=== PATIENT | female | born 1945 | race Two or more races ===

== ENCOUNTER 2021-08-08 07:05 | Inpatient (IN) | payer MEDICARE, OTHER ==
[~2021-08-08] VITALS: Ht 172.7 cm; Wt 96.0 kg
[2021-08-08] MEDS ORDERED: ONDANSETRON HCL 4 MG/2 ML VIAL IV ONE (07:45)
[2021-08-08] MEDS ORDERED: HYDROmorphone HCL 2 MG/ML VL/or syr IV ONE (07:45)
[2021-08-08 08:00] LABS: Basophils # (auto) 0 10 ^3/uL (0-0.2); Basophils % (auto) 0.3 % (0.0-2.0); Eosinophils # (auto) 0 10 ^3/uL (0-0.8); Hematocrit 43.4 % (36.0-46.0); Hemoglobin 14.5 g/dL (12.2-16.2); Lymphocytes # (auto) 1.3 10 ^3/uL (0.4-5.4); Lymphocytes % (auto) 7.5 % (10.0-50.0); Mean Corpuscular Hemoglobin 29.1 pg (28.0-32.0); Mean Corpuscular Hgb Conc. 33.4 g/dL (32.0-36.0); Monocytes # (auto) 0.5 10 ^3/uL (0-1.3); Monocytes % (auto) 2.7 % (0.0-12.0); Neutrophils # (auto) 15.3 10 ^3/uL (1.6-8.6); Neutrophils % (auto) 89.5 % (37.0-80.0); Nucleated Red Blood Cells % 0.2 %; Red Blood Cells 4.99 10^6/uL (4.0-5.20); White Blood Cell 17.1 10^3/uL (4.4-10.8)
[2021-08-08 08:07] LABS: Albumin 3.6 g/dL (3.4-5.0); BUN/Creatinine Ratio 14.9; Bilirubin, Total 0.3 mg/dL (0.2-1.0); Calcium 9.4 mg/dL (8.5-10.1); Lactic Acid w/Reflex 4.5 mmol/L (0.4-2.0); Total Protein 7.7 g/dL (6.4-8.2)
[2021-08-08 08:16] LABS: Potassium 3.9 mmol/L (3.5-5.1)
[2021-08-08] MEDS ORDERED: SODIUM CHLORIDE 0.9% 2,000 ML IV ONE (08:45)
[2021-08-08] MEDS ORDERED: IOHEXOL 300 MG/ML 100ML BOTTLE IJ ONE (09:00)
[2021-08-08 09:49] LABS: Cholesterol 165 mg/dL (< 200)
[2021-08-08 09:52] LABS: HDL Cholesterol 71 mg/dL (40-59); LDL Cholesterol 78 mg/dL (< 100); Triglycerides 146 mg/dL (< 150)
[2021-08-08] MEDS ORDERED: NITROGLYCERIN 0.4 MG SL TAB SL PRN (10:15)
[2021-08-08] MEDS ORDERED: MORPHINE SULFATE INJECTION 2 MG/ML SYRG IV PRN ×2 (10:15)
[2021-08-08] MEDS ORDERED: PANTOPRAZOLE 40 MG/10 ML VIAL INJ IV ONE (10:15)
[2021-08-08 10:24] LABS: Urine Bacteria FEW /hpf (None Seen); Urine Blood Negative /uL (Negative); Urine Specific Gravity 1.045 (1.001-1.035); Urine WBC <1 /hpf (0 - 5)
[2021-08-08] MEDS ORDERED: IPRATROPIUM BROM 0.5 MG/2.5ML INH SOL NEB ONE ×2 (12:45)
[2021-08-08] MEDS ORDERED: MONTELUKAST SODIUM 10 MG TAB PO ONE ×2 (12:45→15:00)
[2021-08-08] MEDS ORDERED: LORazepam 0.5 MG TAB PO PRN ×2 (12:45→13:45)
[2021-08-08] MEDS ORDERED: DOCUSATE SOD 100 MG CAP PO PRN (12:45)
[2021-08-08] MEDS ORDERED: D5W/LACTATED RINGERS 1,000 ML IV SCH (12:45)
[2021-08-08] MEDS ORDERED: BUDESONIDE (INHALATION) 0.5 MG/2 ML NEB NEB ONE ×2 (12:45→14:30)
[2021-08-08] MEDS ORDERED: LACTULOSE 20Gm/30ML SOLN PO PRN (12:45)
[2021-08-08] MEDS ORDERED: hydrALAZINE HCL 20 MG/ML VL IV PRN (12:45)
[2021-08-08] MEDS ORDERED: ONDANSETRON HCL 4 MG/2 ML VIAL IV PRN (12:45)
[2021-08-08] MEDS ORDERED: HYDROcodone-ACET 5/325MG TAB PO ONE ×2 (12:45)
[2021-08-08] MEDS ORDERED: HYDROcodone-ACET 5/325MG TAB PO PRN (12:45)
[2021-08-08] MEDS ORDERED: PIPERACILLIN-TAZOB 3.375GM 100 ML IV ONE ×2 (13:30→14:30)
[2021-08-08] MEDS: D5W/LACTATED RINGERS 1,000 ML IV SCH (13:45)
[2021-08-08 14:00] VITALS: BP 136/94
[2021-08-08] MEDS ORDERED: IPRATROPIUM BROM 0.5 MG/2.5ML INH SOL NEB SCH ×2 (14:00)
[2021-08-08] MEDS ORDERED: ACETYLCYSTEINE 10 %(100MG/ML) SOL 4ML NEB SCH ×2 (14:00→14:15)
[2021-08-08 14:52] LABS: INR 1.12 (0.9-1.15); Partial Thromboplastin Time 27.1 sec (23.6-33.0)
[2021-08-08 14:59] LABS: Magnesium 2.1 mg/dL (1.6-2.6); Phosphorus 2.3 mg/dL (2.5-4.90)
[2021-08-08 16:00] VITALS: BP 153/80
[2021-08-08] MEDS: ONDANSETRON HCL 4 MG/2 ML VIAL IV PRN (16:12)
[2021-08-08] MEDS: HYDROcodone-ACET 5/325MG TAB PO PRN ×2 (16:12→22:14)
[2021-08-08] MEDS ORDERED: HYDR1TAB97 (17:57)
[2021-08-08] MEDS ORDERED: SIMV-8 PO (17:57)
[2021-08-08] MEDS ORDERED: TRAZ1TAB12 PO (17:57)
[2021-08-08] MEDS ORDERED: PIPERACILLIN-TAZOB 3.375GM 100 ML IV SCH (18:00)
[2021-08-08] MEDS: PIPERACILLIN-TAZOB 3.375GM 100 ML IV SCH (21:02)
[2021-08-08 22:00] VITALS: BP 141/75
[2021-08-08] MEDS ORDERED: MONTELUKAST SODIUM 10 MG TAB PO SCH (22:00)
[2021-08-08] MEDS ORDERED: BUDESONIDE (INHALATION) 0.5 MG/2 ML NEB NEB SCH ×2 (22:00)
[2021-08-08] MEDS: DOCUSATE SOD 100 MG CAP PO PRN (22:13)
[2021-08-09] MEDS: PIPERACILLIN-TAZOB 3.375GM 100 ML IV SCH ×2 (03:02→09:28)
[2021-08-09] MEDS: D5W/LACTATED RINGERS 1,000 ML IV SCH ×3 (03:05→23:21)
[2021-08-09] MEDS: HYDROcodone-ACET 5/325MG TAB PO PRN ×3 (04:15→19:59)
[2021-08-09 05:00] VITALS: BP 121/65
[2021-08-09 06:51] LABS: Cholesterol 115 mg/dL (< 200); HDL Cholesterol 69 mg/dL (40-59); LDL Cholesterol 38 mg/dL (< 100); Lipase 2112 U/L (73-393); Triglycerides 61 mg/dL (< 150)
[2021-08-09 08:00] VITALS: BP 135/68
[2021-08-09] MEDS: ONDANSETRON HCL 4 MG/2 ML VIAL IV PRN ×2 (08:04→21:56)
[2021-08-09] MEDS: DOCUSATE SOD 100 MG CAP PO PRN (08:05)
[2021-08-09] MEDS: LACTULOSE 20Gm/30ML SOLN PO PRN (08:05)
[2021-08-09 09:00] VITALS: BP 135/68
[2021-08-09] MEDS: PANTOPRAZOLE 40 MG/10 ML VIAL INJ IV SCH (09:21)
[2021-08-09] MEDS ORDERED: ASPirin 81 mg TAB PO SCH ×2 (10:00)
[2021-08-09] MEDS: HYDROmorphone HCL 2 MG/ML VL/or syr IV PRN ×3 (12:02→21:56)
[2021-08-09 12:45] VITALS: BP 136/72
[2021-08-09 17:00] VITALS: BP 123/63
[2021-08-09] MEDS: MONTELUKAST SODIUM 10 MG TAB PO SCH (21:55)
[2021-08-09 22:00] VITALS: BP 103/53
[2021-08-10] MEDS: ONDANSETRON HCL 4 MG/2 ML VIAL IV PRN (03:08)
[2021-08-10] MEDS: HYDROmorphone HCL 2 MG/ML VL/or syr IV PRN ×5 (03:08→21:31)
[2021-08-10 05:00] VITALS: BP 109/54
[2021-08-10 06:00] LABS: Basophils # (auto) 0 10 ^3/uL (0-0.2); Basophils % (auto) 0.1 % (0.0-2.0); Eosinophils # (auto) 0.1 10 ^3/uL (0-0.8); Eosinophils % (auto) 0.4 % (0.0-7.0); Hematocrit 34.9 % (36.0-46.0); Hemoglobin 11.3 g/dL (12.2-16.2); Lymphocytes # (auto) 1.2 10 ^3/uL (0.4-5.4); Lymphocytes % (auto) 6.5 % (10.0-50.0); Mean Corpuscular Hemoglobin 28.6 pg (28.0-32.0); Mean Corpuscular Hgb Conc. 32.3 g/dL (32.0-36.0); Mean Corpuscular Volume 88.8 fL (80.0-100.0); Monocytes % (auto) 5.4 % (0.0-12.0); Neutrophils # (auto) 16.3 10 ^3/uL (1.6-8.6); Neutrophils % (auto) 87.6 % (37.0-80.0); Nucleated Red Blood Cells % 0.1 %; Red Blood Cells 3.93 10^6/uL (4.0-5.20); Red Cell Distribution Width 14.7 % (11.8-14.3); White Blood Cell 18.6 10^3/uL (4.4-10.8)
[2021-08-10 07:45] LABS: Alanine Aminotransferase 10 U/L (13-56); Alkaline Phosphatase 57 U/L (45-117); Anion Gap 6 (5-15); Aspartate Aminotransferase 11 U/L (15-37); BUN/Creatinine Ratio 13.2; Blood Urea Nitrogen 10 mg/dL (7-18); Carbon Dioxide 26 mmol/L (21-32); Chloride 108 mmol/L (98-107); GFR African American 95 mL/min; GFR Non-African American 79 mL/min; Glucose 142 mg/dL (74-106); Potassium 3.3 mmol/L (3.5-5.1); Sodium 140 mmol/L (136-145)
[2021-08-10 07:46] LABS: Albumin 2.2 g/dL (3.4-5.0); Bilirubin, Total 0.5 mg/dL (0.2-1.0); Calcium 7.3 mg/dL (8.5-10.1); Cholesterol 108 mg/dL (< 200); HDL Cholesterol 56 mg/dL (40-59); LDL Cholesterol 39 mg/dL (< 100); Total Protein 5.9 g/dL (6.4-8.2); Triglycerides 60 mg/dL (< 150)
[2021-08-10] MEDS: levoFLOXacin 500MG 100 ML IV SCH (08:29)
[2021-08-10] MEDS: PANTOPRAZOLE 40 MG/10 ML VIAL INJ IV SCH (08:36)
[2021-08-10 09:00] VITALS: BP 142/46
[2021-08-10] MEDS ORDERED: FLEET ENEMA(ADULT) 135 ML PR ONE (12:45)
[2021-08-10 13:00] VITALS: BP 101/57
[2021-08-10] MEDS: D5W/LACTATED RINGERS 1,000 ML IV SCH ×2 (13:09→23:36)
[2021-08-10 16:36] VITALS: BP 116/66
[2021-08-10] MEDS: MONTELUKAST SODIUM 10 MG TAB PO SCH (21:29)
[2021-08-10 22:00] VITALS: BP 125/68
[2021-08-11] MEDS: HYDROmorphone HCL 2 MG/ML VL/or syr IV PRN ×5 (01:28→19:49)
[2021-08-11] MEDS: D5W/LACTATED RINGERS 1,000 ML IV SCH ×3 (04:45→23:20)
[2021-08-11 05:00] VITALS: BP_SYST 117; BP_SYST 130; BP_DIAS 67; BP_DIAS 69
[2021-08-11 09:00] VITALS: BP 115/59
[2021-08-11] MEDS ORDERED: POTASSIUM CHL 20MEQ/100ML 100 ML IV ONE (10:00)
[2021-08-11] MEDS: DOCUSATE SOD 100 MG CAP PO SCH ×2 (10:00→21:58)
[2021-08-11] MEDS: DOCUSATE SOD 100 MG CAP PO PRN (10:22)
[2021-08-11] MEDS: PANTOPRAZOLE 40 MG/10 ML VIAL INJ IV SCH (10:22)
[2021-08-11] MEDS: levoFLOXacin 500MG 100 ML IV SCH (10:22)
[2021-08-11 13:00] VITALS: BP 114/56
[2021-08-11 17:00] VITALS: BP 106/49
[2021-08-11] MEDS: LACTULOSE 20Gm/30ML SOLN PO PRN (21:59)
[2021-08-11] MEDS: MONTELUKAST SODIUM 10 MG TAB PO SCH (21:59)
[2021-08-12] MEDS: HYDROmorphone HCL 2 MG/ML VL/or syr IV PRN ×5 (00:05→18:53)
[2021-08-12 06:29] LABS: Basophils # (auto) 0 10 ^3/uL (0-0.2); Basophils % (auto) 0.2 % (0.0-2.0); Eosinophils # (auto) 0.2 10 ^3/uL (0-0.8); Eosinophils % (auto) 1.5 % (0.0-7.0); Hematocrit 34.4 % (36.0-46.0); Hemoglobin 11.3 g/dL (12.2-16.2); Lymphocytes # (auto) 1.2 10 ^3/uL (0.4-5.4); Lymphocytes % (auto) 8.7 % (10.0-50.0); Mean Corpuscular Hemoglobin 28.9 pg (28.0-32.0); Mean Corpuscular Hgb Conc. 32.8 g/dL (32.0-36.0); Monocytes % (auto) 7.3 % (0.0-12.0); Neutrophils # (auto) 11.3 10 ^3/uL (1.6-8.6); Neutrophils % (auto) 82.3 % (37.0-80.0); Red Cell Distribution Width 14.3 % (11.8-14.3); White Blood Cell 13.8 10^3/uL (4.4-10.8)
[2021-08-12 07:24] LABS: BUN/Creatinine Ratio 9.2; Potassium 3.2 mmol/L (3.5-5.1)
[2021-08-12 09:12] VITALS: BP 134/56
[2021-08-12] MEDS: DOCUSATE SOD 100 MG CAP PO SCH ×2 (09:35→22:43)
[2021-08-12] MEDS: levoFLOXacin 500MG 100 ML IV SCH (09:35)
[2021-08-12] MEDS ORDERED: IOHEXOL 300 MG/ML 100ML BOTTLE IJ ONE (10:24)
[2021-08-12 12:00] VITALS: BP 122/61
[2021-08-12] MEDS: POTASSIUM CHL 20MEQ/100ML 100 ML IV SCH ×2 (12:26→17:32)
[2021-08-12] MEDS: D5W/LACTATED RINGERS 1,000 ML IV SCH ×2 (12:41→20:15)
[2021-08-12] MEDS: metroNIDAZOLE 500MG/100ML 100 ML IV SCH ×2 (14:07→22:43)
[2021-08-12 17:00] VITALS: BP 145/80
[2021-08-12 22:00] VITALS: BP 121/71
[2021-08-12] MEDS: HYDROcodone-ACET 5/325MG TAB PO PRN (22:44)
[2021-08-12] MEDS: MONTELUKAST SODIUM 10 MG TAB PO SCH (22:45)
[2021-08-13] MEDS: HYDROmorphone HCL 2 MG/ML VL/or syr IV PRN ×6 (00:14→22:42)
[2021-08-13 05:00] VITALS: BP 123/76
[2021-08-13] MEDS: metroNIDAZOLE 500MG/100ML 100 ML IV SCH ×3 (05:52→22:01)
[2021-08-13] MEDS: D5W/LACTATED RINGERS 1,000 ML IV SCH ×2 (06:04→16:18)
[2021-08-13 06:34] LABS: Basophils # (auto) 0 10 ^3/uL (0-0.2); Basophils % (auto) 0.3 % (0.0-2.0); Eosinophils # (auto) 0.3 10 ^3/uL (0-0.8); Eosinophils % (auto) 2.4 % (0.0-7.0); Hematocrit 32.1 % (36.0-46.0); Hemoglobin 10.5 g/dL (12.2-16.2); Lymphocytes # (auto) 1.3 10 ^3/uL (0.4-5.4); Mean Corpuscular Hemoglobin 28.2 pg (28.0-32.0); Mean Corpuscular Hgb Conc. 32.6 g/dL (32.0-36.0); Mean Corpuscular Volume 86.6 fL (80.0-100.0); Monocytes # (auto) 0.9 10 ^3/uL (0-1.3); Monocytes % (auto) 7.7 % (0.0-12.0); Neutrophils # (auto) 9.1 10 ^3/uL (1.6-8.6); Neutrophils % (auto) 78.6 % (37.0-80.0); Red Cell Distribution Width 14.2 % (11.8-14.3); White Blood Cell 11.6 10^3/uL (4.4-10.8)
[2021-08-13 06:45] LABS: BUN/Creatinine Ratio 4.9; Calcium 7.4 mg/dL (8.5-10.1); Magnesium 2.2 mg/dL (1.6-2.6); Potassium 3.1 mmol/L (3.5-5.1)
[2021-08-13 09:00] VITALS: BP 135/68
[2021-08-13] MEDS: DOCUSATE SOD 100 MG CAP PO SCH (09:34)
[2021-08-13] MEDS: levoFLOXacin 500MG 100 ML IV SCH (09:35)
[2021-08-13] MEDS ORDERED: TPN PER PHARMACY 0 ML IV SCH (10:00)
[2021-08-13] MEDS ORDERED: ENOXAPARIN SOD 40 MG/0.4 ML SYRINGE SC ONE (10:00)
[2021-08-13] MEDS ORDERED: PANTOPRAZOLE 40 MG/10 ML VIAL INJ IV ONE (10:00)
[2021-08-13] MEDS: POTASSIUM CHL 20MEQ/100ML 100 ML IV SCH ×2 (10:54→13:14)
[2021-08-13 11:48] LABS: Magnesium 2.1 mg/dL (1.6-2.6)
[2021-08-13 11:57] LABS: Albumin 1.8 g/dL (3.4-5.0); BUN/Creatinine Ratio 7.1; Bilirubin, Total 0.6 mg/dL (0.2-1.0); Calcium 7.8 mg/dL (8.5-10.1); Total Protein 5.6 g/dL (6.4-8.2)
[2021-08-13 13:00] VITALS: BP 127/72
[2021-08-13] MEDS ORDERED: SODIUM PHOSPHATES 40 MEQ in D5W 5% 250 ML IV ONE (13:30)
[2021-08-13] MEDS ORDERED: DEXTROSE (50%) 50ML SYRG IV SCH (13:30)
[2021-08-13 16:47] VITALS: BP 140/83
[2021-08-13] MEDS: ACCU-CHEK COMFORT CURVE STRIP VI SCH (17:54)
[2021-08-13] MEDS: InsuLIN REG 1unit/0.01ml Soln (100units/ml) SC SCH (17:55)
[2021-08-13] MEDS ORDERED: PPN PER PHARMACY IV NR ×8 (20:00)
[2021-08-13] MEDS: HYDROcodone-ACET 5/325MG TAB PO PRN (21:46)
[2021-08-13 22:00] VITALS: BP 158/71
[2021-08-14] MEDS: InsuLIN REG 1unit/0.01ml Soln (100units/ml) SC SCH ×5 (00:04→23:26)
[2021-08-14] MEDS: ACCU-CHEK COMFORT CURVE STRIP VI SCH ×5 (00:04→23:26)
[2021-08-14] MEDS: D5W/LACTATED RINGERS 1,000 ML IV SCH (02:15)
[2021-08-14] MEDS: HYDROmorphone HCL 2 MG/ML VL/or syr IV PRN ×5 (04:49→23:25)
[2021-08-14 05:00] VITALS: BP 147/67
[2021-08-14] MEDS: metroNIDAZOLE 500MG/100ML 100 ML IV SCH ×3 (05:34→22:00)
[2021-08-14 06:35] LABS: Basophils # (auto) 0 10 ^3/uL (0-0.2); Basophils % (auto) 0.3 % (0.0-2.0); Eosinophils # (auto) 0.2 10 ^3/uL (0-0.8); Eosinophils % (auto) 1.7 % (0.0-7.0); Hematocrit 30.7 % (36.0-46.0); Hemoglobin 10.3 g/dL (12.2-16.2); Lymphocytes # (auto) 1.2 10 ^3/uL (0.4-5.4); Lymphocytes % (auto) 10.5 % (10.0-50.0); Mean Corpuscular Hemoglobin 29.2 pg (28.0-32.0); Mean Corpuscular Hgb Conc. 33.7 g/dL (32.0-36.0); Mean Corpuscular Volume 86.6 fL (80.0-100.0); Monocytes % (auto) 8.9 % (0.0-12.0); Neutrophils # (auto) 9.3 10 ^3/uL (1.6-8.6); Neutrophils % (auto) 78.6 % (37.0-80.0); Nucleated Red Blood Cells % 0.1 %; Red Blood Cells 3.54 10^6/uL (4.0-5.20); Red Cell Distribution Width 14.6 % (11.8-14.3); White Blood Cell 11.8 10^3/uL (4.4-10.8)
[2021-08-14 06:42] LABS: Albumin 1.6 g/dL (3.4-5.0); Calcium 7.6 mg/dL (8.5-10.1); Magnesium 2.2 mg/dL (1.6-2.6)
[2021-08-14 06:46] LABS: BUN/Creatinine Ratio 10.7; Bilirubin, Total 0.3 mg/dL (0.2-1.0); Phosphorus 1.9 mg/dL (2.5-4.90); Total Protein 5.5 g/dL (6.4-8.2)
[2021-08-14 06:49] LABS: Potassium 2.8 mmol/L (3.5-5.1)
[2021-08-14] MEDS ORDERED: POTASSIUM CHL 20 Meq TABLET PO ONE (07:45)
[2021-08-14] MEDS ORDERED: POTASSIUM PHOSPHATE 44 MEQ in D5W 5% 250 ML IV ONE (08:15)
[2021-08-14 09:00] VITALS: BP 124/71
[2021-08-14] MEDS: levoFLOXacin 500MG 100 ML IV SCH (10:06)
[2021-08-14] MEDS: PANTOPRAZOLE 40 MG/10 ML VIAL INJ IV SCH (10:07)
[2021-08-14] MEDS: ENOXAPARIN SOD 40 MG/0.4 ML SYRINGE SC SCH (10:08)
[2021-08-14] MEDS: LACTATED RINGER'S 1,000 ML IV SCH (12:40)
[2021-08-14 13:00] VITALS: BP 131/87
[2021-08-14 17:00] VITALS: BP 150/77
[2021-08-14] MEDS ORDERED: PPN PER PHARMACY IV NR ×10 (20:00)
[2021-08-14 22:00] VITALS: BP 153/78
[2021-08-14] MEDS: HYDROcodone-ACET 5/325MG TAB PO PRN (22:00)
[2021-08-15] MEDS: HYDROmorphone HCL 2 MG/ML VL/or syr IV PRN ×4 (04:04→22:02)
[2021-08-15] MEDS: ACCU-CHEK COMFORT CURVE STRIP VI SCH ×3 (05:32→18:02)
[2021-08-15] MEDS: metroNIDAZOLE 500MG/100ML 100 ML IV SCH ×3 (05:32→22:02)
[2021-08-15] MEDS: InsuLIN REG 1unit/0.01ml Soln (100units/ml) SC SCH ×3 (05:34→18:00)
[2021-08-15] MEDS: LACTATED RINGER'S 1,000 ML IV SCH (06:36)
[2021-08-15 06:43] LABS: Potassium 3.6 mmol/L (3.5-5.1)
[2021-08-15 06:50] LABS: Albumin 1.6 g/dL (3.4-5.0); BUN/Creatinine Ratio 18.4; Bilirubin, Total 0.3 mg/dL (0.2-1.0); Calcium 7.8 mg/dL (8.5-10.1); Magnesium 2.2 mg/dL (1.6-2.6); Phosphorus 2.1 mg/dL (2.5-4.90); Total Protein 5.6 g/dL (6.4-8.2)
[2021-08-15 09:00] VITALS: BP 166/71
[2021-08-15] MEDS: levoFLOXacin 500MG 100 ML IV SCH (09:12)
[2021-08-15] MEDS: PANTOPRAZOLE 40 MG/10 ML VIAL INJ IV SCH (09:12)
[2021-08-15] MEDS: ENOXAPARIN SOD 40 MG/0.4 ML SYRINGE SC SCH (09:13)
[2021-08-15] MEDS: HYDROcodone-ACET 5/325MG TAB PO PRN ×2 (09:24→16:41)
[2021-08-15] MEDS ORDERED: POTASSIUM PHOSPHATE 22 MEQ in SODIUM CHL 0.9% 100 ML IV ONE (10:00)
[2021-08-15 13:00] VITALS: BP 129/73
[2021-08-15 17:00] VITALS: BP 158/87
[2021-08-15] MEDS ORDERED: PPN PER PHARMACY IV NR ×9 (20:00)
[2021-08-15 21:27] VITALS: BP 163/95
[2021-08-15] MEDS: hydrALAZINE HCL 20 MG/ML VL IV PRN (22:55)
[2021-08-16] MEDS: HYDROcodone-ACET 5/325MG TAB PO PRN ×2 (00:06→09:59)
[2021-08-16] MEDS: ACCU-CHEK COMFORT CURVE STRIP VI SCH ×5 (00:13→23:28)
[2021-08-16] MEDS: InsuLIN REG 1unit/0.01ml Soln (100units/ml) SC SCH ×5 (00:14→23:27)
[2021-08-16] MEDS: LACTATED RINGER'S 1,000 ML IV SCH ×2 (03:06→23:26)
[2021-08-16] MEDS: HYDROmorphone HCL 2 MG/ML VL/or syr IV PRN ×2 (03:22→20:36)
[2021-08-16 06:15] LABS: Potassium 3.3 mmol/L (3.5-5.1)
[2021-08-16] MEDS: metroNIDAZOLE 500MG/100ML 100 ML IV SCH ×3 (06:18→22:17)
[2021-08-16 06:28] LABS: Albumin 1.8 g/dL (3.4-5.0); BUN/Creatinine Ratio 15.6; Bilirubin, Total 0.4 mg/dL (0.2-1.0); Calcium 8.1 mg/dL (8.5-10.1); Magnesium 2.3 mg/dL (1.6-2.6); Phosphorus 2.1 mg/dL (2.5-4.90)
[2021-08-16 09:00] VITALS: BP 159/89
[2021-08-16] MEDS ORDERED: POTASSIUM CHL 20MEQ/100ML 100 ML IV ONE (09:00)
[2021-08-16] MEDS: PANTOPRAZOLE 40 MG/10 ML VIAL INJ IV SCH (09:59)
[2021-08-16] MEDS: levoFLOXacin 500MG 100 ML IV SCH (10:00)
[2021-08-16] MEDS: ENOXAPARIN SOD 40 MG/0.4 ML SYRINGE SC SCH (10:00)
[2021-08-16] MEDS: hydrALAZINE HCL 20 MG/ML VL IV PRN (10:19)
[2021-08-16] MEDS ORDERED: POTASSIUM PHOSP 26.4MEQ(18MMOL) IN NS 100 ML IV ONE (11:00)
[2021-08-16] MEDS: ACETAMINOPHEN 325 MG TAB PO PRN (11:17)
[2021-08-16 13:00] VITALS: BP 109/66
[2021-08-16 16:55] VITALS: BP 112/71
[2021-08-16] MEDS ORDERED: PPN PER PHARMACY IV NR ×10 (20:00)
[2021-08-16 22:00] VITALS: BP 139/65
[2021-08-17] MEDS: HYDROmorphone HCL 2 MG/ML VL/or syr IV PRN ×4 (04:10→22:10)
[2021-08-17 05:00] VITALS: BP 184/84
[2021-08-17] MEDS: metroNIDAZOLE 500MG/100ML 100 ML IV SCH ×3 (06:38→21:39)
[2021-08-17] MEDS: ACCU-CHEK COMFORT CURVE STRIP VI SCH ×3 (06:38→18:18)
[2021-08-17] MEDS: hydrALAZINE HCL 20 MG/ML VL IV PRN (06:42)
[2021-08-17] MEDS: InsuLIN REG 1unit/0.01ml Soln (100units/ml) SC SCH ×3 (06:43→18:00)
[2021-08-17 07:28] LABS: Albumin 1.7 g/dL (3.4-5.0); Calcium 7.5 mg/dL (8.5-10.1); Magnesium 2.4 mg/dL (1.6-2.6); Potassium 3.3 mmol/L (3.5-5.1)
[2021-08-17 07:33] LABS: Bilirubin, Total 0.2 mg/dL (0.2-1.0); Phosphorus 1.9 mg/dL (2.5-4.90); Total Protein 5.6 g/dL (6.4-8.2)
[2021-08-17] MEDS: ACETAMINOPHEN 325 MG TAB PO PRN ×2 (07:43→12:40)
[2021-08-17] MEDS ORDERED: POTASSIUM PHOSPHATE 22 MEQ in SODIUM CHL 0.9% 100 ML IV ONE (08:15)
[2021-08-17 08:46] VITALS: BP 146/74
[2021-08-17] MEDS: levoFLOXacin 500MG 100 ML IV SCH (09:53)
[2021-08-17] MEDS: PANTOPRAZOLE 40 MG/10 ML VIAL INJ IV SCH (09:54)
[2021-08-17] MEDS: ENOXAPARIN SOD 40 MG/0.4 ML SYRINGE SC SCH (09:54)
[2021-08-17 13:05] VITALS: BP 124/74
[2021-08-17] MEDS: HYDROcodone-ACET 5/325MG TAB PO PRN (15:21)
[2021-08-17] MEDS ORDERED: METOPROLOL TARTRATE 50 MG TAB PO ONE (16:30)
[2021-08-17] MEDS ORDERED: VANCOMYCIN 1GM/250ML 250 ML IV ONE (16:30)
[2021-08-17] MEDS ORDERED: VANCOMYCIN PER PHARMACY 0 MG IV SCH (16:30)
[2021-08-17] MEDS ORDERED: LACTATED RINGER'S 1,000 ML IV SCH ×2 (16:30→17:45)
[2021-08-17 17:30] VITALS: BP 124/61
[2021-08-17] MEDS ORDERED: PPN PER PHARMACY IV NR ×11 (20:00)
[2021-08-17 22:00] VITALS: BP 145/76
[2021-08-18] MEDS: HYDROmorphone HCL 2 MG/ML VL/or syr IV PRN ×5 (03:27→22:13)
[2021-08-18 05:00] VITALS: BP 114/58
[2021-08-18] MEDS: VANCOMYCIN 1GM/250ML 250 ML IV SCH ×2 (05:00→17:05)
[2021-08-18] MEDS: InsuLIN REG 1unit/0.01ml Soln (100units/ml) SC SCH ×4 (06:00→18:00)
[2021-08-18] MEDS: ACCU-CHEK COMFORT CURVE STRIP VI SCH ×4 (06:00→18:48)
[2021-08-18 06:45] LABS: Basophils # (auto) 0 10 ^3/uL (0-0.2); Basophils % (auto) 0.4 % (0.0-2.0); Eosinophils # (auto) 0 10 ^3/uL (0-0.8); Eosinophils % (auto) 0.1 % (0.0-7.0); Hematocrit 30.8 % (36.0-46.0); Hemoglobin 10.3 g/dL (12.2-16.2); Lymphocytes # (auto) 0.6 10 ^3/uL (0.4-5.4); Lymphocytes % (auto) 5.8 % (10.0-50.0); Mean Corpuscular Hemoglobin 28.1 pg (28.0-32.0); Mean Corpuscular Hgb Conc. 33.3 g/dL (32.0-36.0); Mean Corpuscular Volume 84.4 fL (80.0-100.0); Monocytes # (auto) 0.5 10 ^3/uL (0-1.3); Monocytes % (auto) 4.7 % (0.0-12.0); Neutrophils # (auto) 9.9 10 ^3/uL (1.6-8.6); Red Blood Cells 3.65 10^6/uL (4.0-5.20); Red Cell Distribution Width 15.2 % (11.8-14.3); White Blood Cell 11.1 10^3/uL (4.4-10.8)
[2021-08-18] MEDS: metroNIDAZOLE 500MG/100ML 100 ML IV SCH ×3 (07:00→22:17)
[2021-08-18 07:04] LABS: Potassium 3.2 mmol/L (3.5-5.1)
[2021-08-18 07:16] LABS: Albumin 1.7 g/dL (3.4-5.0); BUN/Creatinine Ratio 28.6; Bilirubin, Total 0.3 mg/dL (0.2-1.0); Calcium 7.2 mg/dL (8.5-10.1); Magnesium 2.3 mg/dL (1.6-2.6); Total Protein 5.5 g/dL (6.4-8.2)
[2021-08-18 08:30] VITALS: BP 100/56
[2021-08-18] MEDS ORDERED: POTASSIUM PHOSPHATE 22 MEQ in SODIUM CHL 0.9% 100 ML IV ONE (08:30)
[2021-08-18] MEDS ORDERED: POTASSIUM PHOSPHATE 44 MEQ in D5W 5% 250 ML IV ONE (08:30)
[2021-08-18] MEDS: LACTATED RINGER'S 1,000 ML IV SCH (09:30)
[2021-08-18] MEDS ORDERED: METOPROLOL TARTRATE 25 MG TAB PO SCH (10:00)
[2021-08-18] MEDS: levoFLOXacin 500MG 100 ML IV SCH (10:11)
[2021-08-18] MEDS: PANTOPRAZOLE 40 MG/10 ML VIAL INJ IV SCH (10:11)
[2021-08-18] MEDS: ENOXAPARIN SOD 40 MG/0.4 ML SYRINGE SC SCH (10:12)
[2021-08-18 12:45] VITALS: BP 119/69
[2021-08-18 17:00] VITALS: BP 145/52
[2021-08-18] MEDS ORDERED: ENOXAPARIN SOD 100 MG/1 ML SYRINGE SC ONE (17:30)
[2021-08-18] MEDS ORDERED: PPN PER PHARMACY IV NR ×12 (20:00)
[2021-08-18 22:00] VITALS: BP 118/48
[2021-08-18] MEDS: METOPROLOL TARTRATE 25 MG TAB PO SCH (22:18)
[2021-08-19] MEDS: LACTATED RINGER'S 1,000 ML IV SCH ×3 (00:50→11:15)
[2021-08-19] MEDS: ACCU-CHEK COMFORT CURVE STRIP VI SCH ×5 (00:51→23:26)
[2021-08-19 05:00] VITALS: BP 110/65
[2021-08-19] MEDS: metroNIDAZOLE 500MG/100ML 100 ML IV SCH ×3 (05:17→21:43)
[2021-08-19] MEDS: HYDROmorphone HCL 2 MG/ML VL/or syr IV PRN ×4 (05:19→22:11)
[2021-08-19] MEDS: InsuLIN REG 1unit/0.01ml Soln (100units/ml) SC SCH ×5 (05:34→23:27)
[2021-08-19 06:16] LABS: Basophils # (auto) 0 10 ^3/uL (0-0.2); Basophils % (auto) 0.3 % (0.0-2.0); Eosinophils # (auto) 0.1 10 ^3/uL (0-0.8); Eosinophils % (auto) 1.2 % (0.0-7.0); Hematocrit 28.9 % (36.0-46.0); Hemoglobin 9.8 g/dL (12.2-16.2); Lymphocytes # (auto) 0.9 10 ^3/uL (0.4-5.4); Lymphocytes % (auto) 10.5 % (10.0-50.0); Mean Corpuscular Hemoglobin 28.8 pg (28.0-32.0); Mean Corpuscular Hgb Conc. 34.1 g/dL (32.0-36.0); Mean Corpuscular Volume 84.3 fL (80.0-100.0); Monocytes # (auto) 0.8 10 ^3/uL (0-1.3); Monocytes % (auto) 8.7 % (0.0-12.0); Neutrophils % (auto) 79.3 % (37.0-80.0); Red Blood Cells 3.42 10^6/uL (4.0-5.20); Red Cell Distribution Width 15.1 % (11.8-14.3); White Blood Cell 8.9 10^3/uL (4.4-10.8)
[2021-08-19 06:32] LABS: Albumin 1.5 g/dL (3.4-5.0); Calcium 7.4 mg/dL (8.5-10.1); Magnesium 2.5 mg/dL (1.6-2.6); Potassium 3.7 mmol/L (3.5-5.1)
[2021-08-19 06:34] LABS: BUN/Creatinine Ratio 29.1
[2021-08-19 06:36] LABS: Bilirubin, Total 0.3 mg/dL (0.2-1.0); Phosphorus 2.9 mg/dL (2.5-4.90)
[2021-08-19] MEDS ORDERED: VANCOMYCIN 1GM/250ML 250 ML IV SCH ×2 (08:00→09:45)
[2021-08-19] MEDS: PANTOPRAZOLE 40 MG/10 ML VIAL INJ IV SCH (08:33)
[2021-08-19] MEDS: METOPROLOL TARTRATE 25 MG TAB PO SCH ×2 (08:35→21:49)
[2021-08-19] MEDS: ENOXAPARIN SOD 100 MG/1 ML SYRINGE SC SCH ×2 (08:36→21:44)
[2021-08-19 09:00] VITALS: BP 134/55
[2021-08-19] MEDS: levoFLOXacin 500MG 100 ML IV SCH (10:46)
[2021-08-19 13:00] VITALS: BP 153/69
[2021-08-19 17:04] VITALS: BP 154/56
[2021-08-19] MEDS: SALINE 0.65 % NASAL SPRAY 45ML BOTTLE EACHNOSTRI SCH ×2 (18:03→21:43)
[2021-08-19] MEDS: VANCOMYCIN 1GM/250ML 250 ML IV SCH (18:14)
[2021-08-19] MEDS ORDERED: PPN PER PHARMACY IV NR ×12 (20:00)
[2021-08-19 22:00] VITALS: BP 178/61
[2021-08-20] MEDS: VANCOMYCIN 1GM/250ML 250 ML IV SCH (03:29)
[2021-08-20] MEDS: HYDROmorphone HCL 2 MG/ML VL/or syr IV PRN ×4 (03:31→17:05)
[2021-08-20 05:00] VITALS: BP 159/69
[2021-08-20] MEDS: SALINE 0.65 % NASAL SPRAY 45ML BOTTLE EACHNOSTRI SCH ×4 (05:24→22:00)
[2021-08-20] MEDS: metroNIDAZOLE 500MG/100ML 100 ML IV SCH ×3 (05:24→22:06)
[2021-08-20] MEDS: ACCU-CHEK COMFORT CURVE STRIP VI SCH ×3 (05:25→17:09)
[2021-08-20] MEDS: InsuLIN REG 1unit/0.01ml Soln (100units/ml) SC SCH ×3 (05:25→17:08)
[2021-08-20] MEDS: hydrALAZINE HCL 20 MG/ML VL IV PRN (05:48)
[2021-08-20 07:06] LABS: Albumin 1.6 g/dL (3.4-5.0); Calcium 7.2 mg/dL (8.5-10.1); Magnesium 2.3 mg/dL (1.6-2.6); Potassium 3.5 mmol/L (3.5-5.1)
[2021-08-20 07:12] LABS: Bilirubin, Total 0.4 mg/dL (0.2-1.0); Phosphorus 1.9 mg/dL (2.5-4.90); Total Protein 5.4 g/dL (6.4-8.2)
[2021-08-20] MEDS ORDERED: POTASSIUM PHOSPHATE 44 MEQ in D5W 5% 250 ML IV ONE ×4 (08:00)
[2021-08-20 09:00] VITALS: BP 165/81
[2021-08-20] MEDS: METOPROLOL TARTRATE 25 MG TAB PO SCH (10:01)
[2021-08-20] MEDS: PANTOPRAZOLE 40 MG/10 ML VIAL INJ IV SCH (10:01)
[2021-08-20] MEDS: levoFLOXacin 500MG 100 ML IV SCH (10:01)
[2021-08-20] MEDS: ENOXAPARIN SOD 100 MG/1 ML SYRINGE SC SCH ×2 (10:02→22:10)
[2021-08-20] MEDS: LACTATED RINGER'S 1,000 ML IV SCH (11:55)
[2021-08-20 13:00] VITALS: BP 161/70
[2021-08-20 17:00] VITALS: BP 186/87
[2021-08-20] MEDS ORDERED: PPN PER PHARMACY IV NR ×24 (20:00)
[2021-08-20 22:00] VITALS: BP 180/71
[2021-08-20] MEDS ORDERED: METOPROLOL TARTRATE 25 MG TAB PO SCH (22:00)
[2021-08-21] VITALS (16 sets, daily range): BP systolic 107–190; BP diastolic 59–92
[2021-08-21] MEDS: ONDANSETRON HCL 4 MG/2 ML VIAL IV PRN (02:47)
[2021-08-21] MEDS: ACCU-CHEK COMFORT CURVE STRIP VI SCH ×5 (06:00→23:49)
[2021-08-21] MEDS: metroNIDAZOLE 500MG/100ML 100 ML IV SCH (06:00)
[2021-08-21] MEDS: SALINE 0.65 % NASAL SPRAY 45ML BOTTLE EACHNOSTRI SCH ×4 (06:00→20:34)
[2021-08-21] MEDS: InsuLIN REG 1unit/0.01ml Soln (100units/ml) SC SCH ×5 (06:00→23:49)
[2021-08-21 06:45] LABS: Hemoglobin 10.7 g/dL (12.2-16.2); Mean Corpuscular Hemoglobin 27.9 pg (28.0-32.0); Mean Corpuscular Hgb Conc. 33.3 g/dL (32.0-36.0); Mean Corpuscular Volume 83.6 fL (80.0-100.0); Red Blood Cells 3.83 10^6/uL (4.0-5.20); Red Cell Distribution Width 15.2 % (11.8-14.3); White Blood Cell 21.3 10^3/uL (4.4-10.8)
[2021-08-21 06:47] LABS: Basophils % (manual) 0 (0.0-2.0); Blast Cells 0; Eosinophils % (manual) 0 (0-7); Metamyelocytes % 0; Myelocytes % 0; Promyelocytes % 0; Reactive Lymphocytes 0
[2021-08-21 06:58] LABS: Albumin 1.9 g/dL (3.4-5.0); Calcium 7.6 mg/dL (8.5-10.1); Magnesium 2.2 mg/dL (1.6-2.6); Potassium 3.5 mmol/L (3.5-5.1)
[2021-08-21 07:01] LABS: Bilirubin, Total 0.5 mg/dL (0.2-1.0); Phosphorus 2.2 mg/dL (2.5-4.90)
[2021-08-21] MEDS ORDERED: POTASSIUM PHOSPHATE 22 MEQ in SODIUM CHL 0.9% 100 ML IV ONE (08:00)
[2021-08-21 08:11] LABS: Band Neutrophils % (manual) 18; Lymphocytes % (manual) 3 (10.0-50.0); Monocytes % (manual) 2 (0-12)
[2021-08-21] MEDS ORDERED: POTASSIUM PHOSPHATE 44 MEQ in D5W 5% 250 ML IV ONE (08:30)
[2021-08-21] MEDS ORDERED: MEROPENEM 1GM IVPB 100 ML IV ONE (09:45)
[2021-08-21] MEDS ORDERED: VANCOMYCIN PER PHARMACY 0 MG IV SCH (09:45)
[2021-08-21] MEDS ORDERED: FLUCONAZOLE 200MG/100ML 100 ML IV ONE (09:45)
[2021-08-21] MEDS ORDERED: VANCOMYCIN 1GM/250ML 250 ML IV ONE (10:00)
[2021-08-21] MEDS: PANTOPRAZOLE 40 MG/10 ML VIAL INJ IV SCH (10:00)
[2021-08-21] MEDS: ENOXAPARIN SOD 100 MG/1 ML SYRINGE SC SCH ×2 (10:00→20:32)
[2021-08-21] MEDS: FLUCONAZOLE 200MG/100ML 100 ML IV SCH (10:00)
[2021-08-21 10:50] LABS: Urine Bacteria NONE SEEN /hpf (None Seen); Urine Blood Negative /uL (Negative); Urine Specific Gravity 1.008 (1.001-1.035); Urine WBC 2 /hpf (0 - 5)
[2021-08-21] MEDS: hydrALAZINE HCL 20 MG/ML VL IV PRN ×2 (15:00→18:50)
[2021-08-21] MEDS: MEROPENEM 1GM IVPB 100 ML IV SCH (18:00)
[2021-08-21] MEDS ORDERED: PPN PER PHARMACY IV NR ×12 (20:00)
[2021-08-21] MEDS: VANCOMYCIN 1GM/250ML 250 ML IV SCH (21:55)
[2021-08-22] VITALS (13 sets, daily range): BP systolic 103–176; BP diastolic 58–77
[2021-08-22] MEDS: MEROPENEM 1GM IVPB 100 ML IV SCH ×3 (02:33→17:32)
[2021-08-22 03:56] LABS: Basophils # (auto) 0.1 10 ^3/uL (0-0.2); Basophils % (auto) 0.6 % (0.0-2.0); Eosinophils # (auto) 0.3 10 ^3/uL (0-0.8); Eosinophils % (auto) 1.7 % (0.0-7.0); Hematocrit 30.3 % (36.0-46.0); Lymphocytes # (auto) 2.1 10 ^3/uL (0.4-5.4); Lymphocytes % (auto) 14.2 % (10.0-50.0); Mean Corpuscular Hemoglobin 28.3 pg (28.0-32.0); Mean Corpuscular Hgb Conc. 33.1 g/dL (32.0-36.0); Mean Corpuscular Volume 85.7 fL (80.0-100.0); Monocytes # (auto) 0.9 10 ^3/uL (0-1.3); Monocytes % (auto) 6.3 % (0.0-12.0); Neutrophils # (auto) 11.6 10 ^3/uL (1.6-8.6); Neutrophils % (auto) 77.2 % (37.0-80.0); Red Blood Cells 3.54 10^6/uL (4.0-5.20); Red Cell Distribution Width 15.3 % (11.8-14.3)
[2021-08-22 04:14] LABS: Albumin 1.7 g/dL (3.4-5.0); Magnesium 2.6 mg/dL (1.6-2.6); Potassium 3.9 mmol/L (3.5-5.1)
[2021-08-22 04:16] LABS: BUN/Creatinine Ratio 32.7
[2021-08-22] MEDS: HYDROmorphone HCL 2 MG/ML VL/or syr IV PRN ×3 (04:22→18:52)
[2021-08-22 04:23] LABS: Bilirubin, Total 0.4 mg/dL (0.2-1.0); Calcium 7.8 mg/dL (8.5-10.1); Phosphorus 2.5 mg/dL (2.5-4.90); Total Protein 5.7 g/dL (6.4-8.2)
[2021-08-22] MEDS: ACCU-CHEK COMFORT CURVE STRIP VI SCH ×3 (04:25→17:30)
[2021-08-22] MEDS: SALINE 0.65 % NASAL SPRAY 45ML BOTTLE EACHNOSTRI SCH ×2 (04:25→12:00)
[2021-08-22] MEDS: InsuLIN REG 1unit/0.01ml Soln (100units/ml) SC SCH ×3 (04:40→17:20)
[2021-08-22] MEDS: FLUCONAZOLE 200MG/100ML 100 ML IV SCH (08:32)
[2021-08-22] MEDS: ENOXAPARIN SOD 100 MG/1 ML SYRINGE SC SCH ×2 (09:19→21:57)
[2021-08-22] MEDS: PANTOPRAZOLE 40 MG/10 ML VIAL INJ IV SCH (09:19)
[2021-08-22] MEDS: VANCOMYCIN 1GM/250ML 250 ML IV SCH ×2 (09:29→22:05)
[2021-08-22] MEDS ORDERED: SALINE 0.65 % NASAL SPRAY 45ML BOTTLE EACHNOSTRI PRN (17:30)
[2021-08-22] MEDS: hydrALAZINE HCL 20 MG/ML VL IV PRN (18:29)
[2021-08-22] MEDS ORDERED: PPN PER PHARMACY IV NR ×11 (20:00)
[2021-08-23] MEDS: ACCU-CHEK COMFORT CURVE STRIP VI SCH ×4 (00:25→18:00)
[2021-08-23] MEDS: InsuLIN REG 1unit/0.01ml Soln (100units/ml) SC SCH ×4 (00:27→18:00)
[2021-08-23] MEDS: MEROPENEM 1GM IVPB 100 ML IV SCH ×3 (03:15→17:30)
[2021-08-23 05:07] VITALS: BP 128/70
[2021-08-23 05:59] LABS: Basophils # (auto) 0.1 10 ^3/uL (0-0.2); Basophils % (auto) 0.6 % (0.0-2.0); Eosinophils # (auto) 0.3 10 ^3/uL (0-0.8); Eosinophils % (auto) 2.5 % (0.0-7.0); Hematocrit 30.4 % (36.0-46.0); Hemoglobin 10.2 g/dL (12.2-16.2); Lymphocytes # (auto) 1.8 10 ^3/uL (0.4-5.4); Lymphocytes % (auto) 16.2 % (10.0-50.0); Mean Corpuscular Hemoglobin 28.6 pg (28.0-32.0); Mean Corpuscular Hgb Conc. 33.6 g/dL (32.0-36.0); Mean Corpuscular Volume 85.2 fL (80.0-100.0); Monocytes # (auto) 0.8 10 ^3/uL (0-1.3); Monocytes % (auto) 6.9 % (0.0-12.0); Neutrophils # (auto) 8.4 10 ^3/uL (1.6-8.6); Neutrophils % (auto) 73.8 % (37.0-80.0); Red Blood Cells 3.56 10^6/uL (4.0-5.20); Red Cell Distribution Width 15.4 % (11.8-14.3); White Blood Cell 11.4 10^3/uL (4.4-10.8)
[2021-08-23 06:17] LABS: Albumin 1.9 g/dL (3.4-5.0); Calcium 7.7 mg/dL (8.5-10.1); Magnesium 2.8 mg/dL (1.6-2.6); Potassium 4.5 mmol/L (3.5-5.1)
[2021-08-23 06:19] LABS: BUN/Creatinine Ratio 34.6
[2021-08-23 06:21] LABS: Bilirubin, Total 0.3 mg/dL (0.2-1.0); Phosphorus 2.9 mg/dL (2.5-4.90)
[2021-08-23] MEDS: VANCOMYCIN 1GM/250ML 250 ML IV SCH ×2 (08:00→19:00)
[2021-08-23 09:00] VITALS: BP 120/67
[2021-08-23] MEDS: PANTOPRAZOLE 40 MG/10 ML VIAL INJ IV SCH (10:17)
[2021-08-23] MEDS: FLUCONAZOLE 200MG/100ML 100 ML IV SCH (10:18)
[2021-08-23] MEDS: ENOXAPARIN SOD 100 MG/1 ML SYRINGE SC SCH ×2 (10:18→21:54)
[2021-08-23] MEDS: HYDROmorphone HCL 2 MG/ML VL/or syr IV PRN ×2 (10:19→20:04)
[2021-08-23 13:00] VITALS: BP 155/76
[2021-08-23 17:00] VITALS: BP 145/72
[2021-08-23] MEDS ORDERED: PPN PER PHARMACY IV NR ×8 (20:00)
[2021-08-23 21:48] VITALS: BP 131/65
[2021-08-24] MEDS: ACCU-CHEK COMFORT CURVE STRIP VI SCH ×5 (00:23→23:41)
[2021-08-24] MEDS: InsuLIN REG 1unit/0.01ml Soln (100units/ml) SC SCH ×5 (00:34→23:42)
[2021-08-24] MEDS: MEROPENEM 1GM IVPB 100 ML IV SCH ×3 (02:58→18:52)
[2021-08-24 03:19] LABS: BUN/Creatinine Ratio 34.5; Calcium 7.9 mg/dL (8.5-10.1); Magnesium 2.7 mg/dL (1.6-2.6); Phosphorus 2.9 mg/dL (2.5-4.90); Potassium 4.3 mmol/L (3.5-5.1)
[2021-08-24] MEDS: VANCOMYCIN 1GM/250ML 250 ML IV SCH ×3 (04:58→23:41)
[2021-08-24 05:00] VITALS: BP 136/79
[2021-08-24 09:00] VITALS: BP 154/81
[2021-08-24] MEDS: FLUCONAZOLE 200MG/100ML 100 ML IV SCH (09:36)
[2021-08-24] MEDS: ENOXAPARIN SOD 100 MG/1 ML SYRINGE SC SCH ×2 (09:36→21:16)
[2021-08-24] MEDS: PANTOPRAZOLE 40 MG/10 ML VIAL INJ IV SCH (09:36)
[2021-08-24 13:00] VITALS: BP 140/70
[2021-08-24 17:00] VITALS: BP 141/68
[2021-08-24] MEDS ORDERED: PPN PER PHARMACY IV NR ×9 (20:00)
[2021-08-24] MEDS: HYDROmorphone HCL 2 MG/ML VL/or syr IV PRN (21:25)
[2021-08-24 22:00] VITALS: BP 140/70
[2021-08-25] MEDS: MEROPENEM 1GM IVPB 100 ML IV SCH ×2 (01:16→10:00)
[2021-08-25 05:00] VITALS: BP 134/64
[2021-08-25] MEDS: ACCU-CHEK COMFORT CURVE STRIP VI SCH ×3 (05:45→18:15)
[2021-08-25] MEDS: InsuLIN REG 1unit/0.01ml Soln (100units/ml) SC SCH ×3 (05:45→18:00)
[2021-08-25 07:37] LABS: Basophils # (auto) 0.1 10 ^3/uL (0-0.2); Hemoglobin 10.7 g/dL (12.2-16.2); Lymphocytes # (auto) 1.5 10 ^3/uL (0.4-5.4); Mean Corpuscular Volume 85.5 fL (80.0-100.0); Nucleated Red Blood Cells % 0.1 %
[2021-08-25 07:42] LABS: Basophils % (auto) 0.7 % (0.0-2.0); Eosinophils # (auto) 0.3 10 ^3/uL (0-0.8); Eosinophils % (auto) 3.1 % (0.0-7.0); Hematocrit 32.8 % (36.0-46.0); Lymphocytes % (auto) 13.9 % (10.0-50.0); Mean Corpuscular Hemoglobin 27.8 pg (28.0-32.0); Mean Corpuscular Hgb Conc. 32.5 g/dL (32.0-36.0); Monocytes # (auto) 0.8 10 ^3/uL (0-1.3); Monocytes % (auto) 7.5 % (0.0-12.0); Neutrophils # (auto) 7.9 10 ^3/uL (1.6-8.6); Neutrophils % (auto) 74.8 % (37.0-80.0); Red Blood Cells 3.84 10^6/uL (4.0-5.20); Red Cell Distribution Width 15.4 % (11.8-14.3); White Blood Cell 10.5 10^3/uL (4.4-10.8)
[2021-08-25 07:46] LABS: Albumin 2.1 g/dL (3.4-5.0); BUN/Creatinine Ratio 37.3; Magnesium 2.3 mg/dL (1.6-2.6); Potassium 4.1 mmol/L (3.5-5.1)
[2021-08-25 07:50] LABS: Bilirubin, Total 0.4 mg/dL (0.2-1.0); Phosphorus 3.2 mg/dL (2.5-4.90); Total Protein 6.4 g/dL (6.4-8.2)
[2021-08-25 08:00] VITALS: BP 135/69
[2021-08-25] MEDS: ENOXAPARIN SOD 100 MG/1 ML SYRINGE SC SCH ×2 (09:38→21:23)
[2021-08-25] MEDS: FLUCONAZOLE 200MG/100ML 100 ML IV SCH ×2 (09:38→10:00)
[2021-08-25] MEDS: PANTOPRAZOLE 40 MG/10 ML VIAL INJ IV SCH ×2 (09:38→10:00)
[2021-08-25] MEDS: VANCOMYCIN 1GM/250ML 250 ML IV SCH ×2 (09:39→19:57)
[2021-08-25 12:00] VITALS: BP 155/61
[2021-08-25 16:00] VITALS: BP 139/73
[2021-08-25 18:12] LABS: INR 1.21 (0.9-1.15); Partial Thromboplastin Time 28.5 sec (23.6-33.0)
[2021-08-25] MEDS ORDERED: LIDOCAINE 1% (LOCAL ANESTH.) PF 5ml SDV ID ONE (19:45)
[2021-08-25] MEDS: HYDROmorphone HCL 2 MG/ML VL/or syr IV PRN (19:57)
[2021-08-25] MEDS ORDERED: PPN PER PHARMACY IV NR ×10 (20:00)
[2021-08-25] MEDS: SODIUM CHLOR 0.9% PF (SALINE LOCK) 10ML VIAL/SYR IV SCH (21:23)
[2021-08-25 22:00] VITALS: BP 136/68
[2021-08-26] MEDS: ACCU-CHEK COMFORT CURVE STRIP VI SCH ×4 (00:05→17:36)
[2021-08-26] MEDS: InsuLIN REG 1unit/0.01ml Soln (100units/ml) SC SCH ×5 (00:11→17:43)
[2021-08-26 05:00] VITALS: BP 131/69
[2021-08-26 06:32] LABS: Basophils # (auto) 0 10 ^3/uL (0-0.2); Eosinophils # (auto) 0.5 10 ^3/uL (0-0.8); Monocytes # (auto) 0.6 10 ^3/uL (0-1.3)
[2021-08-26 06:35] LABS: Basophils % (auto) 0.5 % (0.0-2.0); Hematocrit 31.8 % (36.0-46.0); Hemoglobin 10.6 g/dL (12.2-16.2); Lymphocytes # (auto) 1.2 10 ^3/uL (0.4-5.4); Lymphocytes % (auto) 12.1 % (10.0-50.0); Mean Corpuscular Hemoglobin 28.5 pg (28.0-32.0); Mean Corpuscular Hgb Conc. 33.2 g/dL (32.0-36.0); Mean Corpuscular Volume 85.7 fL (80.0-100.0); Monocytes % (auto) 6.6 % (0.0-12.0); Neutrophils # (auto) 7.5 10 ^3/uL (1.6-8.6); Neutrophils % (auto) 75.8 % (37.0-80.0); Red Blood Cells 3.71 10^6/uL (4.0-5.20); Red Cell Distribution Width 15.3 % (11.8-14.3); White Blood Cell 9.9 10^3/uL (4.4-10.8)
[2021-08-26 06:42] LABS: INR 1.21 (0.9-1.15)
[2021-08-26 06:46] LABS: Calcium 8.5 mg/dL (8.5-10.1); Magnesium 2.4 mg/dL (1.6-2.6); Potassium 4.3 mmol/L (3.5-5.1)
[2021-08-26 06:52] LABS: BUN/Creatinine Ratio 39.3; Bilirubin, Total 0.6 mg/dL (0.2-1.0); Phosphorus 3.4 mg/dL (2.5-4.90); Total Protein 6.6 g/dL (6.4-8.2)
[2021-08-26] MEDS: ENOXAPARIN SOD 100 MG/1 ML SYRINGE SC SCH ×2 (08:56→21:26)
[2021-08-26] MEDS: SODIUM CHLOR 0.9% PF (SALINE LOCK) 10ML VIAL/SYR IV SCH ×2 (08:56→21:26)
[2021-08-26] MEDS: PANTOPRAZOLE 40 MG/10 ML VIAL INJ IV SCH (08:57)
[2021-08-26] MEDS: levoFLOXacin 500MG 100 ML IV SCH (08:57)
[2021-08-26 09:00] VITALS: BP 129/65
[2021-08-26] MEDS: FLUCONAZOLE 200MG/100ML 100 ML IV SCH (10:02)
[2021-08-26 13:00] VITALS: BP 157/70
[2021-08-26] MEDS: HYDROmorphone HCL 2 MG/ML VL/or syr IV PRN ×2 (14:07→20:55)
[2021-08-26] MEDS: VANCOMYCIN 1GM/250ML 250 ML IV SCH (16:24)
[2021-08-26 17:00] VITALS: BP 133/67
[2021-08-26] MEDS ORDERED: TPN PER PHARMACY IV NR ×9 (20:00)
[2021-08-26 22:13] VITALS: BP 128/65
[2021-08-27] MEDS: ACCU-CHEK COMFORT CURVE STRIP VI SCH ×5 (00:17→23:32)
[2021-08-27] MEDS: InsuLIN REG 1unit/0.01ml Soln (100units/ml) SC SCH ×5 (00:18→23:15)
[2021-08-27 05:00] VITALS: BP 140/69
[2021-08-27 09:00] VITALS: BP 106/50
[2021-08-27 09:08] LABS: Basophils # (auto) 0.1 10 ^3/uL (0-0.2); Eosinophils # (auto) 0.4 10 ^3/uL (0-0.8); Hemoglobin 11.2 g/dL (12.2-16.2); Mean Corpuscular Hgb Conc. 32.3 g/dL (32.0-36.0); Monocytes # (auto) 0.6 10 ^3/uL (0-1.3); Nucleated Red Blood Cells % 0.1 %; White Blood Cell 8.3 10^3/uL (4.4-10.8)
[2021-08-27 09:10] LABS: Eosinophils % (auto) 5.2 % (0.0-7.0); Hematocrit 34.8 % (36.0-46.0); Lymphocytes # (auto) 1.5 10 ^3/uL (0.4-5.4); Lymphocytes % (auto) 17.8 % (10.0-50.0); Mean Corpuscular Hemoglobin 28.3 pg (28.0-32.0); Mean Corpuscular Volume 87.5 fL (80.0-100.0); Monocytes % (auto) 7.2 % (0.0-12.0); Neutrophils # (auto) 5.7 10 ^3/uL (1.6-8.6); Neutrophils % (auto) 68.8 % (37.0-80.0); Red Blood Cells 3.97 10^6/uL (4.0-5.20); Red Cell Distribution Width 15.6 % (11.8-14.3)
[2021-08-27] MEDS: FLUCONAZOLE 200MG/100ML 100 ML IV SCH (09:34)
[2021-08-27] MEDS: SODIUM CHLOR 0.9% PF (SALINE LOCK) 10ML VIAL/SYR IV SCH ×2 (09:34→22:00)
[2021-08-27] MEDS: PANTOPRAZOLE 40 MG/10 ML VIAL INJ IV SCH (09:35)
[2021-08-27] MEDS: ENOXAPARIN SOD 100 MG/1 ML SYRINGE SC SCH ×2 (09:35→20:34)
[2021-08-27] MEDS: HYDROmorphone HCL 2 MG/ML VL/or syr IV PRN ×3 (09:36→20:35)
[2021-08-27] MEDS: ONDANSETRON HCL 4 MG/2 ML VIAL IV PRN ×3 (09:36→20:34)
[2021-08-27 09:41] LABS: Albumin 2.3 g/dL (3.4-5.0); Calcium 8.2 mg/dL (8.5-10.1); Magnesium 2.7 mg/dL (1.6-2.6); Potassium 3.6 mmol/L (3.5-5.1)
[2021-08-27 09:46] LABS: BUN/Creatinine Ratio 35.3; Bilirubin, Total 0.2 mg/dL (0.2-1.0); Phosphorus 2.4 mg/dL (2.5-4.90); Total Protein 7.2 g/dL (6.4-8.2)
[2021-08-27] MEDS: levoFLOXacin 500MG 100 ML IV SCH (10:56)
[2021-08-27] MEDS ORDERED: SODIUM PHOSPHATES 24 MEQ in SODIUM CHL 0.9% 100 ML IV ONE (12:00)
[2021-08-27 13:00] VITALS: BP 106/65
[2021-08-27 16:58] VITALS: BP 110/60
[2021-08-27] MEDS: VANCOMYCIN 1GM/250ML 250 ML IV SCH (18:06)
[2021-08-27] MEDS ORDERED: TPN PER PHARMACY IV NR ×9 (20:00)
[2021-08-28 05:14] VITALS: BP 120/67
[2021-08-28] MEDS: HYDROmorphone HCL 2 MG/ML VL/or syr IV PRN ×3 (06:03→20:44)
[2021-08-28] MEDS: ONDANSETRON HCL 4 MG/2 ML VIAL IV PRN ×3 (06:03→20:44)
[2021-08-28] MEDS: InsuLIN REG 1unit/0.01ml Soln (100units/ml) SC SCH (06:15)
[2021-08-28] MEDS: ACCU-CHEK COMFORT CURVE STRIP VI SCH (06:15)
[2021-08-28 06:49] LABS: Albumin 2.3 g/dL (3.4-5.0); Potassium 3.8 mmol/L (3.5-5.1)
[2021-08-28 06:55] LABS: BUN/Creatinine Ratio 33.3; Bilirubin, Total 0.2 mg/dL (0.2-1.0); Calcium 8.3 mg/dL (8.5-10.1); Magnesium 2.3 mg/dL (1.6-2.6); Phosphorus 2.8 mg/dL (2.5-4.90); Total Protein 6.8 g/dL (6.4-8.2)
[2021-08-28 06:57] LABS: Basophils # (auto) 0.1 10 ^3/uL (0-0.2); Eosinophils # (auto) 0.4 10 ^3/uL (0-0.8); Monocytes # (auto) 0.7 10 ^3/uL (0-1.3)
[2021-08-28 07:00] LABS: Eosinophils % (auto) 4.9 % (0.0-7.0); Hematocrit 31.3 % (36.0-46.0); Hemoglobin 10.6 g/dL (12.2-16.2); Lymphocytes # (auto) 1.2 10 ^3/uL (0.4-5.4); Lymphocytes % (auto) 15.9 % (10.0-50.0); Mean Corpuscular Hemoglobin 28.8 pg (28.0-32.0); Mean Corpuscular Hgb Conc. 33.8 g/dL (32.0-36.0); Mean Corpuscular Volume 85.1 fL (80.0-100.0); Monocytes % (auto) 9.4 % (0.0-12.0); Neutrophils # (auto) 5.4 10 ^3/uL (1.6-8.6); Neutrophils % (auto) 68.8 % (37.0-80.0); Nucleated Red Blood Cells % 0.2 %; Red Blood Cells 3.68 10^6/uL (4.0-5.20); Red Cell Distribution Width 15.4 % (11.8-14.3); White Blood Cell 7.8 10^3/uL (4.4-10.8)
[2021-08-28 09:00] VITALS: BP 139/72
[2021-08-28] MEDS: PANTOPRAZOLE 40 MG/10 ML VIAL INJ IV SCH (10:30)
[2021-08-28] MEDS: ENOXAPARIN SOD 100 MG/1 ML SYRINGE SC SCH ×2 (10:30→20:45)
[2021-08-28] MEDS: FLUCONAZOLE 200MG/100ML 100 ML IV SCH (10:31)
[2021-08-28] MEDS: levoFLOXacin 500MG 100 ML IV SCH (10:31)
[2021-08-28] MEDS: SODIUM CHLOR 0.9% PF (SALINE LOCK) 10ML VIAL/SYR IV SCH ×2 (10:57→20:45)
[2021-08-28 13:00] VITALS: BP 133/69
[2021-08-28] MEDS: VANCOMYCIN 1GM/250ML 250 ML IV SCH (16:36)
[2021-08-28 17:00] VITALS: BP 120/68
[2021-08-28] MEDS: Ensure HIGH Protein Chocolate 8oz Bottle PO SCH ×2 (17:23→18:00)
[2021-08-28 22:00] VITALS: BP 132/70
[2021-08-29] MEDS: HYDROmorphone HCL 2 MG/ML VL/or syr IV PRN ×4 (03:42→19:55)
[2021-08-29] MEDS: ONDANSETRON HCL 4 MG/2 ML VIAL IV PRN ×4 (03:42→19:55)
[2021-08-29] MEDS ORDERED: VANCOMYCIN 1GM/250ML 250 ML IV ONE (04:00)
[2021-08-29 05:00] VITALS: BP 130/71
[2021-08-29] MEDS: Ensure HIGH Protein Chocolate 8oz Bottle PO SCH ×3 (08:00→18:03)
[2021-08-29 09:00] VITALS: BP 125/65
[2021-08-29] MEDS: PANTOPRAZOLE 40 MG/10 ML VIAL INJ IV SCH (09:30)
[2021-08-29] MEDS: ENOXAPARIN SOD 100 MG/1 ML SYRINGE SC SCH (09:30)
[2021-08-29] MEDS: FLUCONAZOLE 200MG/100ML 100 ML IV SCH (09:31)
[2021-08-29] MEDS: levoFLOXacin 500MG 100 ML IV SCH (09:31)
[2021-08-29] MEDS: SODIUM CHLOR 0.9% PF (SALINE LOCK) 10ML VIAL/SYR IV SCH ×2 (10:00→21:36)
[2021-08-29 13:00] VITALS: BP 126/61
[2021-08-29 17:00] VITALS: BP 145/68
[2021-08-29] MEDS: VANCOMYCIN 1GM/250ML 250 ML IV SCH (17:30)
[2021-08-29] MEDS: APIXABAN 5 MG TAB PO SCH (21:37)
[2021-08-29 22:00] VITALS: BP 123/58
[2021-08-30] MEDS: ONDANSETRON HCL 4 MG/2 ML VIAL IV PRN ×2 (02:42→18:53)
[2021-08-30] MEDS: HYDROmorphone HCL 2 MG/ML VL/or syr IV PRN ×4 (02:43→18:13)
[2021-08-30] MEDS: VANCOMYCIN 1GM/250ML 250 ML IV SCH (04:55)
[2021-08-30 05:00] VITALS: BP 139/71
[2021-08-30 08:00] VITALS: BP 145/77
[2021-08-30] MEDS: Ensure HIGH Protein Chocolate 8oz Bottle PO SCH ×3 (08:00→16:25)
[2021-08-30] MEDS ORDERED: levoFLOXacin 500MG 100 ML IV SCH (09:00)
[2021-08-30] MEDS: hydrALAZINE HCL 20 MG/ML VL IV PRN (09:04)
[2021-08-30] MEDS: PANTOPRAZOLE 40 MG/10 ML VIAL INJ IV SCH (09:04)
[2021-08-30] MEDS: FLUCONAZOLE 200MG/100ML 100 ML IV SCH (09:04)
[2021-08-30] MEDS: APIXABAN 5 MG TAB PO SCH ×2 (09:06→21:53)
[2021-08-30 09:08] VITALS: BP 154/70
[2021-08-30 09:29] LABS: Basophils # (auto) 0.1 10 ^3/uL (0-0.2); Eosinophils # (auto) 0.4 10 ^3/uL (0-0.8); Eosinophils % (auto) 7.7 % (0.0-7.0); Hematocrit 31.7 % (36.0-46.0); Hemoglobin 10.6 g/dL (12.2-16.2); Lymphocytes % (auto) 20.2 % (10.0-50.0); Mean Corpuscular Hemoglobin 28.4 pg (28.0-32.0); Mean Corpuscular Hgb Conc. 33.5 g/dL (32.0-36.0); Mean Corpuscular Volume 84.8 fL (80.0-100.0); Monocytes # (auto) 0.5 10 ^3/uL (0-1.3); Monocytes % (auto) 10.3 % (0.0-12.0); Neutrophils % (auto) 60.8 % (37.0-80.0); Nucleated Red Blood Cells % 0.1 %; Red Blood Cells 3.74 10^6/uL (4.0-5.20); Red Cell Distribution Width 15.4 % (11.8-14.3); White Blood Cell 4.9 10^3/uL (4.4-10.8)
[2021-08-30] MEDS: SODIUM CHLOR 0.9% PF (SALINE LOCK) 10ML VIAL/SYR IV SCH ×2 (10:00→21:52)
[2021-08-30 10:07] LABS: Potassium 4.3 mmol/L (3.5-5.1)
[2021-08-30 10:08] LABS: BUN/Creatinine Ratio 21.3; Calcium 8.6 mg/dL (8.5-10.1)
[2021-08-30 13:00] VITALS: BP 135/79
[2021-08-30 17:00] VITALS: BP 137/77
[2021-08-30 22:03] VITALS: BP 132/60
[2021-08-31] VITALS (7 sets, daily range): BP systolic 125–162; BP diastolic 68–80
[2021-08-31] MEDS: ONDANSETRON HCL 4 MG/2 ML VIAL IV PRN ×3 (02:38→17:52)
[2021-08-31] MEDS: HYDROmorphone HCL 2 MG/ML VL/or syr IV PRN ×3 (02:39→17:52)
[2021-08-31] MEDS: Ensure HIGH Protein Chocolate 8oz Bottle PO SCH ×3 (08:00→14:15)
[2021-08-31 08:39] LABS: Albumin 2.4 g/dL (3.4-5.0); Calcium 8.7 mg/dL (8.5-10.1); Potassium 4.2 mmol/L (3.5-5.1)
[2021-08-31 08:41] LABS: BUN/Creatinine Ratio 20.3; Bilirubin, Total 0.2 mg/dL (0.2-1.0); Total Protein 7.2 g/dL (6.4-8.2)
[2021-08-31 08:46] LABS: Basophils # (auto) 0.1 10 ^3/uL (0-0.2); Eosinophils # (auto) 0.4 10 ^3/uL (0-0.8); Eosinophils % (auto) 7.3 % (0.0-7.0); Hemoglobin 9.8 g/dL (12.2-16.2); Lymphocytes # (auto) 1.5 10 ^3/uL (0.4-5.4); Lymphocytes % (auto) 28.3 % (10.0-50.0); Mean Corpuscular Hemoglobin 28.3 pg (28.0-32.0); Mean Corpuscular Hgb Conc. 33.8 g/dL (32.0-36.0); Mean Corpuscular Volume 83.7 fL (80.0-100.0); Monocytes # (auto) 0.5 10 ^3/uL (0-1.3); Monocytes % (auto) 10.1 % (0.0-12.0); Neutrophils # (auto) 2.9 10 ^3/uL (1.6-8.6); Neutrophils % (auto) 53.3 % (37.0-80.0); Nucleated Red Blood Cells % 0.1 %; Red Blood Cells 3.46 10^6/uL (4.0-5.20); Red Cell Distribution Width 15.3 % (11.8-14.3); White Blood Cell 5.4 10^3/uL (4.4-10.8)
[2021-08-31] MEDS: SODIUM CHLOR 0.9% PF (SALINE LOCK) 10ML VIAL/SYR IV SCH ×2 (10:00→22:55)
[2021-08-31] MEDS: PANTOPRAZOLE 40 MG/10 ML VIAL INJ IV SCH (10:05)
[2021-08-31] MEDS: APIXABAN 5 MG TAB PO SCH ×2 (10:07→22:55)
[2021-08-31] MEDS: hydrALAZINE HCL 20 MG/ML VL IV PRN (10:13)
[2021-08-31] MEDS: TRIAMCINOLONE ACET 0.1% TOPICAL CREAM 15GM TOP SCH (11:30)
[2021-08-31] MEDS: amLODIPine BESYLATE 5 MG TAB PO SCH (17:53)
[2021-09-01] MEDS: ONDANSETRON HCL 4 MG/2 ML VIAL IV PRN (01:30)
[2021-09-01] MEDS: HYDROmorphone HCL 2 MG/ML VL/or syr IV PRN ×2 (01:30→09:43)
[2021-09-01 04:58] VITALS: BP 127/66
[2021-09-01 07:17] LABS: Basophils # (auto) 0 10 ^3/uL (0-0.2); Basophils % (auto) 0.9 % (0.0-2.0); Eosinophils # (auto) 0.3 10 ^3/uL (0-0.8); Eosinophils % (auto) 6.1 % (0.0-7.0); Hematocrit 33.5 % (36.0-46.0); Lymphocytes # (auto) 1.8 10 ^3/uL (0.4-5.4); Lymphocytes % (auto) 34.4 % (10.0-50.0); Mean Corpuscular Hemoglobin 27.8 pg (28.0-32.0); Mean Corpuscular Hgb Conc. 32.7 g/dL (32.0-36.0); Monocytes # (auto) 0.5 10 ^3/uL (0-1.3); Monocytes % (auto) 10.7 % (0.0-12.0); Neutrophils # (auto) 2.4 10 ^3/uL (1.6-8.6); Neutrophils % (auto) 47.9 % (37.0-80.0); Nucleated Red Blood Cells % 0.1 %; Red Blood Cells 3.94 10^6/uL (4.0-5.20); Red Cell Distribution Width 15.6 % (11.8-14.3); White Blood Cell 5.1 10^3/uL (4.4-10.8)
[2021-09-01 07:23] LABS: Albumin 2.4 g/dL (3.4-5.0); Calcium 8.7 mg/dL (8.5-10.1); Potassium 4.3 mmol/L (3.5-5.1)
[2021-09-01 07:25] LABS: Bilirubin, Total 0.5 mg/dL (0.2-1.0); Total Protein 6.9 g/dL (6.4-8.2)
[2021-09-01 08:00] VITALS: BP 146/74
[2021-09-01] MEDS: Ensure HIGH Protein Chocolate 8oz Bottle PO SCH ×3 (08:00→18:30)
[2021-09-01] MEDS: PANTOPRAZOLE 40 MG/10 ML VIAL INJ IV SCH (09:41)
[2021-09-01] MEDS: amLODIPine BESYLATE 5 MG TAB PO SCH (09:41)
[2021-09-01] MEDS: SODIUM CHLOR 0.9% PF (SALINE LOCK) 10ML VIAL/SYR IV SCH ×2 (09:41→21:52)
[2021-09-01] MEDS: TRIAMCINOLONE ACET 0.1% TOPICAL CREAM 15GM TOP SCH (09:41)
[2021-09-01] MEDS: APIXABAN 5 MG TAB PO SCH ×2 (09:41→21:52)
[2021-09-01] MEDS ORDERED: levoFLOXacin 500 MG TAB PO ONE (10:30)
[2021-09-01 13:00] VITALS: BP 146/79
[2021-09-01 16:00] VITALS: BP 133/68
[2021-09-01] MEDS: HYDROcodone-ACET 5/325MG TAB PO PRN (20:54)
[2021-09-01 22:00] VITALS: BP 118/62
[2021-09-02] MEDS: HYDROcodone-ACET 5/325MG TAB PO PRN (04:14)
[2021-09-02 05:00] VITALS: BP 154/82
[2021-09-02] MEDS: hydrALAZINE HCL 20 MG/ML VL IV PRN (05:22)
[2021-09-02] MEDS: Ensure HIGH Protein Chocolate 8oz Bottle PO SCH ×2 (08:00→12:00)
[2021-09-02 08:47] VITALS: BP 136/75
[2021-09-02] MEDS: APIXABAN 5 MG TAB PO SCH (09:28)
[2021-09-02] MEDS: SODIUM CHLOR 0.9% PF (SALINE LOCK) 10ML VIAL/SYR IV SCH (09:28)
[2021-09-02] MEDS: amLODIPine BESYLATE 5 MG TAB PO SCH (09:29)
[2021-09-02] MEDS: LACTULOSE 20Gm/30ML SOLN PO PRN (09:30)
[2021-09-02] MEDS: TRIAMCINOLONE ACET 0.1% TOPICAL CREAM 15GM TOP SCH (09:30)
[2021-09-02] MEDS ORDERED: PANTOPRAZOLE 40 MG TAB PO SCH (10:00)
[2021-09-02] MEDS ORDERED: levoFLOXacin 500 MG TAB PO SCH (10:00)
[2021-09-02 13:00] VITALS: BP 142/85
== END 2021-09-02 17:46 | disposition home or self-care (01) | DRG 871 ==
LOC: EDBD 07:05 → ER 07:05 → TELE 10:14 → UNDODISIN 13:40 → TELE-CENTR 14:27 → CENTRAL 08-13 14:30 → TELE-CENTR 08-14 17:10 → CENTRAL 08-20 11:30 → ICU WEST 08-21 10:28 → TELE-WESTW 08-22 23:39
PROVIDERS: ADMIT Hospitalist; ATTEND Internal Medicine
PROC: 05HF33Z Insertion of Infusion Device into Left Cephalic Vein, Percutaneous Approach (ICD-10-PCS; principal; 2021-08-12)
PROC: B54NZZA Ultrasonography of Left Upper Extremity Veins, Guidance (ICD-10-PCS; 2021-08-12)
PROC: 05HD33Z Insertion of Infusion Device into Right Cephalic Vein, Percutaneous Approach (ICD-10-PCS; 2021-08-18)
PROC: B54MZZA Ultrasonography of Right Upper Extremity Veins, Guidance (ICD-10-PCS; 2021-08-18)
DX: A41.1 Sepsis due to other specified staphylococcus (principal); K85.80 Other acute pancreatitis without necrosis or infection; G92.8 Other toxic encephalopathy; N39.0 Urinary tract infection, site not specified; Q78.2 Osteopetrosis; I82.622 Acute embolism and thrombosis of deep veins of left upper extremity; I12.9 Hypertensive chronic kidney disease with stage 1 through stage 4 chronic kidney disease, or unspecified chronic kidney disease; E66.01 Morbid (severe) obesity due to excess calories; E78.5 Hyperlipidemia, unspecified; N18.31 Chronic kidney disease, stage 3a; D64.9 Anemia, unspecified; K81.9 Cholecystitis, unspecified; I25.10 Atherosclerotic heart disease of native coronary artery without angina pectoris; I27.9 Pulmonary heart disease, unspecified; K21.9 Gastro-esophageal reflux disease without esophagitis; Z20.822 Contact with and (suspected) exposure to COVID-19; K57.30 Diverticulosis of large intestine without perforation or abscess without bleeding; K59.00 Constipation, unspecified; J44.9 Chronic obstructive pulmonary disease, unspecified; M54.50 Low back pain, unspecified; K76.0 Fatty (change of) liver, not elsewhere classified; E87.6 Hypokalemia; M81.0 Age-related osteoporosis without current pathological fracture; Z79.01 Long term (current) use of anticoagulants; Z79.899 Other long term (current) drug therapy; Z85.038 Personal history of other malignant neoplasm of large intestine
CPT/HCPCS: 36415; 36569; 36600; 71045; 74177; 76705; 80048; 80053; 80061; 80069; 80202; 81001; 82150; 82805; 82962; 83605; 83690; 83735; 83880; 84100; 84478; 84484; 85007; 85025; 85027; 85379; 85610; 85730; 87040; 87077; 87081; 87086; 87186; 87493; 93005; 93306; 93971; 96361; 96374; 96375; 97110; 97116; 97163; 97530; C9113; G0378; J1450; J1815; J1956; J2185; J2405; J2543; J3480; J3490; J7060; J7131

== ENCOUNTER 2024-08-30 09:53 | Inpatient (IN) | payer MEDICARE, OTHER ==
[~2024-08-30] VITALS: Ht 172.7 cm; Wt 94.4 kg
[~2024-08-30 09:53] MED LIST: HYDR1TAB97; SIMV20TA20 PO; TRAZ1TAB12 PO
--- NOTE | 2024-08-30 10:10 | ECG ---
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
--- NOTE | 2024-08-30 10:42 | ED.PDOC ---
GI ASSESSMENT HPI Comments 79y F who presents to the ED for chief complaint of abdominal pain. - pt states she has been having LUQ abdominal pain for the past 2 weeks getting progressively worse over the past 3 days. -pt states the pain is constant, non-radiating, with no associated exacerbating or relieving factors - pt has associated muscle muscle spasms but otherwise nausea, vomiting, diarrhea, fever, cough, or chills - pt states since wednesday, 3 days prior, he has also been having pain to the R TMJ with associated pain opening and closing of the jaw - pt otherwise denies any other symptoms at this time. PMH: arthritis, HLD, colon cancer PSH: hysterectomy, colon cancer surgery Meds: norco Allergies: morphine social history: denies ETOH use, denies tobacco use, denies drug use BETO CHAVIRA: HPI: Poor Historian. Denies any fall or trauma or injury. Past Medical History: Past Surgical History: REVIEW OF SYSTEMS: CONSTITUTIONAL: Denies acute: fever, diaphoresis, chills, generalized weakness. HEAD: Denies acute: headache, photophobia Eyes: Denies acute: Double vision, vision loss, eye pain, eye discharge. EARS: Denies acute: tinnitus, hearing loss, ear discharge, ear pain, THROAT: Denies acute: sore throat, swelling, difficulty swallowing , pain with swallowing, change in voice. NECK: Denies acute: neck pain, neck swelling, stiff neck. HEART: Denies acute : chest pain, palpitations, LUNGS: Denies acute: SOB, wheezing, cough, hemoptysis ABDOMEN: Denies acute: Nausea, Vomiting, diarrhea, melena , hematemesis, hematochezia SKIN: Denies acute: rash, redness, lesions, itchiness. EXTREMITIES: Denies acute: calf pain, numbness, tingling, weakness, denies pain in extremity. Denies acute: Low back pain. Neuro: Denies acute: focal neurological deficit, motor or sensory focal neurological deficit, tremors, seizure like activity, confusion, dizziness, change in mental status, loss of bowel or bladder function, cauda equina like symptoms. : Denies acute: dysuria, hematuria, flank pain, increase in urinary frequency. PSYCH: Denies acute: hallucination, suicidal ideation, homicidal ideation. FEMALE: Denies acute: abnormal vaginal bleeding, foul odor, unusual discharge. PHYSICAL EXAM: General: ----mild to moderate----acute distress, awake and alert. Head: normocephalic, atraumatic. Neck: supple, trachea is midline, no swelling. Throat: Normal phonation. Evaluation of the right TMJ. Patient is able to open and close her mouth fully with normal range of motion. She has some minimal right TMJ pain with opening of the mouth. There is no ear pain. No appreciated swelling or erythema in the area of pain. Patient states that her pain has significantly improved since onset. Eyes:, no erythema, no purulent discharge, no proptosis, no icterus. Heart: regular rate, regular rhythm, no significant murmur appreciated. Lungs: no apparent respiratory distress, Able to speak in full sentences. No wheezing, no rhonchi, no crackles. No stridors Clear to auscultation bilaterally. Abdomen: Left upper quadrant tender to palpation, non distended, soft, no guarding, no rebound, + bowel sounds.. No rashes or lesions to suggest shingles in the area of complaint. Neuro: Awake, Alert, oriented to name, self, situation, follows commands GCS=15. Speech is normal. Skin: no petechia, no purpura, no cyanosis, non-pale, not jaundice. Lower extremities: --trace bilateral- Pitting edema no deformity, no focal swelling, no calf TTP. Makes eye contact. moves all four extremities. Face: no apparent facial droop. Ambulating in the ED independently. 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 Was a procedure done?: No GI differential Dx Differential Diagnosis: Other (DDX include Diverticulitis, colitis, gastroe nteritis, acute abdomen, SBO, enteritis, constipation, volvulus, appendicitis, Gallbladder disease, choledocolithiasis, ascending cholangitis, pancreatitis, intraAbdominal mass/neoplasm, hepatitis, UTI, pylonephritis, kidney stone, aneurysm, dissection, Inflammatory bowel disease, gastroparesis, ischemic bowel, ) X-Ray, Labs, Meds, VS Vital Signs Date Time Temp Pulse Resp B/P (MAP) Pulse Ox O2 Delivery O2 Flow Rate FiO2 08/30/24 16:00 72 13 112/51 (71) 95 08/30/24 16:00 74 08/30/24 15:00 78 14 114/58 (76) 94 08/30/24 14:00 80 12 145/81 (102) 99 08/30/24 13:40 Room Air* 0 21 08/30/24 13:40 97.3 87 13 146/70 (95) 97 97.3 08/30/24 10:02 97.7 119 16 137/86 (103) 96 97.7 Lab Test 08/30/24 14:06 08/30/24 12:06 08/30/24 10:41 08/30/24 10:30 Range/Units Lactic Acid Level 1.0 2.5 *H 0.4-2.0 mmol/L Troponin I High Sensitivity 4 < 3 L 3 L </=34 ng/L White Blood Count 10.3 4.4-10.8 10^3/uL Red Blood Count 5.18 4.0-5.20 10^6/uL Hemoglobin 13.8 12.2-16.2 g/dL Hematocrit 41.8 36.0-46.0 % Mean Corpuscular Volume 80.7 80.0-100.0 fL Mean Corpuscular Hemoglobin 26.7 L 28.0-32.0 pg Mean Corpuscular Hemoglobin Concent 33.1 32.0-36.0 g/dL Red Cell Distribution Width 15.7 H 11.8-14.3 % Platelet Count 315 140-450 10^3/uL Mean Platelet Volume 8.9 6.9-10.8 fL Neutrophils (%) (Auto) 68.9 37.0-80.0 % Lymphocytes (%) (Auto) 24.7 10.0-50.0 % Monocytes (%) (Auto) 4.4 0.0-12.0 % Eosinophils (%) (Auto) 1.2 0.0-7.0 % Basophils (%) (Auto) 0.8 0.0-2.0 % Neutrophils # (Auto) 7.1 1.6-8.6 10 ^3/uL Lymphocytes # (Auto) 2.6 0.4-5.4 10 ^3/uL Monocytes # (Auto) 0.5 0-1.3 10 ^3/uL Eosinophils # (Auto) 0.1 0-0.8 10 ^3/uL Basophils # (Auto) 0.1 0-0.2 10 ^3/uL Nucleated Red Blood Cells 0.1 % Sodium Level 136 136-145 mmol/L Potassium Level 4.3 3.5-5.1 mmol/L Chloride Level 105 98-107 mmol/L Carbon Dioxide Level 23 20-31 mmol/L Anion Gap 8 5-15 Blood Urea Nitrogen 15 9-23 mg/dL Creatinine 1.24 H 0.550-1.02 mg/dL Glomerular Filtration Rate Calc 44 >90 mL/min BUN/Creatinine Ratio 12.1 10.0-20.0 Serum Glucose 104 74-106 mg/dL Calcium Level 9.3 8.7-10.4 mg/dL Total Bilirubin 0.3 0.2-1.0 mg/dL Aspartate Amino Transferase (AST) < 8 L 13-40 U/L Alanine Aminotransferase (ALT) < 9 7-40 U/L Alkaline Phosphatase 98 46-116 U/L Total Protein 8.0 5.7-8.2 g/dL Albumin 4.9 H 3.2-4.8 g/dL Amylase Level 88 30-118 U/L Lipase 70 H 12-53 U/L Urine Color Light-yellow Yellow Urine Clarity Clear Clear Urine pH 6.5 5.0-9.0 Urine Specific [place] 1.017 1.001-1.035 Urine Protein Negative Negative Urine Ketones Negative Negative Urine Blood Negative Negative /uL Urine Nitrite Negative Negative Urine Bilirubin Negative Negative Urine Urobilinogen Normal Negative mg/dL Urine Leukocyte Esterase Trace Negative /uL Urine RBC <1 0 - 4 /hpf Urine Microscopic WBC 2 0-5 /HPF Urine Squamous Epithelial Cells Few <5 /hpf Urine Bacteria None seen None Seen /hpf Urine Hyaline Casts Few 0 - 2 /lpf Urine Mucus Few None Seen Urine Glucose Normal Normal mg/dL Current Medications Medications (Trade) Dose Ordered Sig/Isaiah Route Start Time Stop Time Status Last Admin Piperacillin Sod/ Tazobactam Sod 100 ml @ 100 mls/hr ONCE ONCE IV 08/30/24 11:45 08/30/24 12:44 DC 08/30/24 13:59 Sodium Chloride 1,000 ml @ 1,000 mls/hr Q1H ONCE IV 08/30/24 11:45 08/30/24 12:44 DC 08/30/24 13:25 Acetaminophen/ Hydrocodone Bitart ([place] 10/325MG Tab) 1 tab ONCE ONCE PO 08/30/24 13:30 08/30/24 13:41 DC 08/30/24 13:55 Sodium Chloride 1,000 ml @ 1,000 mls/hr Q1H ONCE IV 08/30/24 14:00 08/30/24 15:05 DC 08/30/24 13:35 Sodium Chloride 1,000 ml @ 125 mls/hr Q8H IV 08/30/24 14:00 08/30/24 21:01 [place] [id number] Ph: [phone] DIAGNOSTIC IMAGING Diagnostic Imaging Report : [id number] Signed PATIENT: BETO ALMONTE ACCT: [id number] UNIT: [id number] : 1945 LOC: ER ROOM / BED: / AGE / SEX: 79 / F ADM STATUS: REG ER SERVICE 1026 ORDERING PHYSICIAN: TRACY KENNEDY DO PROCEDURE(s): ABPL - CT AB PEL WO CON-NO ORAL OR IV REASON: LUQ pain ORDER NUMBER(s): [id number], ACCESSION NUMBER(s): [id number] CLINICAL INFORMATION: Left upper quadrant pain. TECHNIQUE: Axial CT images of the abdomen and pelvis were obtained without IV co ntrast. Coronal and sagittal reformatted images were obtained, reviewed, and stored. Evaluation of the parenchymal organs is limited without IV contrast. Evaluation of the bowel and mesentery is limited without oral contrast. All CT scans at this medical facility are performed using dose modulation techniques as appropriate to a performed exam including the following: Automated exposure control was utilized; adjustment of the MA and/or KV according to patient size; and use of iterative reconstruction technique. CTDIvol = 19.24 mGy DLP = 1033.56 mGy-cm COMPARISON: Prior CT of the abdomen and pelvis dated 08/12/2021. FINDINGS: Lung bases: Mild atelectasis in the lung bases. Liver: Grossly unremarkable in its noncontrast enhanced appearance. No abnormal density or focal lesion identified. Biliary: No calcified gallstones. Spleen: There is stranding and fluid adjacent to the anterior aspect of the spleen and splenic hilum as well as adjacent to the pancreatic tail, poorly delineated from the pancreatic tail or splenic hilum. More focal area of complex fluid and stranding measures up to 3.9 x 6.5 x 4.2 cm. Pancreas: Stranding and complex fluid adjacent to the pancreatic tail and portions of the spleen. Adrenal glands: Unremarkable. No mass. Kidneys: No hydronephrosis. No renal or ureteral calculi. Small exophytic cyst of the posterior aspect of the right kidney. Aorta/Vascular: Moderate atherosclerotic calcification. No abdominal aortic aneurysm. Retroperitoneum: No mass or lymphadenopathy. Bowel/mesentery: No small bowel obstruction. No free air or free fluid. Appendix is not visualized. Scattered colonic diverticula without adjacent inflammatory changes to suggest diverticulitis. Pelvic organs: Grossly unremarkable. Bladder: Unremarkable. No mass. Abdominal wall: Moderate sized supraumbilical ventral hernia containing fat and measuring up to 12.3 cm in greatest dimension. Fat containing hernia along the right lateral abdominal wall measures up to 6.5 cm. Bones: No acute fracture or suspicious intraosseous lesion. IMPRESSION: 1. Stranding and fluid adjacent to the pancreatic tail, splenic hilum, anterior to the spleen, likely due to acute pancreatitis given the patient's history of pancreatitis focal collection measuring up to 6.5 cm at the pancreatic tail is complex, not well evaluated on noncontrast enhanced exam, most likely due to complex inflammatory fluid associated with the pancreatitis. Hemorrhage not excluded in the appropriate clinical setting. Correlate with clinical findings. 2. No calcified gallstones visualized. 3. Scattered colonic diverticula without adjacent inflammatory changes to suggest diverticulitis. 4. Additional findings as described above. ATED BY: KRANTHI MCFADDEN DO DICTATED DATE/TIME: 08/30/241114 SIGNED BY: KRANTHI MCFADDEN DO SIGNED DATE/TIME: 08/30/241114 CC: [place] [id number] Ph: [phone] DIAGNOSTIC IMAGING Diagnostic Imaging Report : [id number] Signed PATIENT: BETO ALMONTE ACCT: [id number] UNIT: [id number] : 1945 LOC: ER ROOM / BED: / AGE / SEX: 79 / F ADM STATUS: REG ER SERVICE 1019 ORDERING PHYSICIAN: TRACY KENNEDY DO PROCEDURE(s): CXRP - CHEST PORTABLE REASON: cp ORDER NUMBER(s): [id number], ACCESSION NUMBER(s): [id number] CHEST RADIOGRAPH Indication: cp Technique: Single frontal view of the chest was obtained COMPARISON: CHEST XRAY 1 VIEW on DOS: 08/23/21, CXR1 on DOS: 08/23/21, CHEST PORTABLE on DOS: 08/22/21, CXRP on DOS: 08/22/21, CHEST XRAY 1 VIEW on DOS: 08/21/21 FINDINGS: Lines and Tubes: None Lungs: Clear Pleura: No effusion. No pneumothorax. Cardiomediastinal contours: Unremarkable Bones: Unremarkable IMPRESSION: 1. No acute disease. ATED BY: JENNIFER LAUREN MD DICTATED DATE/TIME: 08/30/24 105 SIGNED BY: JENNIFER LAUREN MD SIGNED DATE/TIME: 08/30/241051 CC: Time of 1ST Reevaluation: 00:00 Reevaluation 1ST: Patient Education/Counseling: Diagnosis, Treatment Family Education/Counseling: No Family Present Comments Patient presented with the above HPI.---abdominal---workup was initiated. patient was found with the above mentioned diagnosis. the following medications were ordered: please refer to order lists of meds and tests obtained by myself Dr. Kennedy. Patient ED course and VS have been stabilized. Patient has been reassessed in the ED and remained in a stable condition. Pertinent incidental findings were discussed with the patient and/or family. Patient/family voices understanding and is agreeable with plan. Patient has been observed in the ED adequate length of time to insure improvement/stability. Escalation of care considered: Consideration of escalation to observation or admission Patient was ADMITTED to the medicine team for further evaluation and treatment of their presentation. All the reports of any imaging studies that were ordered by myself were reviewed by myself. Departure 1 Departure Time of Disposition: 12:30 Impression: Primary Impression: Acute pancreatitis Disposition: ADMITTED INPATIENT Admit to: Tele Condition: Guarded Discharged With: Self Critical Care Note Critical Care Time?: Yes (45 min-critical care time only) I personally scribed for TRACY KENNEDY DO ([email or web address]) on 08/30/24 at 10:42. Electronically submitted by Ronald Moore ([email or web address]). I personally scribed for TRACY KENNEDY DO ([email or web address]) on 08/30/24 at 10:55. Electronically submitted by Ronald Moore ([email or web address]). I personally scribed for TRACY KENNEDY DO ([email or web address]) on 08/30/24 at 11:15. Electronically submitted by Ronald Moore (MARCIE). I personally scribed for TRACY KENNEDY DO ([email or web address]) on 08/30/24 at 20:59. Electronically submitted by Ronald Moore (MARCIE). TRACY KENNEDY DO August 30, 2024 10:42
[2024-08-30 10:55] LABS: Urine Bacteria None Seen /hpf (None Seen)
--- NOTE | 2024-08-30 10:55 | DVH ---
CHEST RADIOGRAPH Indication: cp Technique: Single frontal view of the chest was obtained COMPARISON: CHEST XRAY 1 VIEW on DOS: 08/23/21, CXR1 on DOS: 08/23/21, CHEST PORTABLE on DOS: 08/22/21, CXRP on DOS: 08/22/21, CHEST XRAY 1 VIEW on DOS: 08/21/21 FINDINGS: Lines and Tubes: None Lungs: Clear Pleura: No effusion. No pneumothorax. Cardiomediastinal contours: Unremarkable Bones: Unremarkable IMPRESSION: 1. No acute disease.
[2024-08-30 10:59] LABS: Basophils # (auto) 0.1 10 ^3/uL (0-0.2); Mean Corpuscular Hemoglobin 26.7 pg (28.0-32.0); Monocytes # (auto) 0.5 10 ^3/uL (0-1.3); Nucleated Red Blood Cells % 0.1 %
[2024-08-30 11:01] LABS: Basophils % (auto) 0.8 % (0.0-2.0); Eosinophils # (auto) 0.1 10 ^3/uL (0-0.8); Eosinophils % (auto) 1.2 % (0.0-7.0); Hematocrit 41.8 % (36.0-46.0); Hemoglobin 13.8 g/dL (12.2-16.2); Lymphocytes # (auto) 2.6 10 ^3/uL (0.4-5.4); Lymphocytes % (auto) 24.7 % (10.0-50.0); Mean Corpuscular Hgb Conc. 33.1 g/dL (32.0-36.0); Mean Corpuscular Volume 80.7 fL (80.0-100.0); Monocytes % (auto) 4.4 % (0.0-12.0); Neutrophils # (auto) 7.1 10 ^3/uL (1.6-8.6); Neutrophils % (auto) 68.9 % (37.0-80.0); Platelet Count (auto) 315 10^3/uL (140-450); Red Blood Cells 5.18 10^6/uL (4.0-5.20); Red Cell Distribution Width 15.7 % (11.8-14.3); White Blood Cell 10.3 10^3/uL (4.4-10.8)
[2024-08-30 11:04] LABS: Urine Blood Negative /uL (Negative); Urine Clarity Clear (Clear); Urine Color Light-Yellow (Yellow); Urine Hyaline Cast FEW /lpf (0 - 2); Urine Mucus FEW (None Seen); Urine Protein, UAD Negative (Negative); Urine Specific Gravity 1.017 (1.001-1.035); Urine Squamous Epithelial Cell FEW /hpf (<5); Urine Urobilinogen Normal (Negative); Urine WBC 2 /HPF (0-5); Urine pH 6.5 (5.0-9.0)
[2024-08-30 11:15] LABS: Alkaline Phosphatase 98 U/L (46-116); Anion Gap 8 (5-15); BUN/Creatinine Ratio 12.1 (10.0-20.0); Blood Urea Nitrogen 15 mg/dL (9-23); Calcium 9.3 mg/dL (8.7-10.4); Carbon Dioxide 23 mmol/L (20-31); Chloride 105 mmol/L (98-107); Glucose 104 mg/dL (74-106); Potassium 4.3 mmol/L (3.5-5.1)
[2024-08-30 11:16] LABS: Bilirubin, Total 0.3 mg/dL (0.2-1.0)
[2024-08-30 11:17] LABS: Alanine Aminotransferase < 9 U/L (7-40); Albumin 4.9 g/dL (3.2-4.8); Aspartate Aminotransferase < 8 U/L (13-40); Lipase 70 U/L (12-53); Sodium 136 mmol/L (136-145)
--- NOTE | 2024-08-30 11:18 | DVH ---
CLINICAL INFORMATION: Left upper quadrant pain. TECHNIQUE: Axial CT images of the abdomen and pelvis were obtained without IV contrast. Coronal and s agittal reformatted images were obtained, reviewed, and stored. Evaluation of the parenchymal organs is limited without IV contrast. Evaluation of the bowel and mesentery is limited without oral contras t. All CT scans at this medical facility are performed using dose modulation techniques as appropriat e to a performed exam including the following: Automated exposure control was utilized; adjustment of the MA and/or KV according to patient size; and use of iterative reconstruction technique. CTDIvol = 19.24 mGy DLP = 1033.56 mGy-cm COMPARISON: Prior CT of the abdomen and pelvis dated 08/12/2021. FINDINGS: Lung bases: Mild atelectasis in the lung bases. Liver: Grossly unremarkable in its noncontrast enhanced appearance. No abnormal density or focal lesi on identified. Biliary: No calcified gallstones. Spleen: There is stranding and fluid adjacent to the anterior aspect of the spleen and splenic hilum as well as adjacent to the pancreatic tail, poorly delineated from the pancreatic tail or splenic hil um. More focal area of complex fluid and stranding measures up to 3.9 x 6.5 x 4.2 cm. Pancreas: Stranding and complex fluid adjacent to the pancreatic tail and portions of the spleen. Adrenal glands: Unremarkable. No mass. Kidneys: No hydronephrosis. No renal or ureteral calculi. Small exophytic cyst of the posterior aspec t of the right kidney. Aorta/Vascular: Moderate atherosclerotic calcification. No abdominal aortic aneurysm. Retroperitoneum: No mass or lymphadenopathy. Bowel/mesentery: No small bowel obstruction. No free air or free fluid. Appendix is not visualized. S cattered colonic diverticula without adjacent inflammatory changes to suggest diverticulitis. Pelvic organs: Grossly unremarkable. Bladder: Unremarkable. No mass. Abdominal wall: Moderate sized supraumbilical ventral hernia containing fat and measuring up to 12.3 cm in greatest dimension. Fat containing hernia along the right lateral abdominal wall measures up to 6.5 cm. Bones: No acute fracture or suspicious intraosseous lesion. IMPRESSION: 1. Stranding and fluid adjacent to the pancreatic tail, splenic hilum, anterior to the spleen, likely due to acute pancreatitis given the patient's history of pancreatitis focal collection measuring up to 6.5 cm at the pancreatic tail is complex, not well evaluated on noncontrast enhanced exam, most li raissa due to complex inflammatory fluid associated with the pancreatitis. Hemorrhage not excluded in t he appropriate clinical setting. Correlate with clinical findings. 2. No calcified gallstones visualized. 3. Scattered colonic diverticula without adjacent inflammatory changes to suggest diverticulitis. 4. Additional findings as described above.
[2024-08-30 11:27] LABS: Lactic Acid w/Reflex 2.5 mmol/L (0.4-2.0)
[2024-08-30] MEDS: SODIUM CHLORIDE 0.9% 1,000 ML IV ONE ×2 (13:25→13:35)
[2024-08-30] MEDS: HYDROcodone-ACET 10/325MG TAB PO ONE (13:55)
[2024-08-30] MEDS: PIPERACILLIN-TAZOB 3.375GM 100 ML IV ONE (13:59)
[2024-08-30] MEDS ORDERED: ACETAMINOPHEN 325 MG TAB PO PRN (14:00)
[2024-08-30] MEDS: SODIUM CHLORIDE 0.9% 1,000 ML IV SCH ×2 (14:00→17:20)
[2024-08-30] MEDS ORDERED: ONDANSETRON HCL 4 MG/2 ML VIAL IV PRN (14:00)
[2024-08-30] MEDS ORDERED: HYDROcodone-ACET 10/325MG TAB PO PRN (14:00)
--- NOTE | 2024-08-30 14:17 | DVHHP2 ---
History of Present Illness Reason for Visit: Abdominal pain History of Present Illness Maria Fernanda Mayo is a 79-year-old female with past medical history of hyperlipidemia, and arthritis, who came in with complaints of abdominal pain. Patient states the pain began about 2 days ago, and has worsened. Patient states she has a history of pancreatitis about 3 years ago and this feels similar, prompting her to come to the hospital. Cardiovascular: hyperipidemia Musculoskeletal: Osteoarthritis Past Surgical History: Hysterectomy, Other (Colon resection) Smoke: No ALCOHOL: none Drugs: None Lives: Friends Domestic Violence: Neg Review of Systems Constitutional: No: Fever, Chills, Sweats, Weakness, Malaise, Other Eyes: No: Pain, Vision change, Conjunctivae inflammation, Eyelid inflammation, Other, Redness ENT: No: Ear pain, Ear discharge, Nose pain, Nose discharge, Nose congestion, Mouth pain, Mouth swelling, Throat pain, Throat swelling, Other Respiratory: No: Cough, Dry, Shortness of breath, SOB with excertion, Wheezing, Hemoptysis, Pleuritic Pain, Sputum, Wheezing, Other Cardiovascular: No: Chest Pain, Palpitations, Orthopnea, Paroxysmal Noc. Dyspnea, Edema, Lt Headedness, Other Gastrointestinal: Abdominal Pain; No: Nausea, Vomiting, Diarrhea, Constipation, Melena, Hematochezia, Other Genitourinary: No Dysuria, No Frequency, No Incontinence, No Hematuria, No Retention, No Other Musculoskeletal: No: other, neck pain, shoulder pain, arm pain, back pain, hand pain, leg pain, foot pain Skin: No: Rash, Lesions, Jaundice, Bruising, Other Neurological: No: Weakness, Numbness, Incoordination, Change in speech, Confusion, Seizures, Other Allergies: Coded Allergies: Morphine (Verified Allergy, Unknown, 08/08/21) Medications Current Medications Medications Dose Ordered Sig/Isaiah Route Start Time Stop Time Status Last Admin Dose Admin Ondansetron HCl 4 mg Q4HP PRN IV 08/30/24 14:00 UNV Acetaminophen 650 mg Q6HP PRN PO 08/30/24 14:00 UNV Sodium Chloride 1,000 ml @ 125 mls/hr Q8H IV 08/30/24 14:00 UNV Atorvastatin Calcium 20 mg HS PO 08/30/24 22:00 UNV Acetaminophen/ Hydrocodone Bitart 1 tab Q6HP PRN PO 08/30/24 14:00 UNV Exam Vital Signs Vital Signs Date Time Temp Pulse Resp B/P (MAP) Pulse Ox O2 Delivery O2 Flow Rate FiO2 08/30/24 13:40 Room Air* 0 21 08/30/24 13:40 97.3 87 13 146/70 (95) 97 97.3 Labs/Xrays Labs Test 08/30/24 12:06 08/30/24 10:41 08/30/24 10:30 Range/Units Troponin I High Sensitivity < 3 L </=34 ng/L White Blood Count 10.3 4.4-10.8 10^3/uL Red Blood Count 5.18 4.0-5.20 10^6/uL Hemoglobin 13.8 12.2-16.2 g/dL Hematocrit 41.8 36.0-46.0 % Mean Corpuscular Volume 80.7 80.0-100.0 fL Mean Corpuscular Hemoglobin 26.7 L 28.0-32.0 pg Mean Corpuscular Hemoglobin Concent 33.1 32.0-36.0 g/dL Red Cell Distribution Width 15.7 H 11.8-14.3 % Platelet Count 315 140-450 10^3/uL Mean Platelet Volume 8.9 6.9-10.8 fL Neutrophils (%) (Auto) 68.9 37.0-80.0 % Lymphocytes (%) (Auto) 24.7 10.0-50.0 % Monocytes (%) (Auto) 4.4 0.0-12.0 % Eosinophils (%) (Auto) 1.2 0.0-7.0 % Basophils (%) (Auto) 0.8 0.0-2.0 % Neutrophils # (Auto) 7.1 1.6-8.6 10 ^3/uL Lymphocytes # (Auto) 2.6 0.4-5.4 10 ^3/uL Monocytes # (Auto) 0.5 0-1.3 10 ^3/uL Eosinophils # (Auto) 0.1 0-0.8 10 ^3/uL Basophils # (Auto) 0.1 0-0.2 10 ^3/uL Nucleated Red Blood Cells 0.1 % Sodium Level 136 136-145 mmol/L Potassium Level 4.3 3.5-5.1 mmol/L Chloride Level 105 98-107 mmol/L Carbon Dioxide Level 23 20-31 mmol/L Anion Gap 8 5-15 Blood Urea Nitrogen 15 9-23 mg/dL Creatinine 1.24 H 0.550-1.02 mg/dL Glomerular Filtration Rate Calc 44 >90 mL/min BUN/Creatinine Ratio 12.1 10.0-20.0 Serum Glucose 104 74-106 mg/dL Lactic Acid Level 2.5 *H 0.4-2.0 mmol/L Calcium Level 9.3 8.7-10.4 mg/dL Total Bilirubin 0.3 0.2-1.0 mg/dL Aspartate Amino Transferase (AST) < 8 L 13-40 U/L Alanine Aminotransferase (ALT) < 9 7-40 U/L Alkaline Phosphatase 98 46-116 U/L Total Protein 8.0 5.7-8.2 g/dL Albumin 4.9 H 3.2-4.8 g/dL Lipase 70 H 12-53 U/L Urine Color Light-yellow Yellow Urine Clarity Clear Clear Urine pH 6.5 5.0-9.0 Urine Specific [place] 1.017 1.001-1.035 Urine Protein Negative Negative Urine Ketones Negative Negative Urine Blood Negative Negative /uL Urine Nitrite Negative Negative Urine Bilirubin Negative Negative Urine Urobilinogen Normal Negative mg/dL Urine Leukocyte Esterase Trace Negative /uL Urine RBC <1 0 - 4 /hpf Urine Microscopic WBC 2 0-5 /HPF Urine Squamous Epithelial Cells Few <5 /hpf Urine Bacteria None seen None Seen /hpf Urine Hyaline Casts Few 0 - 2 /lpf Urine Mucus Few None Seen Urine Glucose Normal Normal mg/dL CHEST RADIOGRAPH FINDINGS: Lines and Tubes: None Lungs: Clear Pleura: No effusion. No pneumothorax. Cardiomediastinal contours: Unremarkable Bones: Unremarkable IMPRESSION: 1. No acute disease. CT images of the abdomen and pelvis were obtained without IV contrast. FINDINGS: Lung bases: Mild atelectasis in the lung bases. Liver: Grossly unremarkable in its noncontrast enhanced appearance. No abnormal density or focal lesion identified. Biliary: No calcified gallstones. Spleen: There is stranding and fluid adjacent to the anterior aspect of the spleen and splenic hilum as well as adjacent to the pancreatic tail, poorly delineated from the pancreatic tail or splenic hilum. More focal area of complex fluid and stranding measures up to 3.9 x 6.5 x 4.2 cm. Pancreas: Stranding and complex fluid adjacent to the pancreatic tail and portions of the spleen. Adrenal glands: Unremarkable. No mass. Kidneys: No hydronephrosis. No renal or ureteral calculi. Small exophytic cyst of the posterior aspect of the right kidney. Aorta/Vascular: Moderate atherosclerotic calcification. No abdominal aortic aneurysm. Retroperitoneum: No mass or lymphadenopathy. Bowel/mesentery: No small bowel obstruction. No free air or free fluid. Appendix is not visualized. Scattered colonic diverticula without adjacent inflammatory changes to suggest diverticulitis. Pelvic organs: Grossly unremarkable. Bladder: Unremarkable. No mass. Abdominal wall: Moderate sized supraumbilical ventral hernia containing fat and measuring up to 12.3 cm in greatest dimension. Fat containing hernia along the right lateral abdominal wall measures up to 6.5 cm. Bones: No acute fracture or suspicious intraosseous lesion. IMPRESSION: 1. Stranding and fluid adjacent to the pancreatic tail, splenic hilum, anterior to the spleen, likely due to acute pancreatitis given the patient's history of pancreatitis focal collection measuring up to 6.5 cm at the pancreatic tail is complex, not well evaluated on noncontrast enhanced exam, most likely due to complex inflammatory fluid associated with the pancreatitis. Hemorrhage not excluded in the appropriate clinical setting. Correlate with clinical findings. 2. No calcified gallstones visualized. 3. Scattered colonic diverticula without adjacent inflammatory changes to suggest diverticulitis. 4. Additional findings as described above. Assessment/Plan Assessment/Plan Assessment: Acute pancreatitis, Lactic acidosis, Hyperlipidemia, Plan: Admit to Med-Surg, Surgical consult, IV hydration, Pain management, NPO except ice chips, Home medications reconciled, Plan discussed with: Patient My Orders Orders - FRANKLYN MURPHY Procedure Category Date Status Time Admit ADMIT 08/30/24 Transmitted 13:55 Code Status CODE 08/30/24 Transmitted 13:55 Ondansetron Hcl PHA 08/30/24 Transmitted (Zofran) 14:00 Complete Blood Count LAB 08/31/24 Verified 04:00 Comprehensive LAB 08/31/24 Verified Metabolic Panel 04:00 Acetaminophen Tablet PHA 08/30/24 Transmitted (Tylenol Tablet) 14:00 Npo Except Ice Chips BUCKY 08/30/24 In Process 13:55 Npo (Nothing By DIET 08/30/24 Transmitted Mouth) Diet Dinner NS PHA 08/30/24 Transmitted 14:00 NS PHA 08/30/24 Transmitted 14:00 Atorvastatin (Lipitor) PHA 08/30/24 Transmitted 22:00 Amylase LAB 08/30/24 Logged 13:55 Amylase LAB 08/31/24 Verified 04:00 Hydrocodone-Acet PHA 08/30/24 Transmitted 10/325mg Tab ([place] 14:00 Lactic Acid W/ Reflex LAB 08/30/24 Transmitted Order 13:59 Date of Service: August 30, 2024 Billing Provider: FRANKLYN MURPHY Common Visit Codes: [id number] INP/OBS CARE (MOD) FRANKLYN MURPHY August 30, 2024 14:17
[2024-08-30] MEDS ORDERED: MORPHINE SULFATE INJ 2 MG/ml SYRG IV PRN (16:45)
--- NOTE | 2024-08-30 16:47 | DVHHP2 ---
Admitting Diagnosis: Abdominal pain History of Present Illness 79 yo female patient with hx of HLD, colon cancer, and arthritis c/o constant LUQ abdominal pain x 2 weeks that worsened x 3 days. While in the emergency department the patient was evaluated by the provider, As per provider: Labs, vital signs, and imagining monitored. Patient will be admitted for further evaluation and treatment. I discussed admission with the patient/family and is in agreement to treatment plan. Allergies: Coded Allergies: Morphine (Verified Allergy, Unknown, 08/08/21) Home Meds Reported Medications Hydrocodone-Acetaminophen (Hydrocodone/Acetaminophen 7.5-325 mg) 1 Tab Tab, 1 TAB PO Q8HR 08/30/24 Simvastatin (Simvastatin) 20 Mg Tab, 1 TAB PO 08/08/21 Current Medications Current Medications Medications (Trade) Dose Ordered Sig/Isaiah Route PRN Reason Start Time Stop Time Status Last Admin Enoxaparin Sodium (Lovenox) 40 mg DAILY SC 08/31/24 10:00 08/31/24 09:37 Hydromorphone HCl (Dilaudid Injection) 1 mg Q4HPRN PRN IV SEVERE PAIN (7-10 PAIN SCALE) 08/31/24 10:30 08/31/24 18:36 Pantoprazole Sodium (Protonix) 40 mg DAILY IV 08/31/24 11:00 08/31/24 11:26 Review of Systems Constitutional: denies chills, denies fever, denies malaise Eyes: denies eye pain, denies vision change ENT: denies ear pain, denies headache, denies nasal congestion, denies painful swallowing, denies voice change Cardiovascular: denies chest pain, denies edema, denies orthopnea, denies palpitations, denies paroxysmal nocturnal dyspnea Respiratory: denies cough, denies shortness of breath Gastrointestinal: denies constipation, denies diarrhea, denies nausea, denies vomiting Genitourinary: denies dysuria, denies frequent urination, denies urethral discharge Musculoskeletal: denies back pain, denies joint pain, denies muscle pain Skin: denies bruising, denies itching, denies rash Neurological: denies focal weakness, denies headache, denies sensory changes Psychiatric: denies anxiety, denies depression Endocrine: denies polydipsia, denies polyuria Hematologic/Lymphatic: denies easy bleeding, denies easy bruising, denies enlarged lymph nodes Allergic/Immunologic: denies allergy, denies hives Vital Signs Vital Signs Date Time Temp Pulse Resp B/P (MAP) Pulse Ox O2 Delivery O2 Flow Rate FiO2 08/31/24 21:00 98.0 98 15 152/88 (109) 94 98.0 08/31/24 08:00 Room Air* 0 21 Physical Exam General Appearance: alert, no distress HEENT: EOMI, PERRLA, normal external inspect of ears, no icterus, no nasal migdalia inage Neck: no carotid bruit, no jugular venous distention (JVD), no lymphadenopathy Chest: normal thorax Respiratory: clear to auscultation, normal air movement Cardiovascular: regular rate and rhythm, no diastolic murmur, no jugular venous distention (JVD), no rub, no systolic murmur Abdominal: soft, no hepatomegaly, no mass, no splenomegaly, no tenderness Genitourinary: grossly normal external Musculoskeletal: no joint tenderness, no swelling Extremities: normal pulses, no calf tenderness, no clubbing, no cyanosis, no edema Skin: no bruising, no jaundice, no rash Neurological: alert, No focal deficit Results Labs Test 08/31/24 12:09 08/31/24 06:54 08/30/24 14:06 08/30/24 10:41 Range/Units White Blood Count 5.7 # 4.4-10.8 10^3/uL Red Blood Count 4.67 4.0-5.20 10^6/uL Hemoglobin 12.5 12.2-16.2 g/dL Hematocrit 37.9 36.0-46.0 % Mean Corpuscular Volume 81.1 80.0-100.0 fL Mean Corpuscular Hemoglobin 26.7 L 28.0-32.0 pg Mean Corpuscular Hemoglobin Concent 32.9 32.0-36.0 g/dL Red Cell Distribution Width 15.5 H 11.8-14.3 % Platelet Count 163 140-450 10^3/uL Mean Platelet Volume 9.4 6.9-10.8 fL Neutrophils (%) (Auto) 68.0 37.0-80.0 % Lymphocytes (%) (Auto) 23.6 10.0-50.0 % Monocytes (%) (Auto) 6.0 0.0-12.0 % Eosinophils (%) (Auto) 1.6 0.0-7.0 % Basophils (%) (Auto) 0.8 0.0-2.0 % Neutrophils # (Auto) 3.9 1.6-8.6 10 ^3/uL Lymphocytes # (Auto) 1.3 0.4-5.4 10 ^3/uL Monocytes # (Auto) 0.3 0-1.3 10 ^3/uL Eosinophils # (Auto) 0.1 0-0.8 10 ^3/uL Basophils # (Auto) 0 0-0.2 10 ^3/uL Nucleated Red Blood Cells 0.0 % Sodium Level 139 136-145 mmol/L Potassium Level 4.8 3.5-5.1 mmol/L Chloride Level 108 H 98-107 mmol/L Carbon Dioxide Level 21 20-31 mmol/L Anion Gap 10 5-15 Blood Urea Nitrogen 12 9-23 mg/dL Creatinine 0.79 # 0.550-1.02 mg/dL Glomerular Filtration Rate Calc 76 >90 mL/min BUN/Creatinine Ratio 15.2 10.0-20.0 Serum Glucose 87 74-106 mg/dL Calcium Level 9.1 8.7-10.4 mg/dL Total Bilirubin 0.4 0.2-1.0 mg/dL Aspartate Amino Transferase (AST) 15 13-40 U/L Alanine Aminotransferase (ALT) < 9 7-40 U/L Alkaline Phosphatase 95 46-116 U/L Total Protein 6.6 5.7-8.2 g/dL Albumin 4.1 3.2-4.8 g/dL Amylase Level 71 30-118 U/L Lactic Acid Level 1.0 0.4-2.0 mmol/L Troponin I High Sensitivity 4 </=34 ng/L Lipase 70 H 12-53 U/L Test 08/30/24 10:30 Range/Units Urine Color Light-yellow Yellow Urine Clarity Clear Clear Urine pH 6.5 5.0-9.0 Urine Specific [place] 1.017 1.001-1.035 Urine Protein Negative Negative Urine Ketones Negative Negative Urine Blood Negative Negative /uL Urine Nitrite Negative Negative Urine Bilirubin Negative Negative Urine Urobilinogen Normal Negative mg/dL Urine Leukocyte Esterase Trace Negative /uL Urine RBC <1 0 - 4 /hpf Urine Microscopic WBC 2 0-5 /HPF Urine Squamous Epithelial Cells Few <5 /hpf Urine Bacteria None seen None Seen /hpf Urine Hyaline Casts Few 0 - 2 /lpf Urine Mucus Few None Seen Urine Glucose Normal Normal mg/dL Plan 1. Acute pancreatitis Monitor, NPO, GI consult, IV fluids 2. Diverticulitis Monitor, obtain gallbladder ultrasound, GI consult 3. Obesity Monitor, PPI 4. Hx colon cancer Monitor, PPI 5. Benign essential HTN Monitor, IV fluids Plan discussed with: Patient, Other JOSEMANUEL MELTON [employer] August 30, 2024 16:47
[2024-08-30] MEDS: PANTOPRAZOLE 40 MG/10 ML VIAL INJ IV ONE (17:48)
[2024-08-30] MEDS ORDERED: HYDR-4069 PO (20:11)
[2024-08-30] MEDS: HYDROcodone-ACET 5/325MG TAB PO PRN (20:25)
[2024-08-30 21:00] VITALS: BP 124/77; PULSE 75; RESP 17; TEMP 98.3; O2SAT 96
[2024-08-30] MEDS: ATORVASTATIN 20 MG TAB PO SCH (21:00)
--- NOTE | 2024-08-30 23:29 | DVHINCON2 ---
Date of service: August 30, 2024 Referring Physician Mayda Bonilla Reason for Consultation Acute pancreatitis History of Present Illness 79y F who presents to the ED for chief complaint of LUQ abdominal pain for two weeks progressively getting worse for three days. pain is constant, nonradiating with no exacerbating factors. Patient had some muscle spasms and also recent right TMJ associated pain Past Medical History PMH: arthritis, HLD, colon [id number] Meds: norco Past Surgical History PSH: hysterectomy, colon cancer surgery Family History: Diabetes mellitus G8 MOTHER, FH: heart disease G8 MOTHER, Allergies: Coded Allergies: Morphine (Verified Allergy, Unknown, 08/08/21) Home Meds Reported Medications Hydrocodone-Acetaminophen (Hydrocodone/Acetaminophen 7.5-325 mg) 1 Tab Tab, 1 TAB PO Q8HR 08/30/24 Simvastatin (Simvastatin) 20 Mg Tab, 1 TAB PO 08/08/21 Current Medications Current Medications Medications (Trade) Dose Ordered Sig/Isaiah Route PRN Reason Start Time Stop Time Status Last Admin Ondansetron HCl (Zofran) 4 mg Q4HP PRN IV NAUSEA / VOMITING 08/30/24 14:00 08/30/24 14:26 DC Acetaminophen (Tylenol Tablet) 650 mg Q6HP PRN PO PAIN SCALE 1-3 OR TEMP>100.4 08/30/24 14:00 08/30/24 14:26 DC Sodium Chloride 1,000 ml @ 125 mls/hr Q8H IV 08/30/24 14:00 08/30/24 21:01 Atorvastatin Calcium (Lipitor) 20 mg HS PO 08/30/24 22:00 08/30/24 21:00 Acetaminophen/ Hydrocodone Bitart ([place] 10/325MG Tab) 1 tab Q6HP PRN PO MODERATE PAIN (4-6 PAIN SCALE) 08/30/24 14:00 08/30/24 17:42 DC Sodium Chloride 1,000 ml @ 120 mls/hr Q8H20M IV 08/30/24 16:45 08/30/24 17:20 Acetaminophen/ Hydrocodone Bitart ([place] 5/325MG Tab) 1 tab Q4HP PRN PO MODERATE PAIN (4-6 PAIN SCALE) 08/30/24 16:45 08/30/24 20:25 Ondansetron HCl (Zofran) 4 mg Q4HP PRN IV NAUSEA / VOMITING 08/30/24 16:45 Enoxaparin Sodium (Lovenox) 40 mg DAILY SC 08/31/24 10:00 Acetaminophen (Tylenol Tablet) 650 mg Q6HP PRN PO PAIN SCALE 1-3 OR TEMP>100.4 08/30/24 16:45 Morphine Sulfate 2 mg Q4HPRN PRN IV SEVERE PAIN (7-10 PAIN SCALE) 08/30/24 16:45 UNV Vital Signs Vital Signs Date Time Temp Pulse Resp B/P (MAP) Pulse Ox O2 Delivery O2 Flow Rate FiO2 08/30/24 18:00 69 14 117/59 (78) 96 08/30/24 13:40 Room Air* 0 21 08/30/24 13:40 97.3 97.3 Physical Exam Awake alert x3 hemodynamically stable Full physical examination is deferred Labs/Diagnostic Data Labs Test 08/30/24 14:06 08/30/24 10:41 08/30/24 10:30 Range/Units Lactic Acid Level 1.0 0.4-2.0 mmol/L Troponin I High Sensitivity 4 </=34 ng/L White Blood Count 10.3 4.4-10.8 10^3/uL Red Blood Count 5.18 4.0-5.20 10^6/uL Hemoglobin 13.8 12.2-16.2 g/dL Hematocrit 41.8 36.0-46.0 % Mean Corpuscular Volume 80.7 80.0-100.0 fL Mean Corpuscular Hemoglobin 26.7 L 28.0-32.0 pg Mean Corpuscular Hemoglobin Concent 33.1 32.0-36.0 g/dL Red Cell Distribution Width 15.7 H 11.8-14.3 % Platelet Count 315 140-450 10^3/uL Mean Platelet Volume 8.9 6.9-10.8 fL Neutrophils (%) (Auto) 68.9 37.0-80.0 % Lymphocytes (%) (Auto) 24.7 10.0-50.0 % Monocytes (%) (Auto) 4.4 0.0-12.0 % Eosinophils (%) (Auto) 1.2 0.0-7.0 % Basophils (%) (Auto) 0.8 0.0-2.0 % Neutrophils # (Auto) 7.1 1.6-8.6 10 ^3/uL Lymphocytes # (Auto) 2.6 0.4-5.4 10 ^3/uL Monocytes # (Auto) 0.5 0-1.3 10 ^3/uL Eosinophils # (Auto) 0.1 0-0.8 10 ^3/uL Basophils # (Auto) 0.1 0-0.2 10 ^3/uL Nucleated Red Blood Cells 0.1 % Sodium Level 136 136-145 mmol/L Potassium Level 4.3 3.5-5.1 mmol/L Chloride Level 105 98-107 mmol/L Carbon Dioxide Level 23 20-31 mmol/L Anion Gap 8 5-15 Blood Urea Nitrogen 15 9-23 mg/dL Creatinine 1.24 H 0.550-1.02 mg/dL Glomerular Filtration Rate Calc 44 >90 mL/min BUN/Creatinine Ratio 12.1 10.0-20.0 Serum Glucose 104 74-106 mg/dL Calcium Level 9.3 8.7-10.4 mg/dL Total Bilirubin 0.3 0.2-1.0 mg/dL Aspartate Amino Transferase (AST) < 8 L 13-40 U/L Alanine Aminotransferase (ALT) < 9 7-40 U/L Alkaline Phosphatase 98 46-116 U/L Total Protein 8.0 5.7-8.2 g/dL Albumin 4.9 H 3.2-4.8 g/dL Amylase Level 88 30-118 U/L Lipase 70 H 12-53 U/L Urine Color Light-yellow Yellow Urine Clarity Clear Clear Urine pH 6.5 5.0-9.0 Urine Specific [place] 1.017 1.001-1.035 Urine Protein Negative Negative Urine Ketones Negative Negative Urine Blood Negative Negative /uL Urine Nitrite Negative Negative Urine Bilirubin Negative Negative Urine Urobilinogen Normal Negative mg/dL Urine Leukocyte Esterase Trace Negative /uL Urine RBC <1 0 - 4 /hpf Urine Microscopic WBC 2 0-5 /HPF Urine Squamous Epithelial Cells Few <5 /hpf Urine Bacteria None seen None Seen /hpf Urine Hyaline Casts Few 0 - 2 /lpf Urine Mucus Few None Seen Urine Glucose Normal Normal mg/dL CT SCAN ABD PELVIS IMPRESSION: 1. Stranding and fluid adjacent to the pancreatic tail, splenic hilum, anterior to the spleen, likely due to acute pancreatitis given the patient's history of pancreatitis focal collection measuring up to 6.5 cm at the pancreatic tail is complex, not well evaluated on noncontrast enhanced exam, most likely due to complex inflammatory fluid associated with the pancreatitis. Hemorrhage not excluded in the appropriate clinical setting. Correlate with clinical findings. 2. No calcified gallstones visualized. 3. Scattered colonic diverticula without adjacent inflammatory changes to suggest diverticulitis. Problems(with codes): (1) Acute pancreatitis (2) Diverticulosis (3) Left upper quadrant abdominal pain affecting in first trimester (4) Epigastric pain Plan/Recommendation Plan IV fluid hydration Keep NPO Monitor labs; check CA 19 9 Check gallbladder ultrasound, last examined 2021 suggestive of acalculous cholecystitis Discontinue alcohol smoking Plan discussed with: Other (None) MARLENE CARRERO MD August 30, 2024 23:29
[2024-08-31] VITALS (8 sets, daily range): BP systolic 122–152; BP diastolic 62–88; PULSE 71–98; RESP 15–19; TEMP 97.4–98.8; O2SAT 94–100
[2024-08-31 07:59] LABS: Basophils # (auto) 0 10 ^3/uL (0-0.2); Basophils % (auto) 0.8 % (0.0-2.0); Eosinophils # (auto) 0.1 10 ^3/uL (0-0.8); Eosinophils % (auto) 1.6 % (0.0-7.0); Hematocrit 37.9 % (36.0-46.0); Hemoglobin 12.5 g/dL (12.2-16.2); Lymphocytes # (auto) 1.3 10 ^3/uL (0.4-5.4); Lymphocytes % (auto) 23.6 % (10.0-50.0); Mean Corpuscular Hemoglobin 26.7 pg (28.0-32.0); Mean Corpuscular Hgb Conc. 32.9 g/dL (32.0-36.0); Mean Corpuscular Volume 81.1 fL (80.0-100.0); Monocytes # (auto) 0.3 10 ^3/uL (0-1.3); Neutrophils # (auto) 3.9 10 ^3/uL (1.6-8.6); Platelet Count (auto) 163 10^3/uL (140-450); Red Blood Cells 4.67 10^6/uL (4.0-5.20); Red Cell Distribution Width 15.5 % (11.8-14.3); White Blood Cell 5.7 10^3/uL (4.4-10.8)
[2024-08-31 08:18] LABS: Alkaline Phosphatase 95 U/L (46-116); Anion Gap 10 (5-15); BUN/Creatinine Ratio 15.2 (10.0-20.0); Blood Urea Nitrogen 12 mg/dL (9-23); Calcium 9.1 mg/dL (8.7-10.4); Carbon Dioxide 21 mmol/L (20-31); Glucose 87 mg/dL (74-106); Potassium 4.8 mmol/L (3.5-5.1); Sodium 139 mmol/L (136-145); Total Protein 6.6 g/dL (5.7-8.2)
[2024-08-31 08:19] LABS: Albumin 4.1 g/dL (3.2-4.8); Aspartate Aminotransferase 15 U/L (13-40); Bilirubin, Total 0.4 mg/dL (0.2-1.0)
[2024-08-31 08:21] LABS: Alanine Aminotransferase < 9 U/L (7-40); Chloride 108 mmol/L (98-107)
[2024-08-31] MEDS: ENOXAPARIN SOD 40 MG/0.4 ML SYRINGE SC SCH (09:37)
[2024-08-31 10:08] LABS: Amylase 71 U/L (30-118)
--- NOTE | 2024-08-31 10:56 | DVHPN2 ---
Progress Note - Dictate Date Seen: August 31, 2024 Medical Necessity Reason Pt with a Central, PICC or Fol: No vital signs Vital Sign Date Time Temp Pulse Resp B/P (MAP) Pulse Ox O2 Delivery O2 Flow Rate FiO2 08/31/24 08:37 97.4 72 19 144/82 (102) 99 97.4 08/30/24 20:03 Room Air* 0 21 Total Intake and Output 08/30/24 08/30/24 08/31/24 15:00 23:00 07:00 Intake Total 1100 ml 1120 ml 100 ml Balance 1100 ml 1120 ml 100 ml medications Current Medications Medications Dose Ordered Sig/Isaiah Route Start Time Stop Time Status Last Admin Dose Admin Sodium Chloride 1,000 ml @ 125 mls/hr Q8H IV 08/30/24 14:00 08/31/24 06:03 125 MLS/HR Atorvastatin Calcium 20 mg HS PO 08/30/24 22:00 08/30/24 21:00 20 MG Acetaminophen/ Hydrocodone Bitart 1 tab Q4HP PRN PO 08/30/24 16:45 08/31/24 05:54 1 TAB Ondansetron HCl 4 mg Q4HP PRN IV 08/30/24 16:45 Enoxaparin Sodium 40 mg DAILY SC 08/31/24 10:00 08/31/24 09:37 40 MG Acetaminophen 650 mg Q6HP PRN PO 08/30/24 16:45 Morphine Sulfate 2 mg Q4HPRN PRN IV 08/30/24 16:45 UNV Hydromorphone HCl 1 mg Q4HPRN PRN IV 08/31/24 10:30 Pantoprazole Sodium 40 mg DAILY IV 08/31/24 11:00 UNV objective General Appearance: alert, no distress HEENT: EOMI, PERRLA, normal external inspect of ears, no icterus, no nasal drainage Neck: no carotid bruit, no jugular venous distention (JVD), no lymphadenopathy Chest: normal thorax Respiratory: clear to auscultation, normal air movement Cardiovascular: regular rate and rhythm, no diastolic murmur, no jugular venous distention (JVD), no rub, no systolic murmur Abdominal: soft, no hepatomegaly, no mass, no splenomegaly, no tenderness Genitourinary: grossly normal external Musculoskeletal: no joint tenderness, no swelling Extremities: normal pulses, no calf tenderness, no clubbing, no cyanosis, no edema Skin: no bruising, no jaundice, no rash Neurological: alert, No focal deficit laboratory and microbiology Laboratory Tests 08/31/24 06:54 Test 08/31/24 06:54 Range/Units Serum Glucose 87 74-106 mg/dL Problem List 1. Acute pancreatitis Monitor, NPO, GI consult, IV fluids 2. Diverticulitis Monitor, obtain gallbladder ultrasound, GI consult 3. Obesity Monitor, PPI 4. Hx colon cancer Monitor, PPI 5. Benign essential HTN Monitor, IV fluids Assessment/Plan Subjective: Patient is awake and alert. Objective: Patient is complaining of severe abdominal pain, likely due to acute pancreatitis. GI consulted. CA 19-9 pending. Patient has history of colon cancer. Gallbladder ultrasound also pending. Plan: Keep NPO, administer IV Dilaudid as needed, continue pain management, GI recommendations appreciated. Plan discussed with: Patient, Other JOSEMANUEL MELTON NP August 31, 2024 10:56
[2024-08-31] MEDS: PANTOPRAZOLE 40 MG/10 ML VIAL INJ IV SCH (11:26)
[2024-08-31] MEDS: HYDROmorphone HCL 2 MG/ML VL/or syr IV PRN (11:32)
--- NOTE | 2024-08-31 12:41 | DVH ---
INDICATION: Pain; r/o acalculus cholecystitis TECHNIQUE: Multiple real-time sonographic images were obtained of the right upper quadrant. COMPARISON: ABDL on DOS: 08/08/21 FINDINGS: The liver demonstrates homogenous echotexture without focal mass lesions. The liver measure s 15 cm. There is no intrahepatic or extrahepatic ductal dilatation. The common duct is not well vis ualized due to obscuration from bowel gas The gallbladder is without evidence of stone or sludge. The gallbladder wall measures 3 mm and is wi thin normal limits. Mild gallbladder distention The right kidney measures 10.2 cm. The right kidney is normal in contour, size, and shape. The echog enicity is normal. There is no hydronephrosis. The pancreas is not well visualized due to overlying bowel gas. IMPRESSION: Mild gallbladder distention. No shadowing gallstones
--- NOTE | 2024-08-31 14:45 | DVHINCON2 ---
Date of service: August 31, 2024 Family History: Diabetes mellitus G8 MOTHER, FH: heart disease G8 MOTHER, Allergies: Coded Allergies: Morphine (Verified Allergy, Unknown, 08/08/21) Home Meds Reported Medications Hydrocodone-Acetaminophen (Hydrocodone/Acetaminophen 7.5-325 mg) 1 Tab Tab, 1 TAB PO Q8HR 08/30/24 Simvastatin (Simvastatin) 20 Mg Tab, 1 TAB PO 08/08/21 Current Medications Current Medications Medications (Trade) Dose Ordered Sig/Isaiah Route PRN Reason Start Time Stop Time Status Last Admin Atorvastatin Calcium (Lipitor) 20 mg HS PO 08/30/24 22:00 08/30/24 21:00 Sodium Chloride 1,000 ml @ 120 mls/hr Q8H20M IV 08/30/24 16:45 08/31/24 10:28 DC 08/31/24 09:17 Acetaminophen/ Hydrocodone Bitart ([place] 5/325MG Tab) 1 tab Q4HP PRN PO MODERATE PAIN (4-6 PAIN SCALE) 08/30/24 16:45 08/31/24 05:54 Ondansetron HCl (Zofran) 4 mg Q4HP PRN IV NAUSEA / VOMITING 08/30/24 16:45 Enoxaparin Sodium (Lovenox) 40 mg DAILY SC 08/31/24 10:00 08/31/24 09:37 Acetaminophen (Tylenol Tablet) 650 mg Q6HP PRN PO PAIN SCALE 1-3 OR TEMP>100.4 08/30/24 16:45 Morphine Sulfate 2 mg Q4HPRN PRN IV SEVERE PAIN (7-10 PAIN SCALE) 08/30/24 16:45 UNV Hydromorphone HCl (Dilaudid Injection) 1 mg Q4HPRN PRN IV SEVERE PAIN (7-10 PAIN SCALE) 08/31/24 10:30 08/31/24 11:32 Pantoprazole Sodium (Protonix) 40 mg DAILY IV 08/31/24 11:00 08/31/24 11:26 Vital Signs Vital Signs Date Time Temp Pulse Resp B/P (MAP) Pulse Ox O2 Delivery O2 Flow Rate FiO2 08/31/24 13:00 98.4 88 19 136/81 (99) 96 98.4 08/30/24 20:03 Room Air* 0 21 Labs/Diagnostic Data Labs Test 08/31/24 12:09 08/31/24 06:54 08/30/24 14:06 08/30/24 10:41 Range/Units White Blood Count 5.7 # 4.4-10.8 10^3/uL Red Blood Count 4.67 4.0-5.20 10^6/uL Hemoglobin 12.5 12.2-16.2 g/dL Hematocrit 37.9 36.0-46.0 % Mean Corpuscular Volume 81.1 80.0-100.0 fL Mean Corpuscular Hemoglobin 26.7 L 28.0-32.0 pg Mean Corpuscular Hemoglobin Concent 32.9 32.0-36.0 g/dL Red Cell Distribution Width 15.5 H 11.8-14.3 % Platelet Count 163 140-450 10^3/uL Mean Platelet Volume 9.4 6.9-10.8 fL Neutrophils (%) (Auto) 68.0 37.0-80.0 % Lymphocytes (%) (Auto) 23.6 10.0-50.0 % Monocytes (%) (Auto) 6.0 0.0-12.0 % Eosinophils (%) (Auto) 1.6 0.0-7.0 % Basophils (%) (Auto) 0.8 0.0-2.0 % Neutrophils # (Auto) 3.9 1.6-8.6 10 ^3/uL Lymphocytes # (Auto) 1.3 0.4-5.4 10 ^3/uL Monocytes # (Auto) 0.3 0-1.3 10 ^3/uL Eosinophils # (Auto) 0.1 0-0.8 10 ^3/uL Basophils # (Auto) 0 0-0.2 10 ^3/uL Nucleated Red Blood Cells 0.0 % Sodium Level 139 136-145 mmol/L Potassium Level 4.8 3.5-5.1 mmol/L Chloride Level 108 H 98-107 mmol/L Carbon Dioxide Level 21 20-31 mmol/L Anion Gap 10 5-15 Blood Urea Nitrogen 12 9-23 mg/dL Creatinine 0.79 # 0.550-1.02 mg/dL Glomerular Filtration Rate Calc 76 >90 mL/min BUN/Creatinine Ratio 15.2 10.0-20.0 Serum Glucose 87 74-106 mg/dL Calcium Level 9.1 8.7-10.4 mg/dL Total Bilirubin 0.4 0.2-1.0 mg/dL Aspartate Amino Transferase (AST) 15 13-40 U/L Alanine Aminotransferase (ALT) < 9 7-40 U/L Alkaline Phosphatase 95 46-116 U/L Total Protein 6.6 5.7-8.2 g/dL Albumin 4.1 3.2-4.8 g/dL Amylase Level 71 30-118 U/L Lactic Acid Level 1.0 0.4-2.0 mmol/L Troponin I High Sensitivity 4 </=34 ng/L Lipase 70 H 12-53 U/L Test 08/30/24 10:30 Range/Units Urine Color Light-yellow Yellow Urine Clarity Clear Clear Urine pH 6.5 5.0-9.0 Urine Specific [place] 1.017 1.001-1.035 Urine Protein Negative Negative Urine Ketones Negative Negative Urine Blood Negative Negative /uL Urine Nitrite Negative Negative Urine Bilirubin Negative Negative Urine Urobilinogen Normal Negative mg/dL Urine Leukocyte Esterase Trace Negative /uL Urine RBC <1 0 - 4 /hpf Urine Microscopic WBC 2 0-5 /HPF Urine Squamous Epithelial Cells Few <5 /hpf Urine Bacteria None seen None Seen /hpf Urine Hyaline Casts Few 0 - 2 /lpf Urine Mucus Few None Seen Urine Glucose Normal Normal mg/dL Assessment [id number] AC PANCREATITIS CONSERVATIVE KEEP NPO CLOSE OBSERVATION AMYLASE LIPASE AM Plan discussed with: Patient AZAM CARRERO MD August 31, 2024 14:45
--- NOTE | 2024-08-31 21:10 | DVHINCON2 ---
DATE OF CONSULTATION: 08/31/2024 HISTORY OF PRESENT ILLNESS: A 79 years old coming into the hospital with left upper quadrant pain for 2 weeks, gotten worse and right now her pain is better. She has some nausea and vomiting. No fever or chills. No hematuria or melena. No bleeding per rectum. PAST MEDICAL HISTORY: Arthritis, HLD, colon cancer in 1995 where it was done possibly for the right colon cancer. PHYSICAL EXAMINATION: VITAL SIGNS: Afebrile, stable signs with no evidence of pallor, cyanosis or jaundice. NECK: Supple and nontender with no thyromegaly or adenopathy. CHEST AND LUNGS: Clear. HEART: Within normal limits. ABDOMEN: Soft, tender in the left upper abdomen. No rebound. EXTREMITIES: Unremarkable. NEUROLOGIC: Intact. CT scan is suggesting pancreatitis. PLAN: At this point, no acute surgical intervention is indicated. Manage her conservatively. Keep her NPO and monitor her amylase and lipase and then based upon ongoing evaluation, diet can be advanced. MD ISMAEL Gaines/DAVI TID: [id number] RECEIPT: [id number] cc: Mayda Bonilla
[2024-09-01 01:00] VITALS: BP_SYST 134; BP_SYST 140; BP_DIAS 71; PULSE 79; RESP 15; TEMP 98.3; O2SAT 92; O2SAT 94
[2024-09-01 05:00] VITALS: BP 148/87; PULSE 85; RESP 15; TEMP 98.3; O2SAT 95
[2024-09-01 08:54] VITALS: BP 151/71; PULSE 73; RESP 17; TEMP 97.5; O2SAT 97
[2024-09-01 12:30] VITALS: BP 154/80; PULSE 78; RESP 18; TEMP 97.9; O2SAT 98
[2024-09-01] MEDS: ACETAMINOPHEN 325 MG TAB PO PRN (12:31)
--- NOTE | 2024-09-01 14:02 | DVHPN2 ---
Progress Note Date Seen: September 01, 2024 Medical Necessity Reason Pt with a Central, PICC or Fol: No Objective vital signs Vital Sign Date Time Temp Pulse Resp B/P (MAP) Pulse Ox O2 Delivery O2 Flow Rate FiO2 09/01/24 12:30 97.9 78 18 154/80 (104) 98 97.9 09/01/24 08:00 Room Air* 0 21 Total Intake and Output 08/31/24 08/31/24 09/01/24 15:00 23:00 07:00 Intake Total 0 ml 100 ml Balance 0 ml 100 ml medications Current Medications Medications Dose Ordered Sig/Isaiah Route Start Time Stop Time Status Last Admin Dose Admin Sodium Chloride 1,000 ml @ 125 mls/hr Q8H IV 08/30/24 14:00 09/01/24 07:03 125 MLS/HR Atorvastatin Calcium 20 mg HS PO 08/30/24 22:00 08/31/24 21:34 20 MG Acetaminophen/ Hydrocodone Bitart 1 tab Q4HP PRN PO 08/30/24 16:45 08/31/24 05:54 1 TAB Ondansetron HCl 4 mg Q4HP PRN IV 08/30/24 16:45 Enoxaparin Sodium 40 mg DAILY SC 08/31/24 10:00 09/01/24 10:19 40 MG Acetaminophen 650 mg Q6HP PRN PO 08/30/24 16:45 09/01/24 12:31 650 MG Morphine Sulfate 2 mg Q4HPRN PRN IV 08/30/24 16:45 UNV Hydromorphone HCl 1 mg Q4HPRN PRN IV 08/31/24 10:30 09/01/24 05:41 1 MG Pantoprazole Sodium 40 mg DAILY IV 08/31/24 11:00 09/01/24 10:19 40 MG laboratory and microbiology Laboratory Tests 08/31/24 06:54 Test 08/31/24 06:54 Range/Units Serum Glucose 87 74-106 mg/dL Problem List/Assessment/Plan Problem List/Assessment/Plan AFEBRILE VSS ABD SOFT LESS TENDER LIPASE TRENDING DOWN CONTINUE CLOSE OBSERVATION ALLOW SIPS OF WATER Plan discussed with: Patient AZAM CARRERO MD September 01, 2024 14:02
[2024-09-01] MEDS: ONDANSETRON HCL 4 MG/2 ML VIAL IV PRN (15:25)
[2024-09-01 16:45] VITALS: BP 110/63; PULSE 78; RESP 18; TEMP 98.1; O2SAT 94
--- NOTE | 2024-09-01 17:45 | DVHPN2 ---
Progress Note Date Seen: September 01, 2024 Medical Necessity Reason Pt with a Central, PICC or Fol: No Objective vital signs Vital Sign Date Time Temp Pulse Resp B/P (MAP) Pulse Ox O2 Delivery O2 Flow Rate FiO2 09/01/24 16:45 98.1 78 18 110/63 (79) 94 98.1 09/01/24 08:00 Room Air* 0 21 Total Intake and Output 08/31/24 08/31/24 09/01/24 15:00 23:00 07:00 Intake Total 0 ml 100 ml Balance 0 ml 100 ml medications Current Medications Medications Dose Ordered Sig/Isaiah Route Start Time Stop Time Status Last Admin Dose Admin Sodium Chloride 1,000 ml @ 125 mls/hr Q8H IV 08/30/24 14:00 09/01/24 07:03 125 MLS/HR Atorvastatin Calcium 20 mg HS PO 08/30/24 22:00 08/31/24 21:34 20 MG Acetaminophen/ Hydrocodone Bitart 1 tab Q4HP PRN PO 08/30/24 16:45 08/31/24 05:54 1 TAB Ondansetron HCl 4 mg Q4HP PRN IV 08/30/24 16:45 09/01/24 15:25 4 MG Enoxaparin Sodium 40 mg DAILY SC 08/31/24 10:00 09/01/24 10:19 40 MG Acetaminophen 650 mg Q6HP PRN PO 08/30/24 16:45 09/01/24 12:31 650 MG Morphine Sulfate 2 mg Q4HPRN PRN IV 08/30/24 16:45 UNV Hydromorphone HCl 1 mg Q4HPRN PRN IV 08/31/24 10:30 09/01/24 15:24 1 MG Pantoprazole Sodium 40 mg DAILY IV 08/31/24 11:00 09/01/24 10:19 40 MG Examination: GENERAL:Normal, NECK:Normal, LUNGS:Normal, CVS:Normal, ABDOMEN:Normal, SKIN:Normal laboratory and microbiology Laboratory Tests 08/31/24 06:54 Test 08/31/24 06:54 Range/Units Serum Glucose 87 74-106 mg/dL Labs and/or images reviewed: Labs reviewed by me, Image(s) reviewed by me Problem List/Assessment/Plan Problem List/Assessment/Plan 1. Acute pancreatitis Monitor, NPO, GI consult, IV fluids 2. Diverticulitis Monitor, obtain gallbladder ultrasound, GI consult 3. Obesity Monitor, PPI 4. Hx colon cancer Monitor, PPI 5. Benign essential HTN Monitor, IV fluids Assessment/Plan Subjective: Patient is awake and alert. Objective: Patient is complaining of severe abdominal pain, likely due to acute pancreatitis. GI consulted. CA 19-9 pending. Patient has history of colon cancer. Gallbladder ultrasound also pending. Patient continues to report severe abdominal pain, patient is being kept NPO with slight sips of water. Plan: Keep NPO, administer IV Dilaudid as needed, continue pain management, GI recommendations appreciated. Plan discussed with: Patient Date of Service: September 01, 2024 Billing Provider: JUDY MCNEAL MD Common Visit Codes: [id number] INP/OBS CARE (MOD) GIULIANO PINA HEALTHCARE MARKETER September 01, 2024 17:45
[2024-09-01 21:00] VITALS: BP 149/82; PULSE 79; RESP 19; TEMP 98; O2SAT 96
--- NOTE | 2024-09-01 23:26 | DVHPN2 ---
Progress Note - Dictate Date Seen: September 01, 2024 Medical Necessity Reason Pt with a Central, PICC or Fol: No Subjective No new complaints Resting comfortably Lipase down to 58 vital signs Vital Sign Date Time Temp Pulse Resp B/P (MAP) Pulse Ox O2 Delivery O2 Flow Rate FiO2 09/01/24 21:00 98.0 79 19 149/82 (104) 96 98.0 09/01/24 20:00 Room Air* 0 21 Total Intake and Output 08/31/24 08/31/24 09/01/24 15:00 23:00 07:00 Intake Total 0 ml 100 ml Balance 0 ml 100 ml medications Current Medications Medications Dose Ordered Sig/Isaiah Route Start Time Stop Time Status Last Admin Dose Admin Sodium Chloride 1,000 ml @ 125 mls/hr Q8H IV 08/30/24 14:00 09/01/24 07:03 125 MLS/HR Atorvastatin Calcium 20 mg HS PO 08/30/24 22:00 09/01/24 21:24 20 MG Acetaminophen/ Hydrocodone Bitart 1 tab Q4HP PRN PO 08/30/24 16:45 08/31/24 05:54 1 TAB Ondansetron HCl 4 mg Q4HP PRN IV 08/30/24 16:45 09/01/24 15:25 4 MG Enoxaparin Sodium 40 mg DAILY SC 08/31/24 10:00 09/01/24 10:19 40 MG Acetaminophen 650 mg Q6HP PRN PO 08/30/24 16:45 09/01/24 12:31 650 MG Morphine Sulfate 2 mg Q4HPRN PRN IV 08/30/24 16:45 UNV Hydromorphone HCl 1 mg Q4HPRN PRN IV 08/31/24 10:30 09/01/24 15:24 1 MG Pantoprazole Sodium 40 mg DAILY IV 08/31/24 11:00 09/01/24 10:19 40 MG objective GENERAL:Normal, NECK:Normal, LUNGS:Normal, CVS:Normal, ABDOMEN:Normal, SKIN:Normal laboratory and microbiology Laboratory Tests 08/31/24 06:54 Test 08/31/24 06:54 Range/Units Serum Glucose 87 74-106 mg/dL Problems(with codes): (1) Epigastric pain (2) Diverticulosis (3) Acute pancreatitis (4) Ileus (5) Elevated CA 19-9 level Prognosis PLAN Pt does not have gallstones; mild gallbladder distendion However CA 19-9 is 450 suspiciuos for pancreatic cancer Recommend outpt referral for EUS with biopsy possibly Arrange MRI pancreas with contrast Plan discussed with: Patient MARLENE CARRERO MD September 01, 2024 23:26
[2024-09-02 01:00] VITALS: BP 146/87; PULSE 87; RESP 19; TEMP 97.8; O2SAT 97
[2024-09-02 05:00] VITALS: BP 133/67; PULSE 80; RESP 18; TEMP 98.2; O2SAT 94
[2024-09-02 07:56] LABS: Amylase 76 U/L (30-118)
[2024-09-02 08:01] VITALS: BP 146/77; PULSE 81; RESP 20; TEMP 97.6; O2SAT 97
[2024-09-02 08:08] LABS: Lipase 61 U/L (12-53)
[2024-09-02 11:45] VITALS: BP 138/57; PULSE 76; RESP 17; TEMP 98.1; O2SAT 97
--- NOTE | 2024-09-02 11:55 | DVHPN2 ---
Progress Note Date Seen: September 02, 2024 Medical Necessity Reason Pt with a Central, PICC or Fol: No Objective vital signs Vital Sign Date Time Temp Pulse Resp B/P (MAP) Pulse Ox O2 Delivery O2 Flow Rate FiO2 09/02/24 11:45 98.1 76 17 138/57 (84) 97 98.1 09/01/24 20:00 Room Air* 0 21 Total Intake and Output 09/01/24 09/01/24 09/02/24 15:00 23:00 07:00 Intake Total 100 ml 950 ml Balance 100 ml 950 ml medications Current Medications Medications Dose Ordered Sig/Isaiah Route Start Time Stop Time Status Last Admin Dose Admin Sodium Chloride 1,000 ml @ 125 mls/hr Q8H IV 08/30/24 14:00 09/02/24 02:00 125 MLS/HR Atorvastatin Calcium 20 mg HS PO 08/30/24 22:00 09/01/24 21:24 20 MG Acetaminophen/ Hydrocodone Bitart 1 tab Q4HP PRN PO 08/30/24 16:45 08/31/24 05:54 1 TAB Ondansetron HCl 4 mg Q4HP PRN IV 08/30/24 16:45 09/02/24 03:19 4 MG Enoxaparin Sodium 40 mg DAILY SC 08/31/24 10:00 09/02/24 09:04 40 MG Acetaminophen 650 mg Q6HP PRN PO 08/30/24 16:45 09/02/24 09:02 650 MG Morphine Sulfate 2 mg Q4HPRN PRN IV 08/30/24 16:45 UNV Hydromorphone HCl 1 mg Q4HPRN PRN IV 08/31/24 10:30 09/02/24 03:14 1 MG Pantoprazole Sodium 40 mg DAILY IV 08/31/24 11:00 09/02/24 09:02 40 MG laboratory and microbiology Laboratory Tests 08/31/24 06:54 Test 08/31/24 06:54 Range/Units Serum Glucose 87 74-106 mg/dL Problem List/Assessment/Plan Problem List/Assessment/Plan AFEBRILE VSS ABD SOFT LESS TENDER LIPASE ELEVATED CONTINUE CLOSE OBSERVATION KEEP NPO NURSE AT BEDSIDE Plan discussed with: Patient, Other AZAM CARRERO MD September 02, 2024 11:55
--- NOTE | 2024-09-02 15:14 | DVHPN2 ---
Progress Note Date Seen: September 02, 2024 Medical Necessity Reason Pt with a Central, PICC or Fol: No Objective vital signs Vital Sign Date Time Temp Pulse Resp B/P (MAP) Pulse Ox O2 Delivery O2 Flow Rate FiO2 09/02/24 14:48 75 17 135/75 09/02/24 11:45 98.1 97 98.1 09/01/24 20:00 Room Air* 0 21 Total Intake and Output 09/01/24 09/01/24 09/02/24 15:00 23:00 07:00 Intake Total 100 ml 950 ml Balance 100 ml 950 ml medications Current Medications Medications Dose Ordered Sig/Iasiah Route Start Time Stop Time Status Last Admin Dose Admin Sodium Chloride 1,000 ml @ 125 mls/hr Q8H IV 08/30/24 14:00 09/02/24 02:00 125 MLS/HR Atorvastatin Calcium 20 mg HS PO 08/30/24 22:00 09/01/24 21:24 20 MG Acetaminophen/ Hydrocodone Bitart 1 tab Q4HP PRN PO 08/30/24 16:45 08/31/24 05:54 1 TAB Ondansetron HCl 4 mg Q4HP PRN IV 08/30/24 16:45 09/02/24 03:19 4 MG Enoxaparin Sodium 40 mg DAILY SC 08/31/24 10:00 09/02/24 09:04 40 MG Acetaminophen 650 mg Q6HP PRN PO 08/30/24 16:45 09/02/24 09:02 650 MG Morphine Sulfate 2 mg Q4HPRN PRN IV 08/30/24 16:45 UNV Hydromorphone HCl 1 mg Q4HPRN PRN IV 08/31/24 10:30 09/02/24 14:48 1 MG Pantoprazole Sodium 40 mg DAILY IV 08/31/24 11:00 09/02/24 09:02 40 MG Examination: HEENT:Normal, LUNGS:Normal, CVS:Normal, ABDOMEN:Normal, SKIN:Normal, NEURO:Normal laboratory and microbiology Laboratory Tests 08/31/24 06:54 Test 08/31/24 06:54 Range/Units Serum Glucose 87 74-106 mg/dL Labs and/or images reviewed: Labs reviewed by me, Image(s) reviewed by me Problem List/Assessment/Plan Problem List/Assessment/Plan 1. Acute pancreatitis Monitor, NPO, GI consult, IV fluids 2. Diverticulitis Monitor, obtain gallbladder ultrasound, GI consult 3. Obesity Monitor, PPI 4. Hx colon cancer Monitor, PPI 5. Benign essential HTN Monitor, IV fluids Assessment/Plan Subjective: Patient is awake and alert. Objective: Patient is complaining of severe abdominal pain, likely due to acute pancreatitis. GI consulted. CA 19-9 is elevated at 450, which could be suspicious for pancreatic cancer, per Gastroenterology patient will need outpatient EUS with possible biopsy. GI has ordered MRCP. Patient has history of colon cancer. Gallbladder ultrasound also pending. Patient does report some improvement in abdominal pain. Plan: Keep NPO, administer IV Dilaudid as needed, continue pain management, awaiting MRCP results Plan discussed with: Patient Date of Service: September 02, 2024 Billing Provider: JUDY MCNEAL MD Common Visit Codes: [id number] INP/OBS CARE (MOD) GIULIANO PINA ECONOMIC RESEARCH ASSISTANT September 02, 2024 15:14
[2024-09-02 16:40] VITALS: BP 136/68; PULSE 70; RESP 17; TEMP 97.8; O2SAT 94
--- NOTE | 2024-09-02 17:15 | DVHPN2 ---
Progress Note - Dictate Date Seen: September 02, 2024 Medical Necessity Reason Pt with a Central, PICC or Fol: No Subjective No new complaints Resting comfortably Lipase still at 61 CA 19-9 elevated to 450 Less abd pain vital signs Vital Sign Date Time Temp Pulse Resp B/P (MAP) Pulse Ox O2 Delivery O2 Flow Rate FiO2 09/02/24 16:40 97.8 70 17 136/68 (90) 94 97.8 09/02/24 08:00 Room Air* 0 21 Total Intake and Output 09/01/24 09/01/24 09/02/24 15:00 23:00 07:00 Intake Total 100 ml 950 ml Balance 100 ml 950 ml medications Current Medications Medications Dose Ordered Sig/Isaiah Route Start Time Stop Time Status Last Admin Dose Admin Sodium Chloride 1,000 ml @ 125 mls/hr Q8H IV 08/30/24 14:00 09/02/24 02:00 125 MLS/HR Atorvastatin Calcium 20 mg HS PO 08/30/24 22:00 09/01/24 21:24 20 MG Acetaminophen/ Hydrocodone Bitart 1 tab Q4HP PRN PO 08/30/24 16:45 08/31/24 05:54 1 TAB Ondansetron HCl 4 mg Q4HP PRN IV 08/30/24 16:45 09/02/24 03:19 4 MG Enoxaparin Sodium 40 mg DAILY SC 08/31/24 10:00 09/02/24 09:04 40 MG Acetaminophen 650 mg Q6HP PRN PO 08/30/24 16:45 09/02/24 09:02 650 MG Morphine Sulfate 2 mg Q4HPRN PRN IV 08/30/24 16:45 UNV Hydromorphone HCl 1 mg Q4HPRN PRN IV 08/31/24 10:30 09/02/24 14:48 1 MG Pantoprazole Sodium 40 mg DAILY IV 08/31/24 11:00 09/02/24 09:02 40 MG objective GENERAL:Normal, NECK:Normal, LUNGS:Normal, CVS:Normal, ABDOMEN:Normal, SKIN:Normal laboratory and microbiology Laboratory Tests 08/31/24 06:54 Test 08/31/24 06:54 Range/Units Serum Glucose 87 74-106 mg/dL Problems(with codes): (1) Elevated CA 19-9 level (2) Ileus (3) Acalculous cholecystitis (4) Epigastric pain (5) Acute pancreatitis Prognosis PLAN Pt does not have gallstones; mild gallbladder distendion However CA 19-9 is 450 suspiciuos for pancreatic cancer; repeat level in 1-2 weeks Recommend outpt referral for EUS with biopsy possibly as an outpt Arrange MRI pancreas with contrast Plan discussed with: Other (Dr Tom Grissom) MARLENE GRISSOM MD September 02, 2024 17:15
--- NOTE | 2024-09-02 17:28 | DVH ---
CLINICAL HISTORY: Elevated CA 19-9 possible pancreatic malgnancy. TECHNIQUE: Multi sequence multi planar MRI images of the abdomen were obtained prior to and after th e uneventful administration of 15 mL Clariscan contrast COMPARISON: CT dated 08/30/2024. FINDINGS: Motion artifact limits evaluation. Very small subcentimeter T2 hyperintense lesions in the liver without postcontrast enhancement, likely small cysts. Gallbladder is distended. No gallstones visualized in the gallbladder on MRI. No biliary ductal dilatation. The spleen and adrenal glands ar e unremarkable. Very small T2 hyperintense lesions in the kidneys without enhancement, likely small c ysts. Focal heterogeneous prominence of the pancreatic tail on the precontrast images, with similar e chogenicity to the pancreatic parenchyma on the T1 images, with heterogeneous T2 signal, involving an area measuring up to approximately 5.8 x 5.3 x 4.3 cm. Phase postcontrast images demonstrate heterog eneous hypo enhancement in this location, suspicious for malignancy. Abdominal aorta is unremarkable. No visualized retroperitoneal lymphadenopathy. Partially visualized fat containing ventral hernia. IMPRESSION: 1. Motion limited study. 2. Mass of the pancreatic tail as described above, suspected malignancy. 3. Distended gallbladder. No gallstones visualized. No biliary ductal dilatation. Correlate with clin ical findings. 4. Additional findings as described above.
[2024-09-02 21:00] VITALS: BP 134/83; PULSE 83; RESP 19; TEMP 97.7; O2SAT 96
[2024-09-03 01:00] VITALS: BP 134/76; PULSE 76; RESP 18; TEMP 97.7; O2SAT 97
[2024-09-03 05:00] VITALS: BP 127/66; PULSE 77; RESP 18; TEMP 98.4; O2SAT 93
[2024-09-03 09:00] VITALS: BP 139/66; PULSE 82; RESP 16; TEMP 97.8; O2SAT 95
--- NOTE | 2024-09-03 12:18 | DVHPN2 ---
Progress Note Date Seen: September 03, 2024 Medical Necessity Reason Pt with a Central, PICC or Fol: No Objective vital signs Vital Sign Date Time Temp Pulse Resp B/P (MAP) Pulse Ox O2 Delivery O2 Flow Rate FiO2 09/03/24 09:00 97.8 82 16 139/66 (90) 95 97.8 09/03/24 08:00 Room Air* 0 21 Total Intake and Output 09/02/24 09/02/24 09/03/24 15:00 23:00 07:00 Intake Total 0 ml 950 ml Output Total 600 ml Balance -600 ml 950 ml medications Current Medications Medications Dose Ordered Sig/Isaiah Route Start Time Stop Time Status Last Admin Dose Admin Sodium Chloride 1,000 ml @ 125 mls/hr Q8H IV 08/30/24 14:00 09/03/24 02:30 125 MLS/HR Atorvastatin Calcium 20 mg HS PO 08/30/24 22:00 09/02/24 21:23 20 MG Acetaminophen/ Hydrocodone Bitart 1 tab Q4HP PRN PO 08/30/24 16:45 08/31/24 05:54 1 TAB Ondansetron HCl 4 mg Q4HP PRN IV 08/30/24 16:45 09/02/24 20:08 4 MG Enoxaparin Sodium 40 mg DAILY SC 08/31/24 10:00 09/03/24 08:39 40 MG Acetaminophen 650 mg Q6HP PRN PO 08/30/24 16:45 09/03/24 08:38 650 MG Morphine Sulfate 2 mg Q4HPRN PRN IV 08/30/24 16:45 UNV Hydromorphone HCl 1 mg Q4HPRN PRN IV 08/31/24 10:30 09/03/24 02:46 1 MG Pantoprazole Sodium 40 mg DAILY IV 08/31/24 11:00 09/03/24 08:39 40 MG laboratory and microbiology Laboratory Tests 08/31/24 06:54 Test 08/31/24 06:54 Range/Units Serum Glucose 87 74-106 mg/dL Problem List/Assessment/Plan Problem List/Assessment/Plan AFEBRILE VSS ABD SOFT LESS TENDER LIPASE ELEVATED CONTINUE CLOSE OBSERVATION KEEP NPO NURSE AT BEDSIDE REPEAT LABS POSSIBLE CT SCAN ABD PELVIS AM Plan discussed with: Patient AZAM CARRERO MD September 03, 2024 12:18
[2024-09-03 12:32] VITALS: BP 150/73; PULSE 82; RESP 16; TEMP 97.6; O2SAT 97
--- NOTE | 2024-09-03 15:09 | DVHPN2 ---
Progress Note Date Seen: September 03, 2024 Medical Necessity Reason Pt with a Central, PICC or Fol: No Subjective Review of Systems: CVS:Normal, RESPIRATORY:Normal, GI:Normal Objective vital signs Vital Sign Date Time Temp Pulse Resp B/P (MAP) Pulse Ox O2 Delivery O2 Flow Rate FiO2 09/03/24 12:32 97.6 82 16 150/73 (98) 97 97.6 09/03/24 08:00 Room Air* 0 21 Total Intake and Output 09/02/24 09/02/24 09/03/24 15:00 23:00 07:00 Intake Total 0 ml 950 ml Output Total 600 ml Balance -600 ml 950 ml medications Current Medications Medications Dose Ordered Sig/Isaiah Route Start Time Stop Time Status Last Admin Dose Admin Sodium Chloride 1,000 ml @ 125 mls/hr Q8H IV 08/30/24 14:00 09/03/24 02:30 125 MLS/HR Atorvastatin Calcium 20 mg HS PO 08/30/24 22:00 09/02/24 21:23 20 MG Acetaminophen/ Hydrocodone Bitart 1 tab Q4HP PRN PO 08/30/24 16:45 08/31/24 05:54 1 TAB Ondansetron HCl 4 mg Q4HP PRN IV 08/30/24 16:45 09/02/24 20:08 4 MG Enoxaparin Sodium 40 mg DAILY SC 08/31/24 10:00 09/03/24 08:39 40 MG Acetaminophen 650 mg Q6HP PRN PO 08/30/24 16:45 09/03/24 08:38 650 MG Morphine Sulfate 2 mg Q4HPRN PRN IV 08/30/24 16:45 UNV Hydromorphone HCl 1 mg Q4HPRN PRN IV 08/31/24 10:30 09/03/24 02:46 1 MG Pantoprazole Sodium 40 mg DAILY IV 08/31/24 11:00 09/03/24 08:39 40 MG Examination: GENERAL:Normal, LUNGS:Normal, CVS:Normal, ABDOMEN:Normal, SKIN:Normal laboratory and microbiology Laboratory Tests 08/31/24 06:54 Test 08/31/24 06:54 Range/Units Serum Glucose 87 74-106 mg/dL Labs and/or images reviewed: Labs reviewed by me, Image(s) reviewed by me Problem List/Assessment/Plan Problem List/Assessment/Plan 1. Acute pancreatitis Monitor, NPO, GI consult, IV fluids 2. Diverticulitis Monitor, obtain gallbladder ultrasound, GI consult 3. Obesity Monitor, PPI 4. Hx colon cancer Monitor, PPI 5. Benign essential HTN Monitor, IV fluids Assessment/Plan Subjective: Patient is awake and alert. Objective: Patient is complaining of severe abdominal pain, likely due to acute pancreatitis. GI consulted. CA 19-9 is elevated at 450, which could be suspicious for pancreatic cancer, per Gastroenterology patient will need outpatient EUS with possible biopsy. MRCP showed pancreatic mass tail which is suspicious for malignancy. Still awaiting further recommendations from GI, possibly we will need higher level care for EUS. Patient was also seen by Tom Grissom, who will possibly repeat CT tomorrow. Patient has history of colon cancer. Patient does report some improvement in abdominal pain. Plan: Keep NPO, administer IV Dilaudid as needed, continue pain management, await further GI recommendations Plan discussed with: Patient Dietary Evaluation Review Comments: 1) If patient remains NPO > 7 days and ileus remains, consider TPN to meet at least 75% of estimated needs and allow gut rest 2) Advance to cardiac diet when medically feasible, pending [employer] COMMISSIONER approval. Begin wih clear liquids and progress as tolerated. 3) Refer to outpatient RD for weight management 4) Follow-up with gastroenterology and oncology 5) Continue to monitor I&O, labs, and skin integrity Expected Outcomes/Goals: 1) patient to receive nutrition support within 7 days of NPO status 2) diet to advance 3) labs to improve 4) f/u in 2-3 days Date of Service: September 03, 2024 Billing Provider: JUDY MCNEAL MD Common Visit Codes: [id number] INP/OBS CARE (MOD) GIULIANO PINA SMALL OFFSET PRINTER September 03, 2024 15:09
[2024-09-03 17:00] VITALS: BP 130/65; PULSE 78; RESP 16; TEMP 98; O2SAT 95
[2024-09-03 19:59] LABS: Basophils # (auto) 0 10 ^3/uL (0-0.2); Basophils % (auto) 0.6 % (0.0-2.0); Eosinophils # (auto) 0.1 10 ^3/uL (0-0.8); Eosinophils % (auto) 1.2 % (0.0-7.0); Hematocrit 37.2 % (36.0-46.0); Lymphocytes # (auto) 1.6 10 ^3/uL (0.4-5.4); Lymphocytes % (auto) 23.7 % (10.0-50.0); Mean Corpuscular Hemoglobin 26.5 pg (28.0-32.0); Mean Corpuscular Hgb Conc. 32.2 g/dL (32.0-36.0); Mean Corpuscular Volume 82.3 fL (80.0-100.0); Monocytes # (auto) 0.4 10 ^3/uL (0-1.3); Monocytes % (auto) 6.3 % (0.0-12.0); Neutrophils # (auto) 4.5 10 ^3/uL (1.6-8.6); Neutrophils % (auto) 68.2 % (37.0-80.0); Platelet Count (auto) 158 10^3/uL (140-450); Red Blood Cells 4.52 10^6/uL (4.0-5.20); Red Cell Distribution Width 15.6 % (11.8-14.3); White Blood Cell 6.7 10^3/uL (4.4-10.8)
[2024-09-03 20:11] LABS: Alkaline Phosphatase 85 U/L (46-116); Anion Gap 13 (5-15); BUN/Creatinine Ratio 7.1 (10.0-20.0); Calcium 9.2 mg/dL (8.7-10.4); Potassium 3.9 mmol/L (3.5-5.1); Sodium 140 mmol/L (136-145); Total Protein 6.6 g/dL (5.7-8.2)
[2024-09-03 20:12] LABS: Bilirubin, Total 0.3 mg/dL (0.2-1.0)
[2024-09-03 20:14] LABS: Alanine Aminotransferase < 9 U/L (7-40); Aspartate Aminotransferase 10 U/L (13-40); Blood Urea Nitrogen 5 mg/dL (9-23); Carbon Dioxide 16 mmol/L (20-31); Chloride 111 mmol/L (98-107); Glucose 68 mg/dL (74-106)
[2024-09-03 20:33] LABS: Lipase 58 U/L (12-53)
[2024-09-03 21:00] VITALS: BP 155/84; PULSE 77; RESP 19; TEMP 97.6; O2SAT 97
[2024-09-04] VITALS (7 sets, daily range): BP systolic 123–144; BP diastolic 62–76; PULSE 71–86; RESP 16–18; TEMP 97.6–98.3; O2SAT 92–96
[2024-09-04 08:29] LABS: Basophils # (auto) 0 10 ^3/uL (0-0.2); Eosinophils # (auto) 0.1 10 ^3/uL (0-0.8); Hematocrit 38.1 % (36.0-46.0); Lymphocytes # (auto) 1.3 10 ^3/uL (0.4-5.4); Monocytes # (auto) 0.4 10 ^3/uL (0-1.3); Neutrophils # (auto) 5.4 10 ^3/uL (1.6-8.6); Nucleated Red Blood Cells % 0.1 %; White Blood Cell 7.2 10^3/uL (4.4-10.8)
[2024-09-04 08:33] LABS: Alanine Aminotransferase 10 U/L (7-40); Alkaline Phosphatase 89 U/L (46-116); Anion Gap 14 (5-15); BUN/Creatinine Ratio 9.6 (10.0-20.0); Basophils % (auto) 0.6 % (0.0-2.0); Blood Urea Nitrogen 7 mg/dL (9-23); Calcium 9.3 mg/dL (8.7-10.4); Carbon Dioxide 17 mmol/L (20-31); Chloride 108 mmol/L (98-107); Eosinophils % (auto) 0.9 % (0.0-7.0); Glucose 67 mg/dL (74-106); Hemoglobin 12.3 g/dL (12.2-16.2); Lymphocytes % (auto) 18.2 % (10.0-50.0); Mean Corpuscular Hemoglobin 26.5 pg (28.0-32.0); Mean Corpuscular Hgb Conc. 32.4 g/dL (32.0-36.0); Mean Corpuscular Volume 81.8 fL (80.0-100.0); Monocytes % (auto) 5.4 % (0.0-12.0); Neutrophils % (auto) 74.9 % (37.0-80.0); Platelet Count (auto) 176 10^3/uL (140-450); Potassium 3.8 mmol/L (3.5-5.1); Red Blood Cells 4.66 10^6/uL (4.0-5.20); Red Cell Distribution Width 15.6 % (11.8-14.3); Sodium 139 mmol/L (136-145); Total Protein 6.9 g/dL (5.7-8.2)
[2024-09-04 08:34] LABS: Albumin 4.1 g/dL (3.2-4.8); Bilirubin, Total 0.4 mg/dL (0.2-1.0)
[2024-09-04 08:35] LABS: Aspartate Aminotransferase 9 U/L (13-40)
--- NOTE | 2024-09-04 15:16 | DVHPN2 ---
Progress Note - Dictate Date Seen: September 04, 2024 Medical Necessity Reason Pt with a Central, PICC or Fol: No vital signs Vital Sign Date Time Temp Pulse Resp B/P (MAP) Pulse Ox O2 Delivery O2 Flow Rate FiO2 09/04/24 13:38 78 17 131/72 09/04/24 13:00 97.9 92 97.9 09/04/24 08:00 Room Air* 0 21 Total Intake and Output 09/03/24 09/03/24 09/04/24 15:00 23:00 07:00 Intake Total 1000 ml 950 ml Balance 1000 ml 950 ml medications Current Medications Medications Dose Ordered Sig/Isaiah Route Start Time Stop Time Status Last Admin Dose Admin Sodium Chloride 1,000 ml @ 125 mls/hr Q8H IV 08/30/24 14:00 09/04/24 15:08 125 MLS/HR Atorvastatin Calcium 20 mg HS PO 08/30/24 22:00 09/03/24 20:56 20 MG Acetaminophen/ Hydrocodone Bitart 1 tab Q4HP PRN PO 08/30/24 16:45 08/31/24 05:54 1 TAB Ondansetron HCl 4 mg Q4HP PRN IV 08/30/24 16:45 09/03/24 19:52 4 MG Enoxaparin Sodium 40 mg DAILY SC 08/31/24 10:00 09/04/24 08:14 40 MG Acetaminophen 650 mg Q6HP PRN PO 08/30/24 16:45 09/03/24 08:38 650 MG Morphine Sulfate 2 mg Q4HPRN PRN IV 08/30/24 16:45 UNV Hydromorphone HCl 1 mg Q4HPRN PRN IV 08/31/24 10:30 09/04/24 13:08 1 MG Pantoprazole Sodium 40 mg DAILY IV 08/31/24 11:00 09/04/24 08:09 40 MG objective General Appearance: alert, no distress HEENT: EOMI, PERRLA, normal external inspect of ears, no icterus, no nasal drainage Neck: no carotid bruit, no jugular venous distention (JVD), no lymphadenopathy Chest: normal thorax Respiratory: clear to auscultation, normal air movement Cardiovascular: regular rate and rhythm, no diastolic murmur, no jugular venous distention (JVD), no rub, no systolic murmur Abdominal: soft, no hepatomegaly, no mass, no splenomegaly, no tenderness Genitourinary: grossly normal external Musculoskeletal: no joint tenderness, no swelling Extremities: normal pulses, no calf tenderness, no clubbing, no cyanosis, no edema Skin: no bruising, no jaundice, no rash Neurological: alert, No focal deficit laboratory and microbiology Laboratory Tests 09/04/24 07:37 Test 09/04/24 07:37 Range/Units Serum Glucose 67 L 74-106 mg/dL Problem List 1. Acute pancreatitis Monitor, NPO, GI consult, IV fluids 2. Diverticulitis Monitor, obtain gallbladder ultrasound, GI consult 3. Obesity Monitor, PPI 4. Hx colon cancer Monitor, PPI 5. Benign essential HTN Monitor, IV fluids Assessment/Plan Subjective: Patient is awake and alert. Objective: Patient was admitted on August 30, 2024 for abdominal pain related to acute pancreatitis and diverticulitis. Patient was started on IV antibiotics. Patient is still NPO x 5 days. Patient was noted to have episodes of hypoglycemia. CA 19-9 [place] elevated at 455. CT imaging shows mass to the pancreatic tail and a distended gallbladder. Patient was seen by general surgery. Plan: Start TPN for nutritional support. Start D5W for hypoglycemia. GI recommendations appreciated and general surgery recommendations appreciated. Dietary Evaluation Review Comments: 1) If patient remains NPO > 7 days and ileus remains, consider TPN to meet at least 75% of estimated needs and allow gut rest 2) Advance to cardiac diet when medically feasible, pending BRIQUETTER OPERATOR approval. Begin wih clear liquids and progress as tolerated. 3) Refer to outpatient RD for weight management 4) Follow-up with gastroenterology and oncology 5) Continue to monitor I&O, labs, and skin integrity Expected Outcomes/Goals: 1) patient to receive nutrition support within 7 days of NPO status 2) diet to advance 3) labs to improve 4) f/u in 2-3 days Plan discussed with: Patient, Other JOSEMANUEL MELTON ELECTRONICS COMMODITY MANAGER September 04, 2024 15:16
[2024-09-04] MEDS ORDERED: TPN PER PHARMACY 0 ML IV SCH (16:30)
[2024-09-04] MEDS ORDERED: DEXTROSE (50%) 50ML SYRG IV SCH (17:00)
[2024-09-04 17:47] LABS: INR 1.25 (0.9-1.15)
[2024-09-04] MEDS: D5W 5% 1,000 ML IV SCH (17:49)
[2024-09-04] MEDS: InsuLIN REG 1unit/0.01ml Soln (100units/ml) SC SCH (17:58)
[2024-09-04] MEDS: ACCU-CHEK COMFORT CURVE STRIP VI SCH (17:58)
--- NOTE | 2024-09-04 20:57 | DVHPN2 ---
Progress Note - Dictate Date Seen: September 04, 2024 Medical Necessity Reason Pt with a Central, PICC or Fol: No Subjective No new complaints Resting comfortably Lipase still at 58 CA 19-9 elevated to 450 Less abd pain vital signs Vital Sign Date Time Temp Pulse Resp B/P (MAP) Pulse Ox O2 Delivery O2 Flow Rate FiO2 09/04/24 18:21 84 18 122/65 09/04/24 17:00 97.9 95 97.9 09/04/24 08:00 Room Air* 0 21 Total Intake and Output 09/03/24 09/03/24 09/04/24 15:00 23:00 07:00 Intake Total 1000 ml 950 ml Balance 1000 ml 950 ml medications Current Medications Medications Dose Ordered Sig/Isaiah Route Start Time Stop Time Status Last Admin Dose Admin Atorvastatin Calcium 20 mg HS PO 08/30/24 22:00 09/03/24 20:56 20 MG Acetaminophen/ Hydrocodone Bitart 1 tab Q4HP PRN PO 08/30/24 16:45 08/31/24 05:54 1 TAB Ondansetron HCl 4 mg Q4HP PRN IV 08/30/24 16:45 09/04/24 17:51 4 MG Enoxaparin Sodium 40 mg DAILY SC 08/31/24 10:00 09/04/24 08:14 40 MG Acetaminophen 650 mg Q6HP PRN PO 08/30/24 16:45 09/03/24 08:38 650 MG Morphine Sulfate 2 mg Q4HPRN PRN IV 08/30/24 16:45 UNV Hydromorphone HCl 1 mg Q4HPRN PRN IV 08/31/24 10:30 09/04/24 17:51 1 MG Pantoprazole Sodium 40 mg DAILY IV 08/31/24 11:00 09/04/24 08:09 40 MG Dextrose 1,000 ml @ 100 mls/hr Q10H IV 09/04/24 15:15 09/04/24 17:49 100 MLS/HR Amino Acids 0 ml @ 0 mls/hr PER PHARMACY IV 09/04/24 16:30 Amino Acids/ Electrolytes/ Dextrose 1,000 ml @ 41 mls/hr DAILY@2200 IV 09/04/24 22:00 09/05/24 21:59 Diagnostic Test (Pha) 1 strip Q6HR 09/04/24 18:00 09/04/24 17:58 1 STRIP Insulin Human Regular FOLLOW SLIDING SCALE Q6HR SC 09/04/24 18:00 Dextrose 50 ml UD IV 09/04/24 17:00 objective GENERAL:Normal, NECK:Normal, LUNGS:Normal, CVS:Normal, ABDOMEN:Normal, SKIN:Normal laboratory and microbiology Laboratory Tests 09/04/24 07:37 Test 09/04/24 07:37 Range/Units Serum Glucose 67 L 74-106 mg/dL MRI ABD IMPRESSION: 1. Motion limited study. 2. Mass of the pancreatic tail as described above, suspected malignancy. 3. Distended gallbladder. No gallstones visualized. No biliary ductal dilatation. Correlate with clinical findings. Problems(with codes): (1) Pancreatic mass (2) Elevated CA 19-9 level (3) Ileus Prognosis Plan Continue supportive care IV fluid hydration Continue IV antibiotics Referral to higher level of care for possible endoscopic ultrasound FNA and decision regarding further management Overall prognosis is guarded discuss with patient regarding her wishes to pursue any further management or treatment Dietary Evaluation Review Comments: 1) If patient remains NPO > 7 days and ileus remains, consider TPN to meet at least 75% of estimated needs and allow gut rest 2) Advance to cardiac diet when medically feasible, pending MEDIA RECONCILIATION SPECIALIST approval. Begin wih clear liquids and progress as tolerated. 3) Refer to outpatient RD for weight management 4) Follow-up with gastroenterology and oncology 5) Continue to monitor I&O, labs, and skin integrity Expected Outcomes/Goals: 1) patient to receive nutrition support within 7 days of NPO status 2) diet to advance 3) labs to improve 4) f/u in 2-3 days Plan discussed with: Other (Dr Tom Grissom) MARLENE GRISSOM MD September 04, 2024 20:57
[2024-09-04] MEDS: AMINO ACID INFUSION IN D10W 1,000 ML IV SCH (21:56)
[2024-09-05] VITALS (7 sets, daily range): BP systolic 113–142; BP diastolic 60–76; PULSE 71–95; RESP 16–17; TEMP 97.5–98.5; O2SAT 92–100
--- NOTE | 2024-09-05 08:55 | DVHPN2 ---
Progress Note - Dictate Date Seen: September 05, 2024 Medical Necessity Reason Pt with a Central, PICC or Fol: No vital signs Vital Sign Date Time Temp Pulse Resp B/P (MAP) Pulse Ox O2 Delivery O2 Flow Rate FiO2 09/05/24 06:56 79 16 115/62 09/05/24 05:00 97.9 96 97.9 09/04/24 20:00 Room Air* 0 21 Total Intake and Output 09/04/24 09/04/24 09/05/24 15:00 23:00 07:00 Intake Total 1150 ml 369 ml Balance 1150 ml 369 ml medications Current Medications Medications Dose Ordered Sig/Isaiah Route Start Time Stop Time Status Last Admin Dose Admin Atorvastatin Calcium 20 mg HS PO 08/30/24 22:00 09/04/24 21:56 20 MG Acetaminophen/ Hydrocodone Bitart 1 tab Q4HP PRN PO 08/30/24 16:45 08/31/24 05:54 1 TAB Ondansetron HCl 4 mg Q4HP PRN IV 08/30/24 16:45 09/05/24 06:22 4 MG Enoxaparin Sodium 40 mg DAILY SC 08/31/24 10:00 09/04/24 08:14 40 MG Acetaminophen 650 mg Q6HP PRN PO 08/30/24 16:45 09/03/24 08:38 650 MG Morphine Sulfate 2 mg Q4HPRN PRN IV 08/30/24 16:45 UNV Hydromorphone HCl 1 mg Q4HPRN PRN IV 08/31/24 10:30 09/05/24 06:26 1 MG Pantoprazole Sodium 40 mg DAILY IV 08/31/24 11:00 09/04/24 08:09 40 MG Dextrose 1,000 ml @ 100 mls/hr Q10H IV 09/04/24 15:15 09/04/24 17:49 100 MLS/HR Amino Acids 0 ml @ 0 mls/hr PER PHARMACY IV 09/04/24 16:30 Amino Acids/ Electrolytes/ Dextrose 1,000 ml @ 41 mls/hr DAILY@2200 IV 09/04/24 22:00 09/05/24 21:59 09/04/24 21:56 41 MLS/HR Diagnostic Test (Pha) 1 strip Q6HR 09/04/24 18:00 09/05/24 05:24 1 STRIP Insulin Human Regular FOLLOW SLIDING SCALE Q6HR SC 09/04/24 18:00 09/05/24 05:24 2 UNITS Dextrose 50 ml UD IV 09/04/24 17:00 objective General Appearance: alert, no distress HEENT: EOMI, PERRLA, normal external inspect of ears, no icterus, no nasal drainage Neck: no carotid bruit, no jugular venous distention (JVD), no lymphadenopathy Chest: normal thorax Respiratory: clear to auscultation, normal air movement Cardiovascular: regular rate and rhythm, no diastolic murmur, no jugular venous distention (JVD), no rub, no systolic murmur Abdominal: soft, no hepatomegaly, no mass, no splenomegaly, no tenderness Genitourinary: grossly normal external Musculoskeletal: no joint tenderness, no swelling Extremities: normal pulses, no calf tenderness, no clubbing, no cyanosis, no edema Skin: no bruising, no jaundice, no rash Neurological: alert, No focal deficit laboratory and microbiology Laboratory Tests 09/04/24 07:37 Test 09/04/24 07:37 Range/Units Serum Glucose 67 L 74-106 mg/dL Problem List 1. Acute pancreatitis Monitor, NPO, GI consult, IV fluids 2. Diverticulitis Monitor, obtain gallbladder ultrasound, GI consult 3. Obesity Monitor, PPI 4. Hx colon cancer Monitor, PPI 5. Benign essential HTN Monitor, IV fluids Assessment/Plan Subjective: Patient is awake and alert. Objective: Patient was admitted for abdominal pain related to acute pancreatitis. Patient also found to have diverticulitis. GI was consulted. Patient was started on antibiotics. History of colon cancer. CA 19-9 was elevated over 450. Lipase was 58. GI is recommending transfer to a higher level of care for fine needle aspiration and endoscopic ultrasound. Plan: Continue current treatment. tax services professional consult for higher level of care. Continue IV fluids and TPN for nutritional support. Patient continues to have severe abdominal pain. Continue IV pain medication. Dietary Evaluation Review Comments: 1) If patient remains NPO > 7 days and ileus remains, consider TPN to meet at least 75% of estimated needs and allow gut rest 2) Advance to cardiac diet when medically feasible, pending ALUMINUM BOAT ASSEMBLY SUPERVISOR approval. Begin wih clear liquids and progress as tolerated. 3) Refer to outpatient RD for weight management 4) Follow-up with gastroenterology and oncology 5) Continue to monitor I&O, labs, and skin integrity Expected Outcomes/Goals: 1) patient to receive nutrition support within 7 days of NPO status 2) diet to advance 3) labs to improve 4) f/u in 2-3 days Plan discussed with: Patient, Other JOSEMANUEL MELTON DAMAGE ASSESSOR September 05, 2024 08:55
[2024-09-05 10:47] LABS: Basophils # (auto) 0.1 10 ^3/uL (0-0.2); Basophils % (auto) 0.7 % (0.0-2.0); Eosinophils # (auto) 0.1 10 ^3/uL (0-0.8); Eosinophils % (auto) 1.3 % (0.0-7.0); Hemoglobin 12.6 g/dL (12.2-16.2); Lymphocytes # (auto) 1.4 10 ^3/uL (0.4-5.4); Lymphocytes % (auto) 20.9 % (10.0-50.0); Mean Corpuscular Hemoglobin 26.8 pg (28.0-32.0); Mean Corpuscular Hgb Conc. 33.2 g/dL (32.0-36.0); Mean Corpuscular Volume 80.9 fL (80.0-100.0); Monocytes # (auto) 0.5 10 ^3/uL (0-1.3); Monocytes % (auto) 7.6 % (0.0-12.0); Neutrophils # (auto) 4.8 10 ^3/uL (1.6-8.6); Neutrophils % (auto) 69.5 % (37.0-80.0); Platelet Count (auto) 166 10^3/uL (140-450); Red Blood Cells 4.69 10^6/uL (4.0-5.20); Red Cell Distribution Width 15.6 % (11.8-14.3); White Blood Cell 6.9 10^3/uL (4.4-10.8)
[2024-09-05 11:02] LABS: Alkaline Phosphatase 78 U/L (46-116); Anion Gap 10 (5-15); BUN/Creatinine Ratio 11.3 (10.0-20.0); Calcium 8.7 mg/dL (8.7-10.4); Carbon Dioxide 24 mmol/L (20-31); Chloride 104 mmol/L (98-107); Magnesium 1.8 mg/dL (1.6-2.6); Sodium 138 mmol/L (136-145)
[2024-09-05 11:03] LABS: Alanine Aminotransferase < 9 U/L (7-40); Blood Urea Nitrogen 8 mg/dL (9-23); Glucose 120 mg/dL (74-106); Lipase 72 U/L (12-53); Potassium 3.2 mmol/L (3.5-5.1); Total Protein 6.5 g/dL (5.7-8.2)
[2024-09-05 11:04] LABS: Aspartate Aminotransferase < 8 U/L (13-40); Bilirubin, Total 0.4 mg/dL (0.2-1.0); Phosphorus 1.9 mg/dL (2.4-5.1)
[2024-09-05] MEDS: POTASSIUM CHL 20MEQ/100ML 100 ML IV SCH (13:07)
[2024-09-05] MEDS: LIDOCAINE 1% (LOCAL ANESTH.) PF 5ml SDV ID ONE (13:15)
[2024-09-05] MEDS ORDERED: POTASSIUM CHL 20MEQ/100ML 100 ML IV ONE (14:00)
[2024-09-05] MEDS: OMNIPAQUE 12mg/ml 500ml ORAL SOLUTION PO ONE (14:04)
[2024-09-05] MEDS: POTASSIUM PHOSPHATE 26.4 MEQ in SODIUM CHL 0.9% 100 ML IV ONE (15:32)
[2024-09-05] MEDS: IOHEXOL 300 MG/ML 100ML BOTTLE IJ ONE (16:43)
[2024-09-05] MEDS ORDERED: SODIUM PHOSPHATES 40 MEQ in D5W 5% 250 ML IV ONE (17:00)
--- NOTE | 2024-09-05 17:56 | DVH ---
Exam: CT CT AB PELV W WO CON-ORAL IV History: f/u Comparison Study: CT CT AB PEL WO CON-NO ORAL OR IV on DOS: 08/30/24, CT AB PEL WITH IV CON ONLY on DOS : 08/12/21 Technique: Multidetector spiral CT of the abdomen and pelvis was performed with and without contrast. Axial, coronal and sagittal multiplanar reformats were performed by the technologist on a separate w orkstation. Radiation Dose : CT Dose: CTDI volume is 23.77 mGy. Dose-length product is 2473.48 mGy*cm Findings: Bibasilar atelectasis. Partially visualized heart is unremarkable. Subcentimeter hypodense left hepatic lobe lesion that is too small to characterize. Otherwise, liver , spleen, and right adrenal gland are unremarkable. 1.3 cm left adrenal nodule. Significant distentio n of the gallbladder with no CT evidence of acute cholecystitis or cholelithiasis. 2 cm partially janes cified lesion over the splenic hilum which may represent splenic artery calcification. There is nonenhancement of the pancreatic head and body with heterogeneous appearance of the pancreat ic tail with internal hypodense areas measuring up to 5.1 x 5.9 x 3.8 cm with extension of the market research intern al area of hypodensity superiorly abutting the adjacent stomach. There is fat stranding adjacent to t he pancreatic tail. 2 x 1 cm and 1.4 x 0.9 cm hypodensities with hyperdense wall within the left upper abdominal peripanc reatic fat stranding. Trace ascites. No evidence of intraperitoneal free air. Subcentimeter hypodense left renal lesions that are too small to characterize. Otherwise, kidneys, u reters and urinary bladder unremarkable. Uterus and adnexa not well-visualized. Question hysterectom y. Gastric wall thickening. Small bowel loops unremarkable. Appendix is unremarkable. Contrast is noted within the small and large bowel. Colonic diverticulosis with limited evaluation for diverticulitis given trace amount of fluid within the pelvis. Minimal wall thickening of the transverse colon, desce nding colon, sigmoid and rectum which may be due to inadequate distention. No evidence of aortic aneurysm or dissection. Mild atherosclerotic calcification of the aorta. No significant lymphadenopathy. Small fat containing left inguinal hernia. Right anterolateral large lower abdominal hernia multiple moderate and large fat containing ventral abdominal hernias with partial wall of bowel extending into the hernias. Soft tissues unremarkable. No destructive osseous lesions are noted. IMPRESSION: Non enhancement of the pancreatic head and body without significant adjacent inflammatory reaction. T here is heterogeneously enhancing masslike density over the pancreatic tail measuring up to 5.1 x 5. 9 x 3.8 cm with internal areas of non enhancement which do not measure as simple fluid and associated adjacent fat stranding. Correlate for necrotizing pancreatitis with pancreatic tail mass not complet cee excluded. Follow-up imaging is recommended. Additional 2 x 1 cm and 1.4 x 0.9 cm hypodensities with hyperdense wall are noted within the left upp er abdominal peripancreatic fat stranding which may represent necrotic nodes versus walled off necros is. Trace ascites. Mild gastric wall thickening which may be from the adjacent pancreatic inflammatory process with david ritis not excluded. Multiple ventral abdominal hernias as detailed above. Additional findings as above.
[2024-09-05] MEDS: SODIUM CHLOR 0.9% PF (SALINE LOCK) 10ML VIAL/SYR IV SCH (22:08)
--- NOTE | 2024-09-05 22:18 | DVHPN2 ---
Progress Note - Dictate Date Seen: September 05, 2024 Medical Necessity Reason Pt with a Central, PICC or Fol: No Subjective No new complaints Resting comfortably Lipase still at 72 CA 19-9 elevated to 450 Less abd pain vital signs Vital Sign Date Time Temp Pulse Resp B/P (MAP) Pulse Ox O2 Delivery O2 Flow Rate FiO2 09/05/24 21:57 95 17 113/74 09/05/24 21:00 98.5 95 98.5 09/05/24 08:20 Room Air* 0 21 Total Intake and Output 09/04/24 09/04/24 09/05/24 15:00 23:00 07:00 Intake Total 1150 ml 369 ml Balance 1150 ml 369 ml medications Current Medications Medications Dose Ordered Sig/Isaiah Route Start Time Stop Time Status Last Admin Dose Admin Atorvastatin Calcium 20 mg HS PO 08/30/24 22:00 09/05/24 21:56 20 MG Acetaminophen/ Hydrocodone Bitart 1 tab Q4HP PRN PO 08/30/24 16:45 08/31/24 05:54 1 TAB Ondansetron HCl 4 mg Q4HP PRN IV 08/30/24 16:45 09/05/24 17:17 4 MG Enoxaparin Sodium 40 mg DAILY SC 08/31/24 10:00 09/05/24 09:38 40 MG Acetaminophen 650 mg Q6HP PRN PO 08/30/24 16:45 09/03/24 08:38 650 MG Morphine Sulfate 2 mg Q4HPRN PRN IV 08/30/24 16:45 UNV Hydromorphone HCl 1 mg Q4HPRN PRN IV 08/31/24 10:30 09/05/24 21:57 1 MG Pantoprazole Sodium 40 mg DAILY IV 08/31/24 11:00 09/05/24 09:36 40 MG Dextrose 1,000 ml @ 100 mls/hr Q10H IV 09/04/24 15:15 09/04/24 17:49 100 MLS/HR Amino Acids 0 ml @ 0 mls/hr PER PHARMACY IV 09/04/24 16:30 Amino Acids/ Electrolytes/ Dextrose 1,000 ml @ 41 mls/hr DAILY@2200 IV 09/04/24 22:00 09/06/24 21:59 09/05/24 21:57 41 MLS/HR Diagnostic Test (Pha) 1 strip Q6HR 09/04/24 18:00 09/05/24 18:00 1 STRIP Insulin Human Regular FOLLOW SLIDING SCALE Q6HR SC 09/04/24 18:00 09/05/24 11:49 2 UNITS Dextrose 50 ml UD IV 09/04/24 17:00 Sodium Chloride 10 ml QSHIFT@10,22 IV 09/05/24 22:00 09/05/24 22:08 10 ML objective GENERAL:Normal, NECK:Normal, LUNGS:Normal, CVS:Normal, ABDOMEN:Normal, SKIN:Normal laboratory and microbiology Laboratory Tests 09/05/24 10:34 Test 09/05/24 10:34 Range/Units Serum Glucose 120 H 74-106 mg/dL Problems(with codes): (1) Pancreatic mass (2) Elevated CA 19-9 level (3) Ileus (4) Epigastric pain (5) Acute pancreatitis Prognosis Plan Continue supportive care IV fluid hydration IV Clinimix Trial of clear liquids Continue IV antibiotics Referral to higher level of care for possible endoscopic ultrasound FNA and decision regarding further management Overall prognosis is guarded patient was notified about the possibility of pancreatic cancer and she stated " that is not good" she is willing to pursue further workup and testing Dietary Evaluation Review Comments: 1) If patient remains NPO > 7 days and ileus remains, consider TPN to meet at least 75% of estimated needs and allow gut rest 2) Advance to cardiac diet when medically feasible, pending LOGGING TRACTOR OPERATOR approval. Begin wih clear liquids and progress as tolerated. 3) Refer to outpatient RD for weight management 4) Follow-up with gastroenterology and oncology 5) Continue to monitor I&O, labs, and skin integrity Expected Outcomes/Goals: 1) patient to receive nutrition support within 7 days of NPO status 2) diet to advance 3) labs to improve 4) f/u in 2-3 days Plan discussed with: Patient, Other (Nurse) MARLENE CARRERO MD September 05, 2024 22:18
[2024-09-06] VITALS (8 sets, daily range): BP systolic 98–138; BP diastolic 50–82; PULSE 82–94; RESP 16–17; TEMP 97.8–98.6; O2SAT 92–97
--- NOTE | 2024-09-06 09:30 | DVHPN2 ---
Progress Note - Dictate Date Seen: September 06, 2024 Medical Necessity Reason Pt with a Central, PICC or Fol: No vital signs Vital Sign Date Time Temp Pulse Resp B/P (MAP) Pulse Ox O2 Delivery O2 Flow Rate FiO2 09/06/24 09:00 98.2 82 17 116/72 (87) 96 98.2 09/05/24 20:00 Room Air* 0 21 Total Intake and Output 09/05/24 09/05/24 09/06/24 15:00 23:00 07:00 Intake Total 731 ml 369 ml Balance 731 ml 369 ml medications Current Medications Medications Dose Ordered Sig/Isaiah Route Start Time Stop Time Status Last Admin Dose Admin Atorvastatin Calcium 20 mg HS PO 08/30/24 22:00 09/05/24 21:56 20 MG Acetaminophen/ Hydrocodone Bitart 1 tab Q4HP PRN PO 08/30/24 16:45 09/06/24 02:07 1 TAB Ondansetron HCl 4 mg Q4HP PRN IV 08/30/24 16:45 09/05/24 17:17 4 MG Enoxaparin Sodium 40 mg DAILY SC 08/31/24 10:00 09/05/24 09:38 40 MG Acetaminophen 650 mg Q6HP PRN PO 08/30/24 16:45 09/03/24 08:38 650 MG Morphine Sulfate 2 mg Q4HPRN PRN IV 08/30/24 16:45 UNV Hydromorphone HCl 1 mg Q4HPRN PRN IV 08/31/24 10:30 09/05/24 21:57 1 MG Pantoprazole Sodium 40 mg DAILY IV 08/31/24 11:00 09/05/24 09:36 40 MG Dextrose 1,000 ml @ 100 mls/hr Q10H IV 09/04/24 15:15 09/04/24 17:49 100 MLS/HR Amino Acids 0 ml @ 0 mls/hr PER PHARMACY IV 09/04/24 16:30 Amino Acids/ Electrolytes/ Dextrose 1,000 ml @ 41 mls/hr DAILY@2200 IV 09/04/24 22:00 09/06/24 21:59 09/05/24 21:57 41 MLS/HR Diagnostic Test (Pha) 1 strip Q6HR 09/04/24 18:00 09/06/24 06:06 1 STRIP Insulin Human Regular FOLLOW SLIDING SCALE Q6HR SC 09/04/24 18:00 09/06/24 06:06 2 UNITS Dextrose 50 ml UD IV 09/04/24 17:00 Sodium Chloride 10 ml QSHIFT@10,22 IV 09/05/24 22:00 09/05/24 22:08 10 ML objective General Appearance: alert, no distress HEENT: EOMI, PERRLA, normal external inspect of ears, no icterus, no nasal drainage Neck: no carotid bruit, no jugular venous distention (JVD), no lymphadenopathy Chest: normal thorax Respiratory: clear to auscultation, normal air movement Cardiovascular: regular rate and rhythm, no diastolic murmur, no jugular venous distention (JVD), no rub, no systolic murmur Abdominal: soft, no hepatomegaly, no mass, no splenomegaly, no tenderness Genitourinary: grossly normal external Musculoskeletal: no joint tenderness, no swelling Extremities: normal pulses, no calf tenderness, no clubbing, no cyanosis, no edema Skin: no bruising, no jaundice, no rash Neurological: alert, No focal deficit laboratory and microbiology Laboratory Tests 09/05/24 10:34 Test 09/05/24 10:34 Range/Units Serum Glucose 120 H 74-106 mg/dL Problem List 1. Acute pancreatitis Monitor, NPO, GI consult, IV fluids 2. Diverticulitis Monitor, obtain gallbladder ultrasound, GI consult 3. Obesity Monitor, PPI 4. Hx colon cancer Monitor, PPI 5. Benign essential HTN Monitor, IV fluids Assessment/Plan Subjective: Patient is awake and alert. Objective: I spoke with patient at length today in regards to her plan of care. Patient was admitted for severe abdominal pain related to acute pancreatitis. Necrotizing pancreatitis cannot be ruled out. Repeat CT of the abdomen did show a enhancing pancreatic mass measuring up to 5.1 by 5.9 by 3.8cm. There is some possible necrotic nodes. Patient was seen by GI, they are recommending a higher level of care for EUS and possible fine nose aspiration and further workup for possible pancreatic cancer. Patient has an elevated CA 19-9 at 450. Plan: Continue current treatment. Continue TPN and NPO status. Patient states she will update her daughter July. Plan to transfer to higher level of care. I did do a peer to peer with I waiting on insurance authorization. Dietary Evaluation Review Comments: 1) If patient remains NPO > 7 days and ileus remains, consider TPN to meet at least 75% of estimated needs and allow gut rest 2) Advance to cardiac diet when medically feasible, pending TECHNOLOGY PROGRAM MANAGER approval. Begin wih clear liquids and progress as tolerated. 3) Refer to outpatient RD for weight management 4) Follow-up with gastroenterology and oncology 5) Continue to monitor I&O, labs, and skin integrity Expected Outcomes/Goals: 1) patient to receive nutrition support within 7 days of NPO status 2) diet to advance 3) labs to improve 4) f/u in 2-3 days Plan discussed with: Patient, Other JOSEMANUEL MELTON POPCORN CANDY MAKER September 06, 2024 09:30
[2024-09-06 10:39] LABS: Albumin 3.9 g/dL (3.2-4.8); Alkaline Phosphatase 77 U/L (46-116); Anion Gap 10 (5-15); BUN/Creatinine Ratio 15.9 (10.0-20.0); Blood Urea Nitrogen 11 mg/dL (9-23); Calcium 9.4 mg/dL (8.7-10.4); Carbon Dioxide 24 mmol/L (20-31); Chloride 106 mmol/L (98-107); Magnesium 1.7 mg/dL (1.6-2.6); Sodium 140 mmol/L (136-145); Total Protein 6.6 g/dL (5.7-8.2); Triglycerides 89 mg/dL (< 150)
[2024-09-06 10:40] LABS: Bilirubin, Total 0.5 mg/dL (0.2-1.0)
[2024-09-06 10:43] LABS: Alanine Aminotransferase 9 U/L (7-40); Aspartate Aminotransferase 8 U/L (13-40); Glucose 132 mg/dL (74-106)
[2024-09-06 11:03] LABS: Lipase 69 U/L (12-53)
[2024-09-06] MEDS: POTASSIUM CHL 20MEQ/100ML 100 ML IV SCH (14:02)
[2024-09-06] MEDS: SODIUM PHOSPHATES 24 MEQ in SODIUM CHL 0.9% 100 ML IV ONE (19:08)
[2024-09-06] MEDS: TPN PER PHARMACY IV NR (21:33)
[2024-09-07] VITALS (9 sets, daily range): BP systolic 107–135; BP diastolic 60–78; PULSE 67–93; RESP 16–18; TEMP 98–99; O2SAT 93–98
[2024-09-07 07:13] LABS: Albumin 3.9 g/dL (3.2-4.8); Alkaline Phosphatase 69 U/L (46-116); Anion Gap 11 (5-15); BUN/Creatinine Ratio 18.8 (10.0-20.0); Bilirubin, Total 0.4 mg/dL (0.2-1.0); Blood Urea Nitrogen 12 mg/dL (9-23); Calcium 8.7 mg/dL (8.7-10.4); Carbon Dioxide 26 mmol/L (20-31); Chloride 105 mmol/L (98-107); Magnesium 1.8 mg/dL (1.6-2.6); Phosphorus 3.1 mg/dL (2.4-5.1); Sodium 142 mmol/L (136-145); Total Protein 6.4 g/dL (5.7-8.2)
[2024-09-07 07:15] LABS: Alanine Aminotransferase < 9 U/L (7-40); Aspartate Aminotransferase < 8 U/L (13-40); Glucose 124 mg/dL (74-106); Potassium 3.2 mmol/L (3.5-5.1)
--- NOTE | 2024-09-07 11:50 | DVHPN2 ---
Progress Note - Dictate Date Seen: September 07, 2024 Medical Necessity Reason Pt with a Central, PICC or Fol: No vital signs Vital Sign Date Time Temp Pulse Resp B/P (MAP) Pulse Ox O2 Delivery O2 Flow Rate FiO2 09/07/24 09:00 98.8 89 17 133/68 (89) 97 98.8 09/07/24 08:00 Room Air* 0 21 Total Intake and Output 09/06/24 09/06/24 09/07/24 15:00 23:00 07:00 Intake Total 631 ml 502 ml Balance 631 ml 502 ml medications Current Medications Medications Dose Ordered Sig/Isaiah Route Start Time Stop Time Status Last Admin Dose Admin Atorvastatin Calcium 20 mg HS PO 08/30/24 22:00 09/06/24 21:30 20 MG Acetaminophen/ Hydrocodone Bitart 1 tab Q4HP PRN PO 08/30/24 16:45 09/06/24 18:01 1 TAB Ondansetron HCl 4 mg Q4HP PRN IV 08/30/24 16:45 09/05/24 17:17 4 MG Enoxaparin Sodium 40 mg DAILY SC 08/31/24 10:00 09/07/24 09:20 40 MG Acetaminophen 650 mg Q6HP PRN PO 08/30/24 16:45 09/03/24 08:38 650 MG Morphine Sulfate 2 mg Q4HPRN PRN IV 08/30/24 16:45 UNV Hydromorphone HCl 1 mg Q4HPRN PRN IV 08/31/24 10:30 09/07/24 08:26 1 MG Pantoprazole Sodium 40 mg DAILY IV 08/31/24 11:00 09/07/24 09:20 40 MG Dextrose 1,000 ml @ 100 mls/hr Q10H IV 09/04/24 15:15 09/04/24 17:49 100 MLS/HR Amino Acids 0 ml @ 0 mls/hr PER PHARMACY IV 09/04/24 16:30 Diagnostic Test (Pha) 1 strip Q6HR 09/04/24 18:00 09/07/24 05:35 1 STRIP Insulin Human Regular FOLLOW SLIDING SCALE Q6HR SC 09/04/24 18:00 09/07/24 05:35 2 UNITS Dextrose 50 ml UD IV 09/04/24 17:00 Sodium Chloride 10 ml QSHIFT@10,22 IV 09/05/24 22:00 09/06/24 21:35 10 ML Fat Emulsion Intravenous 50 ml/ Potassium Phosphate 22 meq/ Magnesium Sulfate 4 meq/ Multivitamins 10 ml/Chromium/ Copper/Manganese/ Zinc 1 ml/Amino Acids/Dextrose 1,067 ml @ 44 mls/hr [id number] IV 09/06/24 22:00 09/07/24 21:59 09/06/24 21:33 44 MLS/HR Fat Emulsion Intravenous 100 ml/Potassium Acetate 40 meq/ Magnesium Sulfate 6 meq/ Multivitamins 10 ml/Chromium/ Copper/Manganese/ Zinc 1 ml/Amino Acids/Dextrose 1,332.5 ml @ 55 mls/hr [id number] IV 09/07/24 22:00 09/08/24 21:59 objective General Appearance: alert, no distress HEENT: EOMI, PERRLA, normal external inspect of ears, no icterus, no nasal drainage Neck: no carotid bruit, no jugular venous distention (JVD), no lymphadenopathy Chest: normal thorax Respiratory: clear to auscultation, normal air movement Cardiovascular: regular rate and rhythm, no diastolic murmur, no jugular venous distention (JVD), no rub, no systolic murmur Abdominal: soft, no hepatomegaly, no mass, no splenomegaly, no tenderness Genitourinary: grossly normal external Musculoskeletal: no joint tenderness, no swelling Extremities: normal pulses, no calf tenderness, no clubbing, no cyanosis, no edema Skin: no bruising, no jaundice, no rash Neurological: alert, No focal deficit laboratory and microbiology Laboratory Tests 09/07/24 06:11 09/05/24 10:34 Test 09/07/24 06:11 Range/Units Serum Glucose 124 H 74-106 mg/dL Problem List 1. Acute pancreatitis Monitor, NPO, GI consult, IV fluids 2. Diverticulitis Monitor, obtain gallbladder ultrasound, GI consult 3. Obesity Monitor, PPI 4. Hx colon cancer Monitor, PPI 5. Benign essential HTN Monitor, IV fluids Assessment/Plan Subjective: Patient is awake and alert. Objective: I discussed plan of care with patient at length. Patient was admitted for abdominal pain. She was found to have acute pancreatitis. Repeat CT imaging shows mass of the pancreas and possible necrotic nodes. Patient was seen by gastroenterology. They are recommending higher level of care for EUS and possible biopsy and FNA. I also discussed plan of care with patients son Kranthi Garcia. I did give a peer to peer to physician at [facility]. Still waiting on insurance authorization. Plan: Continue current treatment. Continue TPN and NPO status. Plan to transfer to higher level of care. I did do a peer to peer with [facility] waiting on insurance authorization. Dietary Evaluation Review Comments: 1) If patient remains NPO > 7 days and ileus remains, consider TPN to meet at least 75% of estimated needs and allow gut rest 2) Advance to cardiac diet when medically feasible, pending HOT MILL OPERATOR approval. Begin wih clear liquids and progress as tolerated. 3) Refer to outpatient RD for weight management 4) Follow-up with gastroenterology and oncology 5) Continue to monitor I&O, labs, and skin integrity Expected Outcomes/Goals: 1) patient to receive nutrition support within 7 days of NPO status 2) diet to advance 3) labs to improve 4) f/u in 2-3 days Plan discussed with: Patient, Other JOSEMANUEL MELTON NP September 07, 2024 11:50
--- NOTE | 2024-09-07 14:13 | DVHPN2 ---
Progress Note - Dictate Date Seen: September 07, 2024 Medical Necessity Reason Pt with a Central, PICC or Fol: No Subjective No new complaints Resting comfortably Lipase at 69 CA 19-9 elevated to 450 Less abd pain vital signs Vital Sign Date Time Temp Pulse Resp B/P (MAP) Pulse Ox O2 Delivery O2 Flow Rate FiO2 09/07/24 13:00 98.8 91 17 113/63 (80) 94 98.8 09/07/24 08:00 Room Air* 0 21 Total Intake and Output 09/06/24 09/06/24 09/07/24 15:00 23:00 07:00 Intake Total 631 ml 502 ml Balance 631 ml 502 ml medications Current Medications Medications Dose Ordered Sig/Isaiah Route Start Time Stop Time Status Last Admin Dose Admin Atorvastatin Calcium 20 mg HS PO 08/30/24 22:00 09/06/24 21:30 20 MG Acetaminophen/ Hydrocodone Bitart 1 tab Q4HP PRN PO 08/30/24 16:45 09/06/24 18:01 1 TAB Ondansetron HCl 4 mg Q4HP PRN IV 08/30/24 16:45 09/05/24 17:17 4 MG Enoxaparin Sodium 40 mg DAILY SC 08/31/24 10:00 09/07/24 09:20 40 MG Acetaminophen 650 mg Q6HP PRN PO 08/30/24 16:45 09/03/24 08:38 650 MG Morphine Sulfate 2 mg Q4HPRN PRN IV 08/30/24 16:45 UNV Hydromorphone HCl 1 mg Q4HPRN PRN IV 08/31/24 10:30 09/07/24 08:26 1 MG Pantoprazole Sodium 40 mg DAILY IV 08/31/24 11:00 09/07/24 09:20 40 MG Dextrose 1,000 ml @ 100 mls/hr Q10H IV 09/04/24 15:15 09/04/24 17:49 100 MLS/HR Amino Acids 0 ml @ 0 mls/hr PER PHARMACY IV 09/04/24 16:30 Diagnostic Test (Pha) 1 strip Q6HR 09/04/24 18:00 09/07/24 12:14 1 STRIP Insulin Human Regular FOLLOW SLIDING SCALE Q6HR SC 09/04/24 18:00 09/07/24 12:14 2 UNITS Dextrose 50 ml UD IV 09/04/24 17:00 Sodium Chloride 10 ml QSHIFT@10,22 IV 09/05/24 22:00 09/07/24 10:00 10 ML Fat Emulsion Intravenous 50 ml/ Potassium Phosphate 22 meq/ Magnesium Sulfate 4 meq/ Multivitamins 10 ml/Chromium/ Copper/Manganese/ Zinc 1 ml/Amino Acids/Dextrose 1,067 ml @ 44 mls/hr [id number] IV 09/06/24 22:00 09/07/24 21:59 09/06/24 21:33 44 MLS/HR Fat Emulsion Intravenous 100 ml/Potassium Acetate 40 meq/ Magnesium Sulfate 6 meq/ Multivitamins 10 ml/Chromium/ Copper/Manganese/ Zinc 1 ml/Amino Acids/Dextrose 1,332.5 ml @ 55 mls/hr [id number] IV 09/07/24 22:00 09/08/24 21:59 objective GENERAL:Normal, NECK:Normal, LUNGS:Normal, CVS:Normal, ABDOMEN:Normal, SKIN:Normal laboratory and microbiology Laboratory Tests 09/07/24 06:11 09/05/24 10:34 Test 09/07/24 06:11 Range/Units Serum Glucose 124 H 74-106 mg/dL CT SCAN ABD PELVIS 09/05 IMPRESSION: Non enhancement of the pancreatic head and body without significant adjacent inflammatory reaction. There is heterogeneously enhancing masslike density over the pancreatic tail measuring up to 5.1 x 5.9 x 3.8 cm with internal areas of non enhancement which do not measure as simple fluid and associated adjacent fat stranding. Correlate for necrotizing pancreatitis with pancreatic tail mass not completely excluded. Follow-up imaging is recommended. Additional 2 x 1 cm and 1.4 x 0.9 cm hypodensities with hyperdense wall are noted within the left upper abdominal peripancreatic fat stranding which may represent necrotic nodes versus walled off necrosis. Trace ascites. Mild gastric wall thickening which may be from the adjacent pancreatic inflammatory process with gastritis not excluded. Multiple ventral abdominal hernias as detailed above. Additional findings as above. Problems(with codes): (1) Pancreatic mass (2) Elevated CA 19-9 level (3) Ileus (4) Acalculous cholecystitis Prognosis Plan Continue supportive care IV fluid hydration IV Clinimix Trial of clear liquids Continue IV antibiotics Referral to higher level of care for possible endoscopic ultrasound FNA and decision regarding further management Patient is accepted at [facility] and is awaiting authorization and bed availability Overall prognosis is guarded Patient was notified about the possibility of pancreatic cancer and she stated " that is not good" She is willing to pursue further workup and testing Dietary Evaluation Review Comments: 1) If patient remains NPO > 7 days and ileus remains, consider TPN to meet at least 75% of estimated needs and allow gut rest 2) Advance to cardiac diet when medically feasible, pending SUPERVISOR FERTILIZER approval. Begin wih clear liquids and progress as tolerated. 3) Refer to outpatient RD for weight management 4) Follow-up with gastroenterology and oncology 5) Continue to monitor I&O, labs, and skin integrity Expected Outcomes/Goals: 1) patient to receive nutrition support within 7 days of NPO status 2) diet to advance 3) labs to improve 4) f/u in 2-3 days Plan discussed with: Patient, Other (Mayda Bonilla) MARLENE CARRERO MD September 07, 2024 14:13
[2024-09-07] MEDS: POTASSIUM CHL 20MEQ/100ML 100 ML IV ONE (15:56)
[2024-09-07] MEDS: TPN PER PHARMACY IV NR (22:59)
[2024-09-08] VITALS (8 sets, daily range): BP systolic 98–120; BP diastolic 57–71; PULSE 79–88; RESP 17–20; TEMP 97.6–98.7; O2SAT 92–98
[2024-09-08 07:48] LABS: Albumin 3.9 g/dL (3.2-4.8); Alkaline Phosphatase 71 U/L (46-116); Anion Gap 9 (5-15); BUN/Creatinine Ratio 24.1 (10.0-20.0); Blood Urea Nitrogen 14 mg/dL (9-23); Calcium 9.3 mg/dL (8.7-10.4); Carbon Dioxide 27 mmol/L (20-31); Chloride 104 mmol/L (98-107); Magnesium 1.8 mg/dL (1.6-2.6); Sodium 140 mmol/L (136-145); Total Protein 6.5 g/dL (5.7-8.2)
[2024-09-08 07:49] LABS: Bilirubin, Total 0.3 mg/dL (0.2-1.0)
[2024-09-08 07:52] LABS: Alanine Aminotransferase < 9 U/L (7-40); Aspartate Aminotransferase < 8 U/L (13-40); Glucose 130 mg/dL (74-106); Phosphorus 2.4 mg/dL (2.4-5.1); Potassium 3.3 mmol/L (3.5-5.1)
[2024-09-08] MEDS: GADOTERATE MEG 7.5 MMOL/15ml INJ (0.5MMOL/ml) IV ONE (08:55)
--- NOTE | 2024-09-08 10:49 | DVHPN2 ---
Progress Note - Dictate Date Seen: September 08, 2024 Medical Necessity Reason Pt with a Central, PICC or Fol: No vital signs Vital Sign Date Time Temp Pulse Resp B/P (MAP) Pulse Ox O2 Delivery O2 Flow Rate FiO2 09/08/24 10:41 80 19 115/66 09/08/24 09:20 97.8 92 97.8 09/07/24 20:00 Room Air* 0 21 Total Intake and Output 09/07/24 09/07/24 09/08/24 15:00 23:00 07:00 Intake Total 0 ml 200 ml 800 ml Balance 0 ml 200 ml 800 ml medications Current Medications Medications Dose Ordered Sig/Isaiah Route Start Time Stop Time Status Last Admin Dose Admin Atorvastatin Calcium 20 mg HS PO 08/30/24 22:00 09/07/24 22:38 20 MG Acetaminophen/ Hydrocodone Bitart 1 tab Q4HP PRN PO 08/30/24 16:45 09/06/24 18:01 1 TAB Ondansetron HCl 4 mg Q4HP PRN IV 08/30/24 16:45 09/05/24 17:17 4 MG Enoxaparin Sodium 40 mg DAILY SC 08/31/24 10:00 09/08/24 09:05 40 MG Acetaminophen 650 mg Q6HP PRN PO 08/30/24 16:45 09/03/24 08:38 650 MG Morphine Sulfate 2 mg Q4HPRN PRN IV 08/30/24 16:45 UNV Hydromorphone HCl 1 mg Q4HPRN PRN IV 08/31/24 10:30 09/08/24 10:41 1 MG Pantoprazole Sodium 40 mg DAILY IV 08/31/24 11:00 09/08/24 09:05 40 MG Dextrose 1,000 ml @ 100 mls/hr Q10H IV 09/04/24 15:15 09/08/24 03:49 100 MLS/HR Amino Acids 0 ml @ 0 mls/hr PER PHARMACY IV 09/04/24 16:30 Diagnostic Test (Pha) 1 strip Q6HR 09/04/24 18:00 09/08/24 06:06 1 STRIP Insulin Human Regular FOLLOW SLIDING SCALE Q6HR SC 09/04/24 18:00 09/08/24 06:05 2 UNITS Dextrose 50 ml UD IV 09/04/24 17:00 Sodium Chloride 10 ml QSHIFT@10,22 IV 09/05/24 22:00 09/08/24 09:06 10 ML Fat Emulsion Intravenous 100 ml/Potassium Acetate 40 meq/ Magnesium Sulfate 6 meq/ Multivitamins 10 ml/Chromium/ Copper/Manganese/ Zinc 1 ml/Amino Acids/Dextrose 1,332.5 ml @ 55 mls/hr [id number] IV 09/07/24 22:00 09/08/24 21:59 09/07/24 22:59 55 MLS/HR objective General Appearance: alert, no distress HEENT: EOMI, PERRLA, normal external inspect of ears, no icterus, no nasal drainage Neck: no carotid bruit, no jugular venous distention (JVD), no lymphadenopathy Chest: normal thorax Respiratory: clear to auscultation, normal air movement Cardiovascular: regular rate and rhythm, no diastolic murmur, no jugular venous distention (JVD), no rub, no systolic murmur Abdominal: soft, no hepatomegaly, no mass, no splenomegaly, no tenderness Genitourinary: grossly normal external Musculoskeletal: no joint tenderness, no swelling Extremities: normal pulses, no calf tenderness, no clubbing, no cyanosis, no edema Skin: no bruising, no jaundice, no rash Neurological: alert, No focal deficit laboratory and microbiology Laboratory Tests 09/08/24 05:55 09/05/24 10:34 Test 09/08/24 05:55 Range/Units Serum Glucose 130 H 74-106 mg/dL Problem List 1. Acute pancreatitis Monitor, NPO, GI consult, IV fluids 2. Diverticulitis Monitor, obtain gallbladder ultrasound, GI consult 3. Obesity Monitor, PPI 4. Hx colon cancer Monitor, PPI 5. Benign essential HTN Monitor, IV fluids Assessment/Plan Subjective: Patient is awake and alert. Objective: No change to patient status. Patient was admitted for abdominal pain related to acute pancreatitis. Necrotizing pancreatitis cannot be ruled out. CT imaging has a suspicious pancreatic mass. CA19-9 was elevated. Patient's family was updated. Patient will need higher level of care transfer for EUS and possible biopsy and fine needle aspiration. [facility] has accepted. Plan: Continue current treatment. [facility]ing for transfer to [facility]. Continue to monitor and continue pain medications as tolerated. Continue TPN for nutritional support. Dietary Evaluation Review Comments: 1) If patient remains NPO > 7 days and ileus remains, consider TPN to meet at least 75% of estimated needs and allow gut rest 2) Advance to cardiac diet when medically feasible, pending MOLDER OFFBEARER approval. Begin wih clear liquids and progress as tolerated. 3) Refer to outpatient RD for weight management 4) Follow-up with gastroenterology and oncology 5) Continue to monitor I&O, labs, and skin integrity Expected Outcomes/Goals: 1) patient to receive nutrition support within 7 days of NPO status 2) diet to advance 3) labs to improve 4) f/u in 2-3 days Plan discussed with: Patient, Other JOSEMANUEL MELTON POWER MANAGER September 08, 2024 10:49
[2024-09-08] MEDS: POTASSIUM CHL 20MEQ/100ML 100 ML IV SCH (11:00)
--- NOTE | 2024-09-08 11:57 | DVHPN2 ---
Progress Note - Dictate Date Seen: September 08, 2024 Medical Necessity Reason Pt with a Central, PICC or Fol: No Subjective No new complaints Resting comfortably Lipase down to 54 CA 19-9 elevated to 450 Less abd pain vital signs Vital Sign Date Time Temp Pulse Resp B/P (MAP) Pulse Ox O2 Delivery O2 Flow Rate FiO2 09/08/24 10:41 80 19 115/66 09/08/24 09:20 97.8 92 97.8 09/07/24 20:00 Room Air* 0 21 Total Intake and Output 09/07/24 09/07/24 09/08/24 14:59 22:59 06:59 Intake Total 0 ml 200 ml 400 ml Balance 0 ml 200 ml 400 ml medications Current Medications Medications Dose Ordered Sig/Isaiah Route Start Time Stop Time Status Last Admin Dose Admin Atorvastatin Calcium 20 mg HS PO 08/30/24 22:00 09/07/24 22:38 20 MG Acetaminophen/ Hydrocodone Bitart 1 tab Q4HP PRN PO 08/30/24 16:45 09/06/24 18:01 1 TAB Ondansetron HCl 4 mg Q4HP PRN IV 08/30/24 16:45 09/05/24 17:17 4 MG Enoxaparin Sodium 40 mg DAILY SC 08/31/24 10:00 09/08/24 09:05 40 MG Acetaminophen 650 mg Q6HP PRN PO 08/30/24 16:45 09/03/24 08:38 650 MG Morphine Sulfate 2 mg Q4HPRN PRN IV 08/30/24 16:45 UNV Hydromorphone HCl 1 mg Q4HPRN PRN IV 08/31/24 10:30 09/08/24 10:41 1 MG Pantoprazole Sodium 40 mg DAILY IV 08/31/24 11:00 09/08/24 09:05 40 MG Dextrose 1,000 ml @ 100 mls/hr Q10H IV 09/04/24 15:15 09/08/24 03:49 100 MLS/HR Amino Acids 0 ml @ 0 mls/hr PER PHARMACY IV 09/04/24 16:30 Diagnostic Test (Pha) 1 strip Q6HR 09/04/24 18:00 09/08/24 06:06 1 STRIP Insulin Human Regular FOLLOW SLIDING SCALE Q6HR SC 09/04/24 18:00 09/08/24 06:05 2 UNITS Dextrose 50 ml UD IV 09/04/24 17:00 Sodium Chloride 10 ml QSHIFT@10,22 IV 09/05/24 22:00 09/08/24 09:06 10 ML Fat Emulsion Intravenous 100 ml/Potassium Acetate 40 meq/ Magnesium Sulfate 6 meq/ Multivitamins 10 ml/Chromium/ Copper/Manganese/ Zinc 1 ml/Amino Acids/Dextrose 1,332.5 ml @ 55 mls/hr [id number] IV 09/07/24 22:00 09/08/24 21:59 09/07/24 22:59 55 MLS/HR Potassium Chloride 100 ml @ 50 mls/hr Q2H IV 09/08/24 11:00 09/08/24 14:59 objective GENERAL:Normal, NECK:Normal, LUNGS:Normal, CVS:Normal, ABDOMEN:Normal, SKIN:Normal laboratory and microbiology Laboratory Tests 09/08/24 05:55 09/05/24 10:34 Test 09/08/24 05:55 Range/Units Serum Glucose 130 H 74-106 mg/dL Problems(with codes): (1) Pancreatic mass (2) Elevated CA 19-9 level (3) Ileus (4) Acalculous cholecystitis (5) Left upper quadrant abdominal pain affecting in first trimester (6) Epigastric pain Prognosis Plan Continue supportive care IV fluid hydration IV Clinimix Trial of clear liquids Continue IV antibiotics Referral to higher level of care for possible endoscopic ultrasound FNA and decision regarding further management Patient is accepted at [facility] and is awaiting authorization and bed availability Overall prognosis is guarded Dietary Evaluation Review Comments: 1) If patient remains NPO > 7 days and ileus remains, consider TPN to meet at least 75% of estimated needs and allow gut rest 2) Advance to cardiac diet when medically feasible, pending [facility] approval. Begin wih clear liquids and progress as tolerated. 3) Refer to outpatient RD for weight management 4) Follow-up with gastroenterology and oncology 5) Continue to monitor I&O, labs, and skin integrity Expected Outcomes/Goals: 1) patient to receive nutrition support within 7 days of NPO status 2) diet to advance 3) labs to improve 4) f/u in 2-3 days Plan discussed with: Other (None) MARLENE CARRERO MD September 08, 2024 11:57
[2024-09-08] MEDS: POTASSIUM PHOSPHATE 22 MEQ in SODIUM CHL 0.9% 100 ML IV ONE (14:10)
[2024-09-08] MEDS: FAT EMULSION IV NR (21:39)
[2024-09-08] MEDS: SODIUM CHLORIDE IV NR (21:39)
[2024-09-08] MEDS: POTASSIUM ACETATE IV NR (21:39)
[2024-09-08] MEDS: [UNRECOGNIZED DRUG - OTHER] IV NR (21:39)
[2024-09-09] VITALS (8 sets, daily range): BP systolic 110–132; BP diastolic 57–71; PULSE 77–88; RESP 17–20; TEMP 97.8–98.4; O2SAT 94–97
[2024-09-09 07:12] LABS: Albumin 3.8 g/dL (3.2-4.8); Alkaline Phosphatase 66 U/L (46-116); Anion Gap 10 (5-15); BUN/Creatinine Ratio 21.1 (10.0-20.0); Blood Urea Nitrogen 12 mg/dL (9-23); Calcium 9.6 mg/dL (8.7-10.4); Carbon Dioxide 27 mmol/L (20-31); Chloride 102 mmol/L (98-107); Phosphorus 2.9 mg/dL (2.4-5.1); Potassium 3.6 mmol/L (3.5-5.1); Sodium 139 mmol/L (136-145); Total Protein 6.3 g/dL (5.7-8.2)
[2024-09-09 07:13] LABS: Bilirubin, Total 0.3 mg/dL (0.2-1.0)
[2024-09-09 07:18] LABS: Alanine Aminotransferase < 9 U/L (7-40); Aspartate Aminotransferase 9 U/L (13-40); Glucose 130 mg/dL (74-106)
--- NOTE | 2024-09-09 07:25 | DVHPN2 ---
Progress Note - Dictate Date Seen: September 09, 2024 Medical Necessity Reason Pt with a Central, PICC or Fol: No vital signs Vital Sign Date Time Temp Pulse Resp B/P (MAP) Pulse Ox O2 Delivery O2 Flow Rate FiO2 09/09/24 05:34 86 16 124/71 09/09/24 05:00 97.8 97 97.8 09/08/24 20:00 Room Air* 0 21 Total Intake and Output 09/08/24 09/08/24 09/09/24 15:00 23:00 07:00 Intake Total 1300 ml Balance 1300 ml medications Current Medications Medications Dose Ordered Sig/Isaiah Route Start Time Stop Time Status Last Admin Dose Admin Atorvastatin Calcium 20 mg HS PO 08/30/24 22:00 09/08/24 21:40 20 MG Ondansetron HCl 4 mg Q4HP PRN IV 08/30/24 16:45 09/05/24 17:17 4 MG Enoxaparin Sodium 40 mg DAILY SC 08/31/24 10:00 09/08/24 09:05 40 MG Acetaminophen 650 mg Q6HP PRN PO 08/30/24 16:45 09/03/24 08:38 650 MG Morphine Sulfate 2 mg Q4HPRN PRN IV 08/30/24 16:45 UNV Hydromorphone HCl 1 mg Q4HPRN PRN IV 08/31/24 10:30 09/09/24 05:04 1 MG Pantoprazole Sodium 40 mg DAILY IV 08/31/24 11:00 09/08/24 09:05 40 MG Dextrose 1,000 ml @ 100 mls/hr Q10H IV 09/04/24 15:15 09/08/24 03:49 100 MLS/HR Amino Acids 0 ml @ 0 mls/hr PER PHARMACY IV 09/04/24 16:30 Diagnostic Test (Pha) 1 strip Q6HR 09/04/24 18:00 09/09/24 05:09 1 STRIP Insulin Human Regular FOLLOW SLIDING SCALE Q6HR SC 09/04/24 18:00 09/09/24 05:09 2 UNITS Dextrose 50 ml UD IV 09/04/24 17:00 Sodium Chloride 10 ml QSHIFT@10,22 IV 09/05/24 22:00 09/08/24 21:39 10 ML Fat Emulsion Intravenous 150 ml/Sodium Chloride 20 meq/ Potassium Acetate 20 meq/Potassium Phosphate 40 meq/ Magnesium Sulfate 8 meq/ Multivitamins 10 ml/Chromium/ Copper/Manganese/ Zinc 1 ml/Amino Acids/Dextrose 1,437.0909 ml @ 60 mls/hr [id number] IV 09/08/24 22:00 09/09/24 21:59 09/08/24 21:39 60 MLS/HR objective General Appearance: alert, no distress HEENT: EOMI, PERRLA, normal external inspect of ears, no icterus, no nasal drainage Neck: no carotid bruit, no jugular venous distention (JVD), no lymphadenopathy Chest: normal thorax Respiratory: clear to auscultation, normal air movement Cardiovascular: regular rate and rhythm, no diastolic murmur, no jugular venous distention (JVD), no rub, no systolic murmur Abdominal: soft, no hepatomegaly, no mass, no splenomegaly, no tenderness Genitourinary: grossly normal external Musculoskeletal: no joint tenderness, no swelling Extremities: normal pulses, no calf tenderness, no clubbing, no cyanosis, no edema Skin: no bruising, no jaundice, no rash Neurological: alert, No focal deficit laboratory and microbiology Laboratory Tests 09/09/24 04:35 09/05/24 10:34 Test 09/09/24 04:35 Range/Units Serum Glucose 130 H 74-106 mg/dL Problem List 1. Acute pancreatitis Monitor, NPO, GI consult, IV fluids 2. Diverticulitis Monitor, obtain gallbladder ultrasound, GI consult 3. Obesity Monitor, PPI 4. Hx colon cancer Monitor, PPI 5. Benign essential HTN Monitor, IV fluids Assessment/Plan Subjective: Patient is awake and alert. Objective: Patient was admitted for abdominal pain related to acute pancreatitis. CA 19-9 level is elevated at 450. Liver enzymes are decreasing. Patient was started on a clear liquid diet and is tolerating well. Plan: Continue TPN for additional nutritional support. Continue clear liquid diet as tolerated. [facility] [place] accepted patient for discharge for EUS and possible biopsy with fine needle aspiration to rule out pancreatic cancer. Dietary Evaluation Review Comments: 1) If patient remains NPO > 7 days and ileus remains, consider TPN to meet at least 75% of estimated needs and allow gut rest 2) Advance to cardiac diet when medically feasible, pending LOCOMOTIVE MECHANIC approval. Begin wih clear liquids and progress as tolerated. 3) Refer to outpatient RD for weight management 4) Follow-up with gastroenterology and oncology 5) Continue to monitor I&O, labs, and skin integrity Expected Outcomes/Goals: 1) patient to receive nutrition support within 7 days of NPO status 2) diet to advance 3) labs to improve 4) f/u in 2-3 days Plan discussed with: Patient, Other JOSEMANUEL MELTON NP September 09, 2024 07:25
[2024-09-09 07:50] LABS: Basophils # (auto) 0 10 ^3/uL (0-0.2); Lymphocytes # (auto) 1.7 10 ^3/uL (0.4-5.4); Lymphocytes % (auto) 27.7 % (10.0-50.0); Monocytes # (auto) 0.6 10 ^3/uL (0-1.3); Neutrophils # (auto) 3.6 10 ^3/uL (1.6-8.6); Neutrophils % (auto) 58.1 % (37.0-80.0); Nucleated Red Blood Cells % 0.1 %; White Blood Cell 6.2 10^3/uL (4.4-10.8)
[2024-09-09 07:52] LABS: Basophils % (auto) 0.5 % (0.0-2.0); Eosinophils # (auto) 0.2 10 ^3/uL (0-0.8); Eosinophils % (auto) 3.8 % (0.0-7.0); Hematocrit 37.1 % (36.0-46.0); Hemoglobin 12.2 g/dL (12.2-16.2); INR 1.22 (0.9-1.15); Mean Corpuscular Hemoglobin 26.6 pg (28.0-32.0); Mean Corpuscular Hgb Conc. 32.8 g/dL (32.0-36.0); Mean Corpuscular Volume 81.2 fL (80.0-100.0); Monocytes % (auto) 9.9 % (0.0-12.0); Platelet Count (auto) 157 10^3/uL (140-450); Prothrombin Time 12.7 sec (9.3-11.8); Red Blood Cells 4.57 10^6/uL (4.0-5.20); Red Cell Distribution Width 15.5 % (11.8-14.3)
[2024-09-09] MEDS: HYDROmorphone HCL 2 MG/ML VL/or syr IV PRN (16:44)
[2024-09-09] MEDS: HYDROcodone-ACET 5/325MG TAB PO PRN (20:22)
[2024-09-09] MEDS: TPN PER PHARMACY IV NR (22:54)
[2024-09-10 01:00] VITALS: BP 99/49; PULSE 75; RESP 20; TEMP 97.8; O2SAT 94
[2024-09-10 05:00] VITALS: BP 145/75; PULSE 87; RESP 17; TEMP 97.7; O2SAT 94
[2024-09-10 07:59] LABS: Albumin 3.8 g/dL (3.2-4.8); Alkaline Phosphatase 69 U/L (46-116); Anion Gap 9 (5-15); BUN/Creatinine Ratio 24.6 (10.0-20.0); Blood Urea Nitrogen 16 mg/dL (9-23); Calcium 9.3 mg/dL (8.7-10.4); Carbon Dioxide 27 mmol/L (20-31); Chloride 102 mmol/L (98-107); Magnesium 2.2 mg/dL (1.6-2.6); Sodium 138 mmol/L (136-145); Total Protein 6.3 g/dL (5.7-8.2)
[2024-09-10 08:00] VITALS: PULSE 86; RESP 19; O2SAT 97
[2024-09-10 08:00] LABS: Bilirubin, Total 0.3 mg/dL (0.2-1.0); Phosphorus 2.9 mg/dL (2.4-5.1); Potassium 3.3 mmol/L (3.5-5.1)
[2024-09-10 08:01] LABS: Alanine Aminotransferase < 9 U/L (7-40); Aspartate Aminotransferase < 8 U/L (13-40); Glucose 189 mg/dL (74-106)
[2024-09-10 08:13] VITALS: BP 123/61; PULSE 80; RESP 17; TEMP 97.7; O2SAT 97
--- NOTE | 2024-09-10 12:26 | DVHDS2 ---
Discharge Summary Date of Admission August 30, 2024 at 16:44 Date of Discharge: September 09, 2024 Labs/Diagnostic Data: Laboratory Results Test 09/10/24 11:35 09/10/24 06:30 09/09/24 04:35 09/06/24 10:10 POC Glucose 138 mg/dl (70-106) Sodium Level 138 mmol/L (136-145) Potassium Level 3.3 mmol/L (3.5-5.1) Chloride Level 102 mmol/L (98-107) Carbon Dioxide Level 27 mmol/L (20-31) Anion Gap 9 (5-15) Blood Urea Nitrogen 16 mg/dL (9-23) Creatinine 0.65 mg/dL (0.550-1.02) Glomerular Filtration Rate Calc 90 mL/min (>90) BUN/Creatinine Ratio 24.6 (10.0-20.0) Serum Glucose 189 mg/dL (74-106) Calcium Level 9.3 mg/dL (8.7-10.4) Phosphorus Level 2.9 mg/dL (2.4-5.1) Magnesium Level 2.2 mg/dL (1.6-2.6) Total Bilirubin 0.3 mg/dL (0.2-1.0) Aspartate Amino Transferase (AST) < 8 U/L (13-40) Alanine Aminotransferase (ALT) < 9 U/L (7-40) Alkaline Phosphatase 69 U/L (46-116) Total Protein 6.3 g/dL (5.7-8.2) Albumin 3.8 g/dL (3.2-4.8) White Blood Count 6.2 10^3/uL (4.4-10.8) Red Blood Count 4.57 10^6/uL (4.0-5.20) Hemoglobin 12.2 g/dL (12.2-16.2) Hematocrit 37.1 % (36.0-46.0) Mean Corpuscular Volume 81.2 fL (80.0-100.0) Mean Corpuscular Hemoglobin 26.6 pg (28.0-32.0) Mean Corpuscular Hemoglobin Concent 32.8 g/dL (32.0-36.0) Red Cell Distribution Width 15.5 % (11.8-14.3) Platelet Count 157 10^3/uL (140-450) Mean Platelet Volume 10.5 fL (6.9-10.8) Neutrophils (%) (Auto) 58.1 % (37.0-80.0) Lymphocytes (%) (Auto) 27.7 % (10.0-50.0) Monocytes (%) (Auto) 9.9 % (0.0-12.0) Eosinophils (%) (Auto) 3.8 % (0.0-7.0) Basophils (%) (Auto) 0.5 % (0.0-2.0) Neutrophils # (Auto) 3.6 10 ^3/uL (1.6-8.6) Lymphocytes # (Auto) 1.7 10 ^3/uL (0.4-5.4) Monocytes # (Auto) 0.6 10 ^3/uL (0-1.3) Eosinophils # (Auto) 0.2 10 ^3/uL (0-0.8) Basophils # (Auto) 0 10 ^3/uL (0-0.2) Nucleated Red Blood Cells 0.1 % Prothrombin Time 12.7 sec (9.3-11.8) Prothrombin Time INR 1.22 (0.9-1.15) Lipase 50 U/L (12-53) Triglycerides Level 89 mg/dL (< 150) Test 09/04/24 17:00 09/02/24 06:14 08/31/24 12:09 08/30/24 14:06 Activated Partial Thromboplast Time 27.0 SEC (24.5-34.5) Amylase Level 76 U/L (30-118) Tumor Marker Alpha Fetoprotein 4.8 ng/mL (0.0-9.2) CA 19-9 Antigen 450 U/mL (0-35) Lactic Acid Level 1.0 mmol/L (0.4-2.0) Troponin I High Sensitivity 4 ng/L (</=34) Test 08/30/24 10:30 Urine Color Light-yellow (Yellow) Urine Clarity Clear (Clear) Urine pH 6.5 (5.0-9.0) Urine Specific [place] 1.017 (1.001-1.035) Urine Protein Negative (Negative) Urine Ketones Negative (Negative) Urine Blood Negative /uL (Negative) Urine Nitrite Negative (Negative) Urine Bilirubin Negative (Negative) Urine Urobilinogen Normal mg/dL (Negative) Urine Leukocyte Esterase Trace /uL (Negative) Urine RBC <1 /hpf (0 - 4) Urine Microscopic WBC 2 /HPF (0-5) Urine Squamous Epithelial Cells Few /hpf (<5) Urine Bacteria None seen /hpf (None Seen) Urine Hyaline Casts Few /lpf (0 - 2) Urine Mucus Few (None Seen) Urine Glucose Normal mg/dL (Normal) Other Laboratory Tests 09/10/24 06:30 09/09/24 04:35 Brief Hx & Hospital Course: 79 yo female patient with hx of HLD, colon cancer, and arthritis c/o constant LUQ abdominal pain x 2 weeks that worsened x 3 days. While in the emergency department the patient was evaluated by the provider, As per provider: Labs, vital signs, and imagining monitored. Patient was admitted on August 30, 2024 for acute abdominal pain related to acute pancreatitis. Necrotizing pancreatitis cannot be ruled out. Patient was also found to have some suspicion. Patient was also found to possibly have some necrotic nodes. Patient was seen by GI. Imaging shows a pancreatic mass. Patient had elevated CA19-9 levels, which shows more for a concern for possible pancreatic cancer. GI is recommending higher level of care transfer for EUS and pancreatic biopsy or fine-needle aspiration. Patient was accepted by [facility] [place]. Patient will transfer to acute EUS and possible biopsy. Patient was able to start a clear liquid diet. PPN was weaned off. She was discharged in stable condition. The patient received proper medical treatment and medications. Vital signs, Imaging and Laboratory Work was monitored daily. All consults recommendations were followed as provided. There were no complaints or new complaints upon discharge, all questions and concerns were answered. Patient was advised to return to the ER or call 911 if any headaches, dizziness, shortness of breath, chest pain, bleeding, fevers, or worsening of medical condition. Patient/Family was counseled about treatment plan, medications, possible side effects, patient verbalized understanding. All questions were answered to the best of my ability. The patient symptoms improved and they are okay to be DC. Condition at Discharge: Good Final Diagnosis/Problems List Pancreatitis with pancreatic mass Needs EUS and/or FNA, bx Acute pancreatitis Diverticulitis Obesity Hx colon cancer Benign essential HTN Discharge Disposition: Acute Care Facility Discharge Instruct/Medications Diet: See Comment Diet comment: clear liquids Activity: No Restrictions, As Tolerated Discharge Statement: "Patient was advised to return to the ER or call 911 if any headaches, dizziness, shortness of breath, chest pain, abdominal pain, bleeding, fevers, or worsening of medical condition. Patient was counseled about treatment plan, medications, possible side effects, patientverbalized understanding. All questions were answered to the best of my ability. This discharge took greater then 30 minutes in planning, reviewing documentation, counseling the patient, and discussing with other team members." ASSESSMENT ASSESSMENT Assessment Pancreatitis with pancreatic mass Needs EUS and/or FNA, bx JOSEMANUEL MELTON NP September 10, 2024 12:26
[2024-09-10] MEDS: POTASSIUM CHL 20 Meq TABLET PO ONE (12:30)
[2024-09-10 12:49] VITALS: BP 95/52; PULSE 63; RESP 17; TEMP 98.3; O2SAT 93
[2024-09-10] MEDS: POTASSIUM CHL 20MEQ/100ML 100 ML IV ONE (13:17)
[2024-09-10 14:58] VITALS: BP 95/56; PULSE 78; RESP 20
[2024-09-10] MEDS ORDERED: TPN PER PHARMACY IV NR (22:00)
== END 2024-09-10 15:58 | disposition short-term general hospital (02) | DRG 438 ==
LOC: ER 09:53 → OVERFLOW 16:44 → WEST WING 18:37
PROVIDERS: ADMIT Nurse Practitioner; ATTEND Nurse Practitioner
PROC: 02HV33Z Insertion of Infusion Device into Superior Vena Cava, Percutaneous Approach (ICD-10-PCS; principal; 2024-09-05)
PROC: B548ZZA Ultrasonography of Superior Vena Cava, Guidance (ICD-10-PCS; 2024-09-05)
DX: K85.91 Acute pancreatitis with uninfected necrosis, unspecified (principal); N17.0 Acute kidney failure with tubular necrosis; K57.32 Diverticulitis of large intestine without perforation or abscess without bleeding; I10 Essential (primary) hypertension; E66.9 Obesity, unspecified; E78.5 Hyperlipidemia, unspecified; Z83.3 Family history of diabetes mellitus; Z85.038 Personal history of other malignant neoplasm of large intestine; Z88.5 Allergy status to narcotic agent; Z90.710 Acquired absence of both cervix and uterus; Z79.899 Other long term (current) drug therapy; Z68.33 Body mass index [BMI] 33.0-33.9, adult
CPT/HCPCS: 36415; 36569; 71045; 74176; 74178; 74183; 76705; 76937; 80053; 81001; 82105; 82150; 82962; 83605; 83690; 83735; 84100; 84478; 84484; 85025; 85610; 85730; 86301; 93005; 99291; G0378; J1815; J2405; J2470; J2543; J3480; J7060; J7131

== ENCOUNTER 2024-09-13 10:32 | Inpatient (IN) | payer MEDICARE, OTHER ==
[~2024-09-13] VITALS: Ht 172.7 cm; Wt 93.4 kg
[~2024-09-13 10:32] MED LIST changes: +HYDR-4069 PO; -HYDR1TAB97; -TRAZ1TAB12 PO
[2024-09-13 12:35] VITALS: BP 120/64; PULSE 77; RESP 17; TEMP 97.9; O2SAT 94
[2024-09-13 12:53] VITALS: BP 120/64; PULSE 77; PULSE 87; RESP 17; RESP 18; TEMP 97.9; O2SAT 94
[2024-09-13] MEDS ORDERED: NITROGLYCERIN 0.4 MG SL TAB SL PRN (13:00)
--- NOTE | 2024-09-13 13:25 | DVHHP2 ---
Admitting Diagnosis: Acute Pancreatitis History of Present Illness Patient is a 79 y/o female admitting back as a transfer from [facility] [place] [place]. Patient was previously seen at [facility] for acute pancreatitis. CT imaging showed a pancreatic mass. Patient had elevated CA 19-9 at 450. Patient was seen and evaluated by gastroenterology. Patient needed an EUS and biopsy of pancreatic mass. Patient also had suspicious lymph nodes. Necrotizing pancreatitis could not be ruled out. While in the emergency department the patient was evaluated by the provider, Labs, vital signs, and imagining monitored. Patient will be admitted for further evaluation and treatment. I discussed admission with the patient/family and is in agreement to treatment plan. Patient Family History: Diabetes mellitus G8 MOTHER, FH: heart disease G8 MOTHER, Allergies: Coded Allergies: Morphine (Verified Allergy, Unknown, 08/08/21) Home Meds Reported Medications Hydrocodone-Acetaminophen (Hydrocodone/Acetaminophen 7.5-325 mg) 1 Tab Tab, 1 TAB PO Q8HR 08/30/24 Simvastatin (Simvastatin) 20 Mg Tab, 1 TAB PO 08/08/21 Current Medications Current Medications Medications (Trade) Dose Ordered Sig/Isaiah Route PRN Reason Start Time Stop Time Status Last Admin Nitroglycerin (Ntrostat Sublingual) 0.4 mg Q5MINP PRN SL FOR CHEST PAIN 09/13/24 13:00 Sodium Chloride 1,000 ml @ 120 mls/hr Q8H20M IV 09/13/24 13:30 09/13/24 15:43 Acetaminophen/ Hydrocodone Bitart ([place] 5/325MG Tab) 1 tab Q4HP PRN PO MODERATE PAIN (4-6 PAIN SCALE) 09/13/24 13:30 09/13/24 20:44 Ondansetron HCl (Zofran) 4 mg Q4HP PRN IV NAUSEA / VOMITING 09/13/24 13:30 Docusate Sodium (Colace Capsule) 100 mg BIDPRN PRN PO FOR CONSTIPATION 09/13/24 13:30 Acetaminophen (Tylenol Tablet) 650 mg Q6HP PRN PO PAIN SCALE 1-3 OR TEMP>100.4 09/13/24 13:30 Enoxaparin Sodium (Lovenox) 40 mg DAILY SC 09/14/24 10:00 Cancel Hydromorphone HCl (Dilaudid Injection) 1 mg Q4HPRN PRN IV SEVERE PAIN (7-10 PAIN SCALE) 09/13/24 13:30 09/13/24 15:43 Enoxaparin Sodium (Lovenox) 90 mg Q12H SC 09/13/24 18:00 09/13/24 17:55 Review of Systems Constitutional: denies chills, denies fever, denies malaise Eyes: denies eye pain, denies vision change ENT: denies ear pain, denies headache, denies nasal congestion, denies painful swallowing, denies voice change Cardiovascular: denies chest pain, denies edema, denies orthopnea, denies palpitations, denies paroxysmal nocturnal dyspnea Respiratory: denies cough, denies shortness of breath Gastrointestinal: denies constipation, denies diarrhea, denies nausea, denies v omiting Genitourinary: denies dysuria, denies frequent urination, denies urethral discharge Musculoskeletal: denies back pain, denies joint pain, denies muscle pain Skin: denies bruising, denies itching, denies rash Neurological: denies focal weakness, denies headache, denies sensory changes Psychiatric: denies anxiety, denies depression Endocrine: denies polydipsia, denies polyuria Hematologic/Lymphatic: denies easy bleeding, denies easy bruising, denies enlarged lymph nodes Allergic/Immunologic: denies allergy, denies hives Vital Signs Vital Signs Date Time Temp Pulse Resp B/P (MAP) Pulse Ox O2 Delivery O2 Flow Rate FiO2 09/13/24 16:30 97.9 72 17 136/78 (97) 93 97.9 09/13/24 12:53 Room Air* 0 21 Physical Exam General Appearance: alert, no distress HEENT: EOMI, PERRLA, normal external inspect of ears, no icterus, no nasal drainage Neck: no carotid bruit, no jugular venous distention (JVD), no lymphadenopathy Chest: normal thorax Respiratory: clear to auscultation, normal air movement Cardiovascular: regular rate and rhythm, no diastolic murmur, no jugular venous distention (JVD), no rub, no systolic murmur Abdominal: soft, no hepatomegaly, no mass, no splenomegaly, no tenderness Genitourinary: grossly normal external Musculoskeletal: no joint tenderness, no swelling Extremities: normal pulses, no calf tenderness, no clubbing, no cyanosis, no edema Skin: no bruising, no jaundice, no rash Neurological: alert, No focal deficit Results Labs Test 09/13/24 14:30 09/13/24 14:23 Range/Units Influenza Type A Antigen Negative Negative Influenza Type B Antigen Negative Negative SARS-CoV-2 Antigen (Rapid) Negative NEGATIVE Sodium Level 137 136-145 mmol/L Potassium Level 4.0 3.5-5.1 mmol/L Chloride Level 102 98-107 mmol/L Carbon Dioxide Level 28 20-31 mmol/L Anion Gap 7 5-15 Blood Urea Nitrogen 13 9-23 mg/dL Creatinine 0.85 # 0.550-1.02 mg/dL Glomerular Filtration Rate Calc 70 >90 mL/min BUN/Creatinine Ratio 15.3 10.0-20.0 Serum Glucose 132 H 74-106 mg/dL Calcium Level 8.5 L 8.7-10.4 mg/dL Total Bilirubin 0.2 0.2-1.0 mg/dL Aspartate Amino Transferase (AST) 9 L 13-40 U/L Alanine Aminotransferase (ALT) < 9 7-40 U/L Alkaline Phosphatase 86 46-116 U/L Total Protein 6.2 5.7-8.2 g/dL Albumin 3.7 3.2-4.8 g/dL Lipase 43 12-53 U/L Thyroid Stimulating Hormone (TSH) 2.55 0.55-4.78 uIU/mL Admitting Diagnosis: 1. Pancreatic tail mass Monitoring, Medication 2. Elevated CA19-9 Repeat Labs 3. Hx of Colon Cancer GI consult 4. Hx of DVT Monitoring, Lovenox 5. Atrial Fibrillation Cardiology Consult, EKG Plan discussed with: Patient, Other JOSEMANUEL MELTON NP September 13, 2024 13:25
[2024-09-13] MEDS ORDERED: DOCUSATE SOD 100 MG CAP PO PRN (13:30)
[2024-09-13] MEDS ORDERED: ACETAMINOPHEN 325 MG TAB PO PRN (13:30)
--- NOTE | 2024-09-13 14:21 | DVH ---
EXAM: XY CHEST PORTABLE HISTORY: COUGH / SOB COMPARISON: XY CHEST PORTABLE on DOS: 08/30/24, CHEST XRAY 1 VIEW on DOS: 08/23/21, CXR1 on DOS: 08/23/21 , CHEST PORTABLE on DOS: 08/22/21, CXRP on DOS: 08/22/21 TECHNIQUE: Portable AP view of the chest was performed. FINDINGS: There is a right upper extremity PICC line with its tip in the mid SVC. There is left lung base scarr ing, stable. The right costophrenic angle is not included on this single view. No pneumothorax, cons olidative infiltrates, or pulmonary edema. The heart is not enlarged. The aortic arch is calcific. IMPRESSION: 1. New right upper extremity PICC line with its tip in the mid SVC. 2. Left lung base scarring. The lungs are otherwise clear. The right costophrenic angle is not imag ed here. 3. Atherosclerotic vascular disease.
[2024-09-13 14:59] LABS: Alanine Aminotransferase < 9 U/L (7-40); Albumin 3.7 g/dL (3.2-4.8); Alkaline Phosphatase 86 U/L (46-116); Anion Gap 7 (5-15); Aspartate Aminotransferase 9 U/L (13-40); BUN/Creatinine Ratio 15.3 (10.0-20.0); Blood Urea Nitrogen 13 mg/dL (9-23); Calcium 8.5 mg/dL (8.7-10.4); Carbon Dioxide 28 mmol/L (20-31); Chloride 102 mmol/L (98-107); Glucose 132 mg/dL (74-106); Lipase 43 U/L (12-53); Sodium 137 mmol/L (136-145); Total Protein 6.2 g/dL (5.7-8.2)
[2024-09-13 15:00] LABS: Bilirubin, Total 0.2 mg/dL (0.2-1.0)
[2024-09-13] MEDS: HYDROmorphone HCL 2 MG/ML VL/or syr IV PRN (15:43)
[2024-09-13] MEDS: SODIUM CHLORIDE 0.9% 1,000 ML IV SCH (15:43)
[2024-09-13 15:48] LABS: COVID19 ANTIGEN SOFIA FIA NEGATIVE (NEGATIVE); Rapid Influenza A Negative (Negative); Rapid Influenza B Negative (Negative)
[2024-09-13 16:30] VITALS: BP 136/78; PULSE 72; RESP 17; TEMP 97.9; O2SAT 93
[2024-09-13] MEDS: ENOXAPARIN SOD 100 MG/1 ML SYRINGE SC SCH (17:55)
[2024-09-13] MEDS: AMIODARONE 360mg/200mL PREMIX 200 ML IV ONE (19:51)
[2024-09-13 20:00] VITALS: PULSE 77; PULSE 78; RESP 18; O2SAT 95
[2024-09-13] MEDS: HYDROcodone-ACET 5/325MG TAB PO PRN (20:44)
[2024-09-13 21:00] VITALS: BP 108/70; PULSE 77; RESP 18; TEMP 96.5; O2SAT 95
--- NOTE | 2024-09-13 21:39 | DVHINCON2 ---
Date of service: September 13, 2024 Referring Physician Mayda Bonilla Reason for Consultation Pancreatic mass History of Present Illness 79-year-old lady was referred back today from [facility] [place] she underwent endoscopic ultrasound with FNA and biopsy of a confirmed pancreatic mass The panel pathology is still pending. Patient was started back on a regular diet while at [facility] and her NPO status and TPN were discontinued Patient is resting comfortably at this time. She denies any nausea vomiting or significant abdominal pain Her lipase level is normalized Past Medical History Recent pancreatitis,arthritis, HLD, colon [id number] Past Surgical History hysterectomy, colon cancer surgery Family History: Diabetes mellitus G8 MOTHER, FH: heart disease G8 MOTHER, Allergies: Coded Allergies: Morphine (Verified Allergy, Unknown, 08/08/21) Home Meds Reported Medications Hydrocodone-Acetaminophen (Hydrocodone/Acetaminophen 7.5-325 mg) 1 Tab Tab, 1 TAB PO Q8HR 08/30/24 Simvastatin (Simvastatin) 20 Mg Tab, 1 TAB PO 08/08/21 Current Medications Current Medications Medications (Trade) Dose Ordered Sig/Isaiah Route PRN Reason Start Time Stop Time Status Last Admin Nitroglycerin (Ntrostat Sublingual) 0.4 mg Q5MINP PRN SL FOR CHEST PAIN 09/13/24 13:00 Sodium Chloride 1,000 ml @ 120 mls/hr Q8H20M IV 09/13/24 13:30 09/13/24 15:43 Acetaminophen/ Hydrocodone Bitart ([place] 5/325MG Tab) 1 tab Q4HP PRN PO MODERATE PAIN (4-6 PAIN SCALE) 09/13/24 13:30 09/13/24 20:44 Ondansetron HCl (Zofran) 4 mg Q4HP PRN IV NAUSEA / VOMITING 09/13/24 13:30 Docusate Sodium (Colace Capsule) 100 mg BIDPRN PRN PO FOR CONSTIPATION 09/13/24 13:30 Acetaminophen (Tylenol Tablet) 650 mg Q6HP PRN PO PAIN SCALE 1-3 OR TEMP>100.4 09/13/24 13:30 Enoxaparin Sodium (Lovenox) 40 mg DAILY SC 09/14/24 10:00 Cancel Hydromorphone HCl (Dilaudid Injection) 1 mg Q4HPRN PRN IV SEVERE PAIN (7-10 PAIN SCALE) 09/13/24 13:30 09/13/24 15:43 Enoxaparin Sodium (Lovenox) 90 mg Q12H SC 09/13/24 18:00 09/13/24 17:55 Vital Signs Vital Signs Date Time Temp Pulse Resp B/P (MAP) Pulse Ox O2 Delivery O2 Flow Rate FiO2 09/13/24 21:00 96.5 77 18 108/70 (83) 95 96.5 09/13/24 12:53 Room Air* 0 21 Physical Exam General Appearance: alert, no distress HEENT: EOMI, PERRLA, Respiratory: clear to auscultation, normal air movement Cardiovascular: regular rate and rhythm, no diastolic murmur, no jugular venous distention (JVD), Abdominal: soft, no hepatomegaly, no mass, no splenomegaly, no tenderness Extremities: normal pulses, no calf tenderness, no clubbing, no cyanosis, no edema Neurological: alert, No focal deficit Labs/Diagnostic Data Labs Test 09/13/24 14:30 09/13/24 14:23 Range/Units Influenza Type A Antigen Negative Negative Influenza Type B Antigen Negative Negative SARS-CoV-2 Antigen (Rapid) Negative NEGATIVE Sodium Level 137 136-145 mmol/L Potassium Level 4.0 3.5-5.1 mmol/L Chloride Level 102 98-107 mmol/L Carbon Dioxide Level 28 20-31 mmol/L Anion Gap 7 5-15 Blood Urea Nitrogen 13 9-23 mg/dL Creatinine 0.85 # 0.550-1.02 mg/dL Glomerular Filtration Rate Calc 70 >90 mL/min BUN/Creatinine Ratio 15.3 10.0-20.0 Serum Glucose 132 H 74-106 mg/dL Calcium Level 8.5 L 8.7-10.4 mg/dL Total Bilirubin 0.2 0.2-1.0 mg/dL Aspartate Amino Transferase (AST) 9 L 13-40 U/L Alanine Aminotransferase (ALT) < 9 7-40 U/L Alkaline Phosphatase 86 46-116 U/L Total Protein 6.2 5.7-8.2 g/dL Albumin 3.7 3.2-4.8 g/dL Lipase 43 12-53 U/L Thyroid Stimulating Hormone (TSH) 2.55 0.55-4.78 uIU/mL CXR IMPRESSION: 1. New right upper extremity PICC line with its tip in the mid SVC. 2. Left lung base scarring. The lungs are otherwise clear. The right costophrenic angle is not imaged here. 3. Atherosclerotic vascular disease. Problems(with codes): (1) Pancreatic mass (2) Elevated CA 19-9 level (3) Acalculous cholecystitis (4) Acute pancreatitis (5) Left upper quadrant abdominal pain affecting in first trimester Plan/Recommendation Plan Continue diet as tolerated Continue supportive care Await final pathology results from I Records from [facility] [place] reviewed Discharge planning as per hospitalist outpatient follow up with me in 2-4 weeks after discharge Outpatient follow up with Oncology pending biopsy results Pain control as needed Outpatient elective colonoscopy to be considered Plan discussed with: Patient, Other (Nurse) MARLENE CARRERO MD September 13, 2024 21:39
[2024-09-14] VITALS (8 sets, daily range): BP systolic 110–157; BP diastolic 64–80; PULSE 62–107; RESP 16–21; TEMP 96–97.7; O2SAT 94–98
[2024-09-14] MEDS: AMIODARONE 360mg/200mL PREMIX 200 ML IV SCH (02:22)
--- NOTE | 2024-09-14 05:44 | ECG ---
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
[2024-09-14 07:35] LABS: Basophils # (auto) 0 10 ^3/uL (0-0.2); Eosinophils # (auto) 0.2 10 ^3/uL (0-0.8); Hematocrit 35.7 % (36.0-46.0); Monocytes # (auto) 0.6 10 ^3/uL (0-1.3); Neutrophils # (auto) 3.3 10 ^3/uL (1.6-8.6); Nucleated Red Blood Cells % 0.1 %
[2024-09-14 07:38] LABS: Basophils % (auto) 0.7 % (0.0-2.0); Eosinophils % (auto) 2.9 % (0.0-7.0); Hemoglobin 11.8 g/dL (12.2-16.2); Lymphocytes # (auto) 1.8 10 ^3/uL (0.4-5.4); Lymphocytes % (auto) 30.6 % (10.0-50.0); Mean Corpuscular Hemoglobin 26.7 pg (28.0-32.0); Mean Corpuscular Hgb Conc. 33.1 g/dL (32.0-36.0); Mean Corpuscular Volume 80.6 fL (80.0-100.0); Monocytes % (auto) 10.2 % (0.0-12.0); Neutrophils % (auto) 55.6 % (37.0-80.0); Platelet Count (auto) 167 10^3/uL (140-450); Red Blood Cells 4.43 10^6/uL (4.0-5.20); Red Cell Distribution Width 15.9 % (11.8-14.3)
[2024-09-14 08:00] LABS: Albumin 3.7 g/dL (3.2-4.8); Alkaline Phosphatase 81 U/L (46-116); Anion Gap 9 (5-15); Aspartate Aminotransferase 17 U/L (13-40); BUN/Creatinine Ratio 14.5 (10.0-20.0); Blood Urea Nitrogen 11 mg/dL (9-23); Carbon Dioxide 27 mmol/L (20-31); Chloride 102 mmol/L (98-107); Potassium 4.3 mmol/L (3.5-5.1); Sodium 138 mmol/L (136-145); Total Protein 6.3 g/dL (5.7-8.2)
[2024-09-14 08:05] LABS: Alanine Aminotransferase < 9 U/L (7-40); Bilirubin, Total < 0.2 mg/dL (0.2-1.0); Calcium 8.6 mg/dL (8.7-10.4); Glucose 115 mg/dL (74-106)
--- NOTE | 2024-09-14 08:23 | DVHINCON2 ---
Date of service: September 14, 2024 History of Present Illness HPI Patient is a 79-year-old female who was sent back from [place] (was sent there secondary to pancreatic mass for pancreatic biopsy). While being managed on tele floor in our hospital, patient was found to have atrial fibrillation (EKG revealed atrial flutter with variable block) and cardiology was involved. Patient denies any previous knowledge of atrial fibrillation/irregular heartbeat. Patient denies previous cardiac problem. 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 She denies chest pains/shortness of breath/palpit ations/leg swellings/orthopnea/PND. Awhile back, after left arm DVT, the patient was on anticoagulation for a while. Home Meds Reported Medications Hydrocodone-Acetaminophen (Hydrocodone/Acetaminophen 7.5-325 mg) 1 Tab Tab, 1 TAB PO Q8HR 08/30/24 Simvastatin (Simvastatin) 20 Mg Tab, 1 TAB PO 08/08/21 Past Medical History Others Past medical history includes hyperlipidemia, morbid obesity, arthritis, old history of colon cancer (9096), diverticulosis, pancreatitis, pancreatic mass, (increased CA-19-9?) and old history of DVT. She has had FNA/pancreatic biopsy recently in [place] (unknown finding). She also has had acalculous cholecystitis previously. Patient Family History: Diabetes mellitus G8 MOTHER, FH: heart disease G8 MOTHER, Smoker: No Hx (Negative) Alocohol: None Drugs: None Review of Systems Constitutional: Malaise Ears, Nose, & Throat: No symptom reported Pulmonary/Respiratory: No symptom reported Cardiovascular: No symptom reported All Other Systems Fourteen point review of system was performed. Relevant findings as per above and as per HPI. Otherwise negative. H&P Exam Vital Signs Vital Signs Date Time Temp Pulse Resp B/P (MAP) Pulse Ox O2 Delivery O2 Flow Rate FiO2 09/14/24 05:00 96.2 65 16 114/64 (81) 95 96.2 09/13/24 20:00 Room Air* 0 21 General Appeara: Well developed, Obese Head Exam: Normal inspection Neck Exam: Normal inspection Eye Exam: bilateral eye PERRL Pulmonary/Respiratory: Rhonci Cardiovascular/Chest: Edema Peripheral Pulses: 2+ carotid (R), 2+ carotid (L), 2+ femoral (R), 2+ femoral (L), 2+ dorsalis pedis (R), 2+ dorsalis pedis (L), 2+ Radial (R), 2+ Radial (L) Abdominal Exam: Normal bowel sounds, Soft Neuro/Mental St: Alert, Oriented Appearance: Appropriate appearance Eye contact/ Speech: Cooperative Labs/Xrays Labs Test 09/14/24 07:00 09/13/24 14:30 09/13/24 14:23 Range/Units White Blood Count 6.0 4.4-10.8 10^3/uL Red Blood Count 4.43 4.0-5.20 10^6/uL Hemoglobin 11.8 L 12.2-16.2 g/dL Hematocrit 35.7 L 36.0-46.0 % Mean Corpuscular Volume 80.6 80.0-100.0 fL Mean Corpuscular Hemoglobin 26.7 L 28.0-32.0 pg Mean Corpuscular Hemoglobin Concent 33.1 32.0-36.0 g/dL Red Cell Distribution Width 15.9 H 11.8-14.3 % Platelet Count 167 140-450 10^3/uL Mean Platelet Volume 11.0 H 6.9-10.8 fL Neutrophils (%) (Auto) 55.6 37.0-80.0 % Lymphocytes (%) (Auto) 30.6 10.0-50.0 % Monocytes (%) (Auto) 10.2 0.0-12.0 % Eosinophils (%) (Auto) 2.9 0.0-7.0 % Basophils (%) (Auto) 0.7 0.0-2.0 % Neutrophils # (Auto) 3.3 1.6-8.6 10 ^3/uL Lymphocytes # (Auto) 1.8 0.4-5.4 10 ^3/uL Monocytes # (Auto) 0.6 0-1.3 10 ^3/uL Eosinophils # (Auto) 0.2 0-0.8 10 ^3/uL Basophils # (Auto) 0 0-0.2 10 ^3/uL Nucleated Red Blood Cells 0.1 % Sodium Level 138 136-145 mmol/L Potassium Level 4.3 3.5-5.1 mmol/L Chloride Level 102 98-107 mmol/L Carbon Dioxide Level 27 20-31 mmol/L Anion Gap 9 5-15 Blood Urea Nitrogen 11 9-23 mg/dL Creatinine 0.76 0.550-1.02 mg/dL Glomerular Filtration Rate Calc 80 >90 mL/min BUN/Creatinine Ratio 14.5 10.0-20.0 Serum Glucose 115 H 74-106 mg/dL Calcium Level 8.6 L 8.7-10.4 mg/dL Total Bilirubin < 0.2 L 0.2-1.0 mg/dL Aspartate Amino Transferase (AST) 17 13-40 U/L Alanine Aminotransferase (ALT) < 9 7-40 U/L Alkaline Phosphatase 81 46-116 U/L Total Protein 6.3 5.7-8.2 g/dL Albumin 3.7 3.2-4.8 g/dL Influenza Type A Antigen Negative Negative Influenza Type B Antigen Negative Negative SARS-CoV-2 Antigen (Rapid) Negative NEGATIVE Lipase 43 12-53 U/L Thyroid Stimulating Hormone (TSH) 2.55 0.55-4.78 uIU/mL Assessment/Plan Plan Patient is a 79-year-old female who was sent back from [place] (was sent there secondary to pancreatic mass for pancreatic biopsy). While being managed on tele floor in our hospital, patient was found to have atrial fibrillation (EKG revealed atrial flutter with variable block) and cardiology was involved. Patient denies any previous knowledge of atrial fibrillation/irregular heartbeat. Patient denies previous cardiac problem. 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 She denies chest pains/shortness of breath/palpitations/leg swellings/orthopnea/PND. Awhile back (few years ago), after left arm DVT, the patient was on anticoagulation for a while. Morbidly obese. Not in acute distress. Lying flat in bed. No JVD. Mucosa is pink and wet. No carotid bruit. No JVD. Not using accessory muscles of breathing. Lungs are clear to auscultation. Cardiac: Irregular, no thrill/gallop. Abdomen is soft. Bowel sound is positive. Extremities reveal 1+ edema bilaterally. Past medical history includes hyperlipidemia, morbid obesity, arthritis, old history of colon cancer (9095), diverticulosis, pancreatitis, pancreatic mass, (increased CA-19-9?) and old history of DVT. She has had FNA/pancreatic biopsy recently in [place] (unknown finding). She also has had acalculous cholecystitis previously. Echocardiogram of July 2021 (performed in [facility]) had revealed ejection fraction of 55%, left atrial enlargement, RVH TSH: 2.55 Creatinine: 0.85 Potassium: 4.0 Chest x-ray revealed: 1. New right upper extremity PICC line with its tip in the mid SVC. 2. Left lung base scarring. The lungs are otherwise clear. The right costophrenic angle is not imaged here. 3. Atherosclerotic vascular disease. EKG revealed atrial flutter with variable blocks (controlled rate) Tele reveals atrial fibrillation with moderate ventricular response Patient is a 79-year-old female who came back from higher level of care after pancreatic biopsy for the reported finding of pancreatic mass. Does have old history of pancreatitis. Reportedly had DVT many years ago. While being managed on telemetry floor was found to have atrial flutter/fibrillation with controlled rate. This is a new finding for the patient. As the rate has been controlled, most likely the patient has had this previously (usually a new onset AFib/flutter presents with RVR). Recognizing patient's age and comorbidities CHADS-VASc score is considered elevated and long-term full anticoagulation is advised (if no contraindication) Morbid obesity Pancreatic mass Old history of DVT Hyperlipidemia DJD Atrial fibrillation Atrial flutter with variable block Cardiac suggestion for management: Manage on telemetry Follow-up electrolytes and kidney function tests and correct abnormalities. Keep potassium above 4 and magnesium above 2 Request for Echocardiogram Request for troponin/BNP Long-term full anticoagulation is advised Evaluation/management/follow-up on pancreatic mass/the result of FNA and comorbi dities as per primary team/GI Further evaluation and management depends on the above and clinical course Thank you for consultation A total of 75 minutes was spent reviewing the patient record, examining the patient, making a diagnostic and therapeutic plan, discussing this plan with medical personnel, following up on diagnostic studies and following the patient for clinical stability excluding any and all procedures. At least 50% of this time was spent in direct, [id number] contact. Thank you for allowing me to participate in this patient's care. Further recommendations will depend on patient's clinical course. Please do not hesitate to contact me if you have any questions or concerns. This medical document was created using electronic medical record system with [employer] dictation system. Although this document has been carefully reviewed, there may still be some phonetic and typographical errors. These areas are purely typographical due to the imperfection of the software programs, and do not reflect any compromise in the patient's medical care. Plan discussed with: Patient, Other (nurse) DARSHANA CHOWDHURY MD September 14, 2024 08:23
[2024-09-14] MEDS ORDERED: ENOXAPARIN SOD 40 MG/0.4 ML SYRINGE SC SCH (10:00)
--- NOTE | 2024-09-14 12:34 | DVHPN2 ---
Progress Note - Dictate Date Seen: September 14, 2024 Medical Necessity Reason Pt with a Central, PICC or Fol: Yes vital signs Vital Sign Date Time Temp Pulse Resp B/P (MAP) Pulse Ox O2 Delivery O2 Flow Rate FiO2 09/14/24 09:17 84 18 132/68 09/14/24 08:20 97.4 95 97.4 09/14/24 08:00 Room Air* 0 21 Total Intake and Output 09/13/24 09/13/24 09/14/24 15:00 23:00 07:00 Intake Total 150 ml 200 ml Balance 150 ml 200 ml medications Current Medications Medications Dose Ordered Sig/Isaiah Route Start Time Stop Time Status Last Admin Dose Admin Nitroglycerin 0.4 mg Q5MINP PRN SL 09/13/24 13:00 Sodium Chloride 1,000 ml @ 120 mls/hr Q8H20M IV 09/13/24 13:30 09/13/24 15:43 120 MLS/HR Acetaminophen/ Hydrocodone Bitart 1 tab Q4HP PRN PO 09/13/24 13:30 09/13/24 20:44 1 TAB Ondansetron HCl 4 mg Q4HP PRN IV 09/13/24 13:30 Docusate Sodium 100 mg BIDPRN PRN PO 09/13/24 13:30 Acetaminophen 650 mg Q6HP PRN PO 09/13/24 13:30 Enoxaparin Sodium 40 mg DAILY SC 09/14/24 10:00 Cancel Hydromorphone HCl 1 mg Q4HPRN PRN IV 09/13/24 13:30 09/14/24 08:47 1 MG Enoxaparin Sodium 90 mg Q12H SC 09/13/24 18:00 09/13/24 17:55 90 MG objective General Appearance: alert, no distress HEENT: EOMI, PERRLA, normal external inspect of ears, no icterus, no nasal drainage Neck: no carotid bruit, no jugular venous distention (JVD), no lymphadenopathy Chest: normal thorax Respiratory: clear to auscultation, normal air movement Cardiovascular: regular rate and rhythm, no diastolic murmur, no jugular venous distention (JVD), no rub, no systolic murmur Abdominal: soft, no hepatomegaly, no mass, no splenomegaly, no tenderness Genitourinary: grossly normal external Musculoskeletal: no joint tenderness, no swelling Extremities: normal pulses, no calf tenderness, no clubbing, no cyanosis, no edema Skin: no bruising, no jaundice, no rash Neurological: alert, No focal deficit laboratory and microbiology Laboratory Tests 09/14/24 07:00 Test 09/14/24 07:00 Range/Units Serum Glucose 115 H 74-106 mg/dL Problem List 1. Pancreatic tail mass Monitoring, Medication 2. Elevated CA19-9 Repeat Labs 3. Hx of Colon Cancer GI consult 4. Hx of DVT Monitoring, Lovenox 5. Atrial Fibrillation Cardiology Consult, EKG Assessment/Plan Subjective Patient is awake and alert. Objective Patient was admitted on September 13, 2024 as a direct admit from [facility]. Patient was found to have acute pancreatitis. She was recently weaned off TPN. Her lipase levels have now normalized and she has been tolerating a regular diet. Patient was sent to [facility] due to CT imaging, showed a pancreatic mass and her CA 19-9 levels were elevated at 450. Patient had a EUS done and biopsy results are currently pending. Patient was supposed to be discharged today, however, yesterday she developed AFib and flutter with RVR. Patient has now been on full dose Lovenox and amiodarone drip by Doctor Johnson. Plan Continue current treatment. Plan to transition to oral Eliquis and Antiarrhythmics for cardiology. Possible DC planning for tomorrow. Plan discussed with: Patient, Other JOSEMANUEL MELTON NP September 14, 2024 12:34
[2024-09-15] VITALS (8 sets, daily range): BP systolic 112–154; BP diastolic 66–81; PULSE 51–83; RESP 15–18; TEMP 97–98.7; O2SAT 94–97
[2024-09-15 05:49] LABS: Basophils # (auto) 0 10 ^3/uL (0-0.2); Eosinophils # (auto) 0.2 10 ^3/uL (0-0.8); Hemoglobin 11.6 g/dL (12.2-16.2); Mean Corpuscular Hgb Conc. 32.9 g/dL (32.0-36.0); Monocytes # (auto) 0.5 10 ^3/uL (0-1.3); Neutrophils # (auto) 3.6 10 ^3/uL (1.6-8.6); Red Cell Distribution Width 15.8 % (11.8-14.3)
[2024-09-15 05:51] LABS: Basophils % (auto) 0.6 % (0.0-2.0); Eosinophils % (auto) 3.3 % (0.0-7.0); Hematocrit 35.2 % (36.0-46.0); Lymphocytes # (auto) 1.7 10 ^3/uL (0.4-5.4); Lymphocytes % (auto) 27.7 % (10.0-50.0); Mean Corpuscular Hemoglobin 26.4 pg (28.0-32.0); Mean Corpuscular Volume 80.3 fL (80.0-100.0); Monocytes % (auto) 7.9 % (0.0-12.0); Neutrophils % (auto) 60.5 % (37.0-80.0); Nucleated Red Blood Cells % 0.3 %; Platelet Count (auto) 170 10^3/uL (140-450); Red Blood Cells 4.38 10^6/uL (4.0-5.20)
[2024-09-15 05:57] LABS: Albumin 3.7 g/dL (3.2-4.8); Alkaline Phosphatase 82 U/L (46-116); Anion Gap 9 (5-15); BUN/Creatinine Ratio 12.7 (10.0-20.0); Blood Urea Nitrogen 10 mg/dL (9-23); Calcium 8.8 mg/dL (8.7-10.4); Carbon Dioxide 27 mmol/L (20-31); Chloride 103 mmol/L (98-107); Sodium 139 mmol/L (136-145); Total Protein 6.2 g/dL (5.7-8.2)
[2024-09-15 06:07] LABS: Alanine Aminotransferase < 9 U/L (7-40); Aspartate Aminotransferase 9 U/L (13-40); Bilirubin, Total < 0.2 mg/dL (0.2-1.0); Glucose 119 mg/dL (74-106)
--- NOTE | 2024-09-15 06:45 | DVHSR ---
APPROVED REPORT EXAM: Two-dimensional and M-mode echocardiogram with Doppler and color Doppler. Blood Pressure: 114/64 mmHg INDICATION AFIB RISK FACTORS Height: 68, Weight: 208 DIMENSIONS LVDd4.7 (3.8-5.7cm)LA (2D)3.9 (1.9-4.0cm)Aortic Root3.9 (2.0-3.7cm) LVDs3.2 (2.5-4.0cm)LA (MM) (1.9-4.0cm)Aortic Cusp Exc1.7 (1.5-2.0cm) EF (%) 60.0 (55-70%)Rt. Atrium3.4 (1.9-4.0cm)Asc. Aorta cm Mitral Valve MitralMitral Stenosis E wave0.99m/sMV Mean GR.mmHg E/A ratio0.02D MVAcm2 Aortic Valve Aortic ValveAortic Stenosis V10.99m/Jessica Mean GR.3mmHg V21.13m/Jessica Peak GR.5mmHg LVOT Diameter2.0 (1.8-2.4cm)Doppler AVA2.75cm2 Pulmonic Valve V20.74m/s Tricuspid Valve TR Velocity2.34m/s [id number] Conclusion Left ventricle: Left ventricle was normal-sized with normal systolic function. LVEF was around 60%. There was no gross wall motion abnormality. Right ventricle was normal-sized with normal systolic function. Both atria were normal-sized. Aortic valve: Aortic valve was trileaflet. There was no aortic insufficiency/stenosis. There was t race mitral regurgitation. There was mild tricuspid regurgitation. There was trace pulmonary valve insufficiency. There was no echocardiographic evidence for pulmonary hypertension. Right ventricular systolic press ure was assessed at 32 mm Hg. There was no pericardial effusion.
--- NOTE | 2024-09-15 06:53 | DVHPN2 ---
Progress Note - Dictate Date Seen: September 15, 2024 Medical Necessity Reason Pt with a Central, PICC or Fol: Yes vital signs Vital Sign Date Time Temp Pulse Resp B/P (MAP) Pulse Ox O2 Delivery O2 Flow Rate FiO2 09/15/24 05:11 74 18 126/70 09/15/24 05:00 98.7 94 98.7 09/14/24 20:00 Room Air* 0 21 Total Intake and Output 09/14/24 09/14/24 09/15/24 15:00 23:00 07:00 Intake Total 554 ml 220 ml 360 ml Balance 554 ml 220 ml 360 ml medications Current Medications Medications Dose Ordered Sig/Isaiah Route Start Time Stop Time Status Last Admin Dose Admin Nitroglycerin 0.4 mg Q5MINP PRN SL 09/13/24 13:00 Sodium Chloride 1,000 ml @ 120 mls/hr Q8H20M IV 09/13/24 13:30 09/13/24 15:43 120 MLS/HR Acetaminophen/ Hydrocodone Bitart 1 tab Q4HP PRN PO 09/13/24 13:30 09/13/24 20:44 1 TAB Ondansetron HCl 4 mg Q4HP PRN IV 09/13/24 13:30 Docusate Sodium 100 mg BIDPRN PRN PO 09/13/24 13:30 Acetaminophen 650 mg Q6HP PRN PO 09/13/24 13:30 Enoxaparin Sodium 40 mg DAILY SC 09/14/24 10:00 Cancel Hydromorphone HCl 1 mg Q4HPRN PRN IV 09/13/24 13:30 09/15/24 04:41 1 MG Enoxaparin Sodium 90 mg Q12H SC 09/13/24 18:00 09/15/24 06:17 90 MG laboratory and microbiology Laboratory Tests 09/15/24 05:15 Test 09/15/24 05:15 Range/Units Serum Glucose 119 H 74-106 mg/dL Assessment/Plan Patient is a 79-year-old female who was sent back from [facility] (was sent there secondary to pancreatic mass for pancreatic biopsy). While being managed on tele floor in our hospital, patient was found to have atrial fibrillation (EKG revealed atrial flutter with variable block) and cardiology was involved. Patient denies any previous knowledge of atrial fibrillation/irregular heartbeat. Patient denies previous cardiac problem. 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 She denies chest pains/shortness of breath/palpitations/leg swellings/orthopnea/PND. Awhile back (few years ago), after left arm DVT, the patient was on anticoagulation for a while. Morbidly obese. Not in acute distress. Lying flat in bed. No JVD. Mucosa is pink and wet. No carotid bruit. No JVD. Not using accessory muscles of breathing. Lungs are clear to auscultation. Cardiac: Irregular, no thrill/gallop. Abdomen is soft. Bowel sound is positive. Extremities reveal 1+ edema bilaterally. Past medical history includes hyperlipidemia, morbid obesity, arthritis, old history of colon cancer, diverticulosis, pancreatitis, pancreatic mass, (increased CA-19-9?) and old history of DVT. She has had FNA/pancreatic biopsy recently in [facility] (unknown finding). She also has had acalculous cholecystitis previously. Echocardiogram of July 2021 (performed in [facility]) had revealed ejection fraction of 55%, left atrial enlargement, RVH TSH: 2.55 Creatinine: 0.85 - 0.76 - 0.79 Potassium: 4.0 - 4.3 - 4.0 Trop (high sensitive): 3 - 3 - 3 BNP: 183.27 Chest x-ray revealed: 1. New right upper extremity PICC line with its tip in the mid SVC. 2. Left lung base scarring. The lungs are otherwise clear. The right costophrenic angle is not imaged here. 3. Atherosclerotic vascular disease. EKG revealed atrial flutter with variable blocks (controlled rate) Tele revealed atrial fibrillation with moderate ventricular response, occasions of flutter with variable block (controlled rate) is also seen. Echocardiogram revealed: Left ventricle: Left ventricle was normal-sized with normal systolic function. LVEF was around 60%. There was no gross wall motion abnormality. Right ventricle was normal-sized with normal systolic function. Both atria were normal-sized. Aortic valve: Aortic valve was trileaflet. There was no aortic insufficiency/stenosis. There was trace mitral regurgitation. There was mild tricuspid regurgitation. There was trace pulmonary valve insufficiency. There was no echocardiographic evidence for pulmonary hypertension. Right ventricular systolic pressure was assessed at 32 mm Hg. There was no pericardial effusion. Patient is a 79-year-old female who came back from higher level of care after pancreatic biopsy for the reported finding of pancreatic mass. Does have old history of pancreatitis. Reportedly had DVT many years ago. While being managed on telemetry floor was found to have atrial flutter/fibrillation with controlled rate. This is a new finding for the patient. As the rate has been controlled, most likely the patient has had this previously (usually a new onset AFib/flutter presents with RVR). Recognizing patient's age and comorbidities CHADS-VASc score is considered elevated and long-term full anticoagulation is advised (if no contraindication). Morbid obesity Pancreatic mass Old history of DVT Hyperlipidemia DJD Atrial fibrillation Atrial flutter with variable block Cardiac suggestion for management: Manage on telemetry Follow-up electrolytes and kidney function tests and correct abnormalities. Keep potassium above 4 and magnesium above 2 Amiodarone: 200 mg PO BID Long-term full anticoagulation is advised (on therapeutic Lovenox for now). When/if no plan for any procedure, you may consider oral NOAC (for example: Eliquis) Evaluation/management/follow-up on pancreatic mass/the result of FNA and comorbidities as per primary team/GI Further evaluation and management depends on the above and clinical course A total of 55 minutes was spent reviewing the patient record, examining the patient, making a diagnostic and therapeutic plan, discussing this plan with medical personnel, following up on diagnostic studies and following the patient for clinical stability excluding any and all procedures. At least 50% of this time was spent in direct, [id number] contact. Thank you for allowing me to participate in this patient's care. Further recommendations will depend on patient's clinical course. Please do not hesitate to contact me if you have any questions or concerns. This medical document was created using electronic medical record system with [employer] computerized dictation system. Although this document has been carefully reviewed, there may still be some phonetic and typographical errors. These areas are purely typographical due to the imperfection of the software programs, and do not reflect any compromise in the patient's medical care. Plan discussed with: Patient, Other (nurse) DARSHANA CHOWDHURY MD September 15, 2024 06:53
[2024-09-15] MEDS: AMIODARONE HCL 200 MG TAB PO SCH (08:28)
--- NOTE | 2024-09-15 16:25 | DVHPN2 ---
Progress Note Date Seen: September 15, 2024 Medical Necessity Reason Pt with a Central, PICC or Fol: Yes Subjective Review of Systems: CVS:Normal, RESPIRATORY:Normal, GI:Normal Objective vital signs Vital Sign Date Time Temp Pulse Resp B/P (MAP) Pulse Ox O2 Delivery O2 Flow Rate FiO2 09/15/24 15:43 62 14 128/54 09/15/24 13:00 97.0 97 97.0 09/15/24 08:00 Room Air* 0 21 Total Intake and Output 09/14/24 09/14/24 09/15/24 15:00 23:00 07:00 Intake Total 554 ml 220 ml 360 ml Balance 554 ml 220 ml 360 ml medications Current Medications Medications Dose Ordered Sig/Isaiah Route Start Time Stop Time Status Last Admin Dose Admin Nitroglycerin 0.4 mg Q5MINP PRN SL 09/13/24 13:00 Sodium Chloride 1,000 ml @ 120 mls/hr Q8H20M IV 09/13/24 13:30 09/15/24 07:10 120 MLS/HR Acetaminophen/ Hydrocodone Bitart 1 tab Q4HP PRN PO 09/13/24 13:30 09/13/24 20:44 1 TAB Ondansetron HCl 4 mg Q4HP PRN IV 09/13/24 13:30 Docusate Sodium 100 mg BIDPRN PRN PO 09/13/24 13:30 Acetaminophen 650 mg Q6HP PRN PO 09/13/24 13:30 Enoxaparin Sodium 40 mg DAILY SC 09/14/24 10:00 Cancel Hydromorphone HCl 1 mg Q4HPRN PRN IV 09/13/24 13:30 09/15/24 15:13 1 MG Enoxaparin Sodium 90 mg Q12H SC 09/13/24 18:00 09/15/24 06:17 90 MG Amiodarone HCl 200 mg BID PO 09/15/24 10:00 Examination: GENERAL:Normal, LUNGS:Normal, CVS:Normal, ABDOMEN:Normal, SKIN:Normal, NEURO:Normal laboratory and microbiology Laboratory Tests 09/15/24 05:15 Test 09/15/24 05:15 Range/Units Serum Glucose 119 H 74-106 mg/dL Microbiology Date/Time Source Procedure Growth Status 09/13/24 14:30 Nose MRSA Screen - Final Complete Labs and/or images reviewed: Labs reviewed by me, Image(s) reviewed by me Problem List/Assessment/Plan Problem List/Assessment/Plan 1. Pancreatic tail mass Monitoring, Medication 2. Elevated CA19-9 Repeat Labs 3. Hx of Colon Cancer GI consult 4. Hx of DVT Monitoring, Lovenox 5. Atrial Fibrillation Cardiology Consult, EKG Assessment/Plan Subjective Patient is awake and alert. Objective Patient was admitted on September 13, 2024 as a direct admit from [facility]. Patient was found to have acute pancreatitis. She was recently weaned off TPN. Her lipase levels have now normalized and she has been tolerating a regular diet. Patient was sent to [facility] due to CT imaging, showed a pancreatic mass and her CA 19-9 levels were elevated at 450. Patient had a EUS done and biopsy results are currently pending. Patient was supposed to be discharged today, however, yesterday she developed AFib and flutter with RVR. Patient was transitioned to oral amio and eliquis 5 mg BID. If heart rate remains stable will Dc tomorrow Plan Continue current treatment. Possible DC planning for tomorrow. Plan discussed with: Patient Date of Service: September 15, 2024 Billing Provider: JUDY MCNEAL MD Common Visit Codes: [id number] INP/OBS CARE (MOD) GIULIANO PINA ADULT LITERACY TEACHER September 15, 2024 16:25
[2024-09-15] MEDS: diphenhdrAMINE HCL 50 MG/1 ML VL IV PRN (18:37)
[2024-09-15] MEDS: HYDROCORTISONE 2.5% TOPICAL CREAM 30GM TUBE TOP PRN (18:37)
[2024-09-15] MEDS: APIXABAN 5 MG TAB PO SCH (22:00)
[2024-09-16 01:00] VITALS: BP 103/64; PULSE 70; RESP 17; TEMP 97.9; O2SAT 94
[2024-09-16 05:06] VITALS: BP 115/61; PULSE 65; RESP 17; TEMP 98.7; O2SAT 98
[2024-09-16 08:00] VITALS: PULSE 63
--- NOTE | 2024-09-16 08:10 | DVHPN2 ---
Progress Note - Dictate Date Seen: September 16, 2024 Medical Necessity Reason Pt with a Central, PICC or Fol: Yes vital signs Vital Sign Date Time Temp Pulse Resp B/P (MAP) Pulse Ox O2 Delivery O2 Flow Rate FiO2 09/16/24 05:13 60 17 107/73 09/16/24 05:06 98.7 98 98.7 09/15/24 20:00 Room Air* 0 21 Total Intake and Output 09/15/24 09/15/24 09/16/24 15:00 23:00 07:00 Intake Total 200 ml 750 ml 916.62 ml Balance 200 ml 750 ml 916.62 ml medications Current Medications Medications Dose Ordered Sig/Isaiah Route Start Time Stop Time Status Last Admin Dose Admin Nitroglycerin 0.4 mg Q5MINP PRN SL 09/13/24 13:00 Acetaminophen/ Hydrocodone Bitart 1 tab Q4HP PRN PO 09/13/24 13:30 09/15/24 20:46 1 TAB Ondansetron HCl 4 mg Q4HP PRN IV 09/13/24 13:30 Docusate Sodium 100 mg BIDPRN PRN PO 09/13/24 13:30 Acetaminophen 650 mg Q6HP PRN PO 09/13/24 13:30 Enoxaparin Sodium 40 mg DAILY SC 09/14/24 10:00 Cancel Hydromorphone HCl 1 mg Q4HPRN PRN IV 09/13/24 13:30 09/16/24 04:43 1 MG Amiodarone HCl 200 mg BID PO 09/15/24 10:00 Apixaban 5 mg BID PO 09/15/24 22:00 Diphenhydramine HCl 25 mg Q6HP PRN IV 09/15/24 18:15 09/16/24 01:14 25 MG Hydrocortisone 1 applic BIDP PRN TOP 09/15/24 18:15 09/16/24 01:29 1 APPLIC laboratory and microbiology Laboratory Tests 09/15/24 05:15 Test 09/15/24 05:15 Range/Units Serum Glucose 119 H 74-106 mg/dL Assessment/Plan Patient is a 79-year-old female who was sent back from [facility] [place] [place] (was sent there secondary to pancreatic mass for pancreatic biopsy). While being managed on tele floor in our hospital, patient was found to have atrial fibrillation (EKG revealed atrial flutter with variable block) and cardiology was involved. Patient denies any previous knowledge of atrial fibrillation/irregular heartbeat. Patient denies previous cardiac problem. 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 She denies chest pains/shortness of breath/palpitations/leg swellings/orthopnea/PND. Awhile back (few years ago), after left arm DVT, the patient was on anticoagulation for a while. Morbidly obese. Not in acute distress. Lying flat in bed. No JVD. Mucosa is pink and wet. No carotid bruit. No JVD. Not using accessory muscles of breathing. Lungs are clear to auscultation. Cardiac: Irregular, no thrill/gallop. Abdomen is soft. Bowel sound is positive. Extremities reveal 1+ edema bilaterally. Past medical history includes hyperlipidemia, morbid obesity, arthritis, old history of colon cancer, diverticulosis, pancreatitis, pancreatic mass, (increased CA-19-9?) and old history of DVT. She has had FNA/pancreatic biopsy recently in [facility] [place] [place] (unknown finding). She also has had acalculous cholecystitis previously. Echocardiogram of July 2021 (performed in [facility]) had revealed ejection fraction of 55%, left atrial enlargement, RVH TSH: 2.55 Creatinine: 0.85 - 0.76 - 0.79 Potassium: 4.0 - 4.3 - 4.0 Trop (high sensitive): 3 - 3 - 3 BNP: 183.27 Chest x-ray revealed: 1. New right upper extremity PICC line with its tip in the mid SVC. 2. Left lung base scarring. The lungs are otherwise clear. The right costophrenic angle is not imaged here. 3. Atherosclerotic vascular disease. EKG revealed atrial flutter with variable blocks (controlled rate) Tele revealed atrial fibrillation with moderate ventricular response, occasions of flutter with variable block (controlled rate) is also seen. Echocardiogram revealed: Left ventricle: Left ventricle was normal-sized with normal systolic function. LVEF was around 60%. There was no gross wall motion abnormality. Right ventricle was normal-sized with normal systolic function. Both atria were normal-sized. Aortic valve: Aortic valve was trileaflet. There was no aortic insufficiency/stenosis. There was trace mitral regurgitation. There was mild tricuspid regurgitation. There was trace pulmonary valve insufficiency. There was no echocardiographic evidence for pulmonary hypertension. Right ventricular systolic pressure was assessed at 32 mm Hg. There was no pericardial effusion. Patient is a 79-year-old female who came back from higher level of care after pancreatic biopsy for the reported finding of pancreatic mass. Does have old history of pancreatitis. Reportedly had DVT many years ago. While being managed on telemetry floor was found to have atrial flutter/fibrillation with controlled rate. This is a new finding for the patient. As the rate has been controlled, most likely the patient has had this previously (usually a new onset AFib/flutter presents with RVR). Recognizing patient's age and comorbidities CHADS-VASc score is considered elevated and long-term full anticoagulation is advised (if no contraindication). Morbid obesity Pancreatic mass Old history of DVT Hyperlipidemia DJD Atrial fibrillation Atrial flutter with variable block Cardiac suggestion for management: Manage on telemetry Follow-up electrolytes and kidney function tests and correct abnormalities. Keep potassium above 4 and magnesium above 2 Amiodarone: 200 mg PO BID Long-term full anticoagulation is advised (on Eliquis for now). Evaluation/management/follow-up on pancreatic mass/the result of FNA and comorbidities as per primary team/GI Cardiac mullen, stable Further evaluation and management depends on the above and clinical course A total of 55 minutes was spent reviewing the patient record, examining the patient, making a diagnostic and therapeutic plan, discussing this plan with medical personnel, following up on diagnostic studies and following the patient for clinical stability excluding any and all procedures. At least 50% of this time was spent in direct, [id number] contact. Thank you for allowing me to participate in this patient's care. Further recommendations will depend on patient's clinical course. Please do not hesitate to contact me if you have any questions or concerns. This medical document was created using electronic medical record system with [employer] computerized dictation system. Although this document has been carefully reviewed, there may still be some phonetic and typographical errors. These areas are purely typographical due to the imperfection of the software programs, and do not reflect any compromise in the patient's medical care. Plan discussed with: Patient, Other (nurse) DARSHANA CHOWDHURY MD September 16, 2024 08:10
[2024-09-16 08:39] VITALS: BP 119/66; PULSE 63; RESP 18; TEMP 97; O2SAT 97
[2024-09-16 09:42] LABS: Basophils # (auto) 0 10 ^3/uL (0-0.2); Basophils % (auto) 0.7 % (0.0-2.0); Eosinophils # (auto) 0.3 10 ^3/uL (0-0.8); Eosinophils % (auto) 4.5 % (0.0-7.0); Hematocrit 41.1 % (36.0-46.0); Hemoglobin 13.3 g/dL (12.2-16.2); Lymphocytes # (auto) 2.1 10 ^3/uL (0.4-5.4); Lymphocytes % (auto) 32.4 % (10.0-50.0); Mean Corpuscular Hemoglobin 26.3 pg (28.0-32.0); Mean Corpuscular Hgb Conc. 32.5 g/dL (32.0-36.0); Monocytes # (auto) 0.5 10 ^3/uL (0-1.3); Monocytes % (auto) 8.1 % (0.0-12.0); Neutrophils # (auto) 3.4 10 ^3/uL (1.6-8.6); Neutrophils % (auto) 54.3 % (37.0-80.0); Nucleated Red Blood Cells % 0.6 %; Platelet Count (auto) 159 10^3/uL (140-450); Red Blood Cells 5.07 10^6/uL (4.0-5.20); Red Cell Distribution Width 16.2 % (11.8-14.3); White Blood Cell 6.3 10^3/uL (4.4-10.8)
[2024-09-16] MEDS ORDERED: APIX5TAB PO (09:42)
[2024-09-16] MEDS ORDERED: AMIO200T13 PO (09:42)
[2024-09-16] MEDS ORDERED: HYDR-4798 PO (09:44)
[2024-09-16] MEDS ORDERED: NALO4SPR2 (09:44)
--- NOTE | 2024-09-16 09:46 | DVHDS2 ---
Discharge Summary Date of Admission September 13, 2024 at 12:32 Date of Discharge: September 16, 2024 Admitting Diagnosis Pancreatic mass Labs/Diagnostic Data: Laboratory Results Test 09/16/24 09:24 09/16/24 06:48 09/14/24 10:26 09/14/24 07:00 White Blood Count 6.3 10^3/uL (4.4-10.8) Red Blood Count 5.07 10^6/uL (4.0-5.20) Hemoglobin 13.3 g/dL (12.2-16.2) Hematocrit 41.1 % (36.0-46.0) Mean Corpuscular Volume 81.0 fL (80.0-100.0) Mean Corpuscular Hemoglobin 26.3 pg (28.0-32.0) Mean Corpuscular Hemoglobin Concent 32.5 g/dL (32.0-36.0) Red Cell Distribution Width 16.2 % (11.8-14.3) Platelet Count 159 10^3/uL (140-450) Mean Platelet Volume 10.2 fL (6.9-10.8) Neutrophils (%) (Auto) 54.3 % (37.0-80.0) Lymphocytes (%) (Auto) 32.4 % (10.0-50.0) Monocytes (%) (Auto) 8.1 % (0.0-12.0) Eosinophils (%) (Auto) 4.5 % (0.0-7.0) Basophils (%) (Auto) 0.7 % (0.0-2.0) Neutrophils # (Auto) 3.4 10 ^3/uL (1.6-8.6) Lymphocytes # (Auto) 2.1 10 ^3/uL (0.4-5.4) Monocytes # (Auto) 0.5 10 ^3/uL (0-1.3) Eosinophils # (Auto) 0.3 10 ^3/uL (0-0.8) Basophils # (Auto) 0 10 ^3/uL (0-0.2) Nucleated Red Blood Cells 0.6 % Troponin I High Sensitivity 3 ng/L (</=34) B-Type Natriuretic Peptide 183.27 pg/mL (0-100) Test 09/13/24 14:30 09/13/24 14:23 Influenza Type A Antigen Negative (Negative) Influenza Type B Antigen Negative (Negative) SARS-CoV-2 Antigen (Rapid) Negative (NEGATIVE) Lipase 43 U/L (12-53) Thyroid Stimulating Hormone (TSH) 2.55 uIU/mL (0.55-4.78) Other Laboratory Tests 09/16/24 06:48 Brief Hx & Hospital Course: Patient was admitted on September 13, 2024 as a direct [place] [facility] [place] was found to have acute pancreatitis. She was recently weaned off TPN. Her lipase levels have now normalized and she has been tolerating a regular diet. Patient was [place] [facility] [place], showed a pancreatic mass and her CA 19-9 levels were elevated at 450. Patient had a EUS done and biopsy results are currently pending. 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 Patient is tolerating well patient was advised to follow up with PCP and follow up with Dr. Jaciel DIAS for pancreatic biopsy results, patient verbalized understanding. Patient will be sent home on amiodarone 200 mg b.i.d. and Eliquis 5 mg b.i.d.. Patient will also need to follow up with Cardiology as outpatient. Patient verbalized understanding and will be discharged Condition at Discharge: Fair Final Diagnosis/Problems List 1. Pancreatic tail mass 2. Elevated CA19-9 3. Hx of Colon Cancer GI consult 4. Hx of DVT 5. Atrial Fibrillation/ atrial flutter Discharge Disposition: Home Discharge Instruct/Medications Diet: Cardiac 2g Na,low cholest Activity: No Restrictions, As Tolerated Follow Up/Referral: ARUN Grissom for pancratic biopsy results PCP within 1 week Discharge Statement: "Patient was advised to return to the ER or call 911 if any headaches, dizziness, shortness of breath, chest pain, abdominal pain, bleeding, fevers, or worsening of medical condition. Patient was counseled about treatment plan, medications, possible side effects, patientverbalized understanding. All questions were answered to the best of my ability. This discharge took greater then 30 minutes in planning, reviewing documentation, counseling the patient, and discussing with other team members." ASSESSMENT ASSESSMENT Assessment 1. Pancreatic tail mass 2. Elevated CA19-9 3. Hx of Colon Cancer GI consult 4. Hx of DVT 5. Atrial Fibrillation/ atrial flutter GIULIANO PINA September 16, 2024 09:46
[2024-09-16 10:02] LABS: Alanine Aminotransferase 11 U/L (7-40); Alkaline Phosphatase 92 U/L (46-116); Anion Gap 12 (5-15); Aspartate Aminotransferase 13 U/L (13-40); BUN/Creatinine Ratio 11.8 (10.0-20.0); Bilirubin, Total 0.2 mg/dL (0.2-1.0); Blood Urea Nitrogen 11 mg/dL (9-23); Calcium 9.6 mg/dL (8.7-10.4); Carbon Dioxide 25 mmol/L (20-31); Chloride 102 mmol/L (98-107); Glucose 120 mg/dL (74-106); Potassium 4.2 mmol/L (3.5-5.1); Sodium 139 mmol/L (136-145); Total Protein 6.8 g/dL (5.7-8.2)
[2024-09-16] MEDS: ONDANSETRON HCL 4 MG/2 ML VIAL IV PRN (12:15)
[2024-09-16 12:51] VITALS: BP 128/72; PULSE 67; RESP 6; TEMP 97.5; O2SAT 98
[2024-09-16 13:22] VITALS: TEMP 36.4
== END 2024-09-16 15:38 | disposition home or self-care (01) | DRG 439 ==
LOC: TELE-EAST 12:32
PROVIDERS: ADMIT Nurse Practitioner Family; ATTEND Nurse Practitioner Family
DX: K85.90 Acute pancreatitis without necrosis or infection, unspecified (principal); I48.92 Unspecified atrial flutter; I48.91 Unspecified atrial fibrillation; K86.9 Disease of pancreas, unspecified; E11.9 Type 2 diabetes mellitus without complications; E78.5 Hyperlipidemia, unspecified; E66.01 Morbid (severe) obesity due to excess calories; M19.09 Primary osteoarthritis, other specified site; Z83.3 Family history of diabetes mellitus; Z79.899 Other long term (current) drug therapy; Z88.5 Allergy status to narcotic agent; Z86.718 Personal history of other venous thrombosis and embolism; Z85.038 Personal history of other malignant neoplasm of large intestine; Z79.01 Long term (current) use of anticoagulants; Z90.710 Acquired absence of both cervix and uterus; Z68.31 Body mass index [BMI] 31.0-31.9, adult
CPT/HCPCS: 36415; 71045; 80053; 83690; 83880; 84443; 84484; 85025; 87081; 87426; 87804; 93005; 93306; 97116; 97163; 97530; G0378; J2405